=== PATIENT | female | born 1955 ===

== ENCOUNTER 2016-11-17 14:03 | Inpatient (IN) | payer MEDICARE, OTHER ==
[2016-11-17 14:42] VITALS: BMI 27.0
[2016-11-17 15:16] LABS: EOS # 0.1 K/uL (0.0-0.7); EOS % 6.2 % (0.0-4.0); HEMOGLOBIN 13.4 g/dL (11.0-16.0); LYMPH # 0.9 K/uL (1.0-4.3); MEAN CELL VOLUME 95.8 fL (81.0-99.0); MEAN CORPUSCULAR HGB CONC 33.4 g/dL (33.0-37.0); MEAN PLATELET VOLUME 8.9 fL (7.2-11.7); MONO # 0.4 K/uL (0.0-0.8); NEUT # 0.7 K/uL (1.8-7.0); NEUT % 34.8 % (50.0-75.0); NRBC % 0.4 % (0.0-2.0); RBC 4.19 Mil/uL (3.80-5.20); RED CELL DISTRIBUTION WIDTH 14.2 % (11.5-14.5); WHITE BLOOD COUNT 2.1 K/uL (4.8-10.8)
[2016-11-17 15:20] LABS: ALBUMIN 3.4 g/dL (3.5-5.0)
--- NOTE | 2016-11-17 15:22 | C.PDOC ---
History Of Present Illness 61 y/o female pmhx bipolar disorder, depression, schizoaffective disorder presents to the ED for psychiatric evaluation. Per , pt has been having visual and auditory hallucinations x5 days, he suspects due to medication change. Pt was recently put on risperidone. Denies SI, HI or any other complaints. Time Seen by Provider: 11/17/16 14:18 Chief Complaint (Nursing): Psychiatric Evaluation History Per: Patient History/Exam Limitations: no limitations Onset/Duration Of Symptoms: Days Current Symptoms Are (Timing): Still Present Suicide/Self Injury Attempted (Context): None Severity: Moderate Associated Symptoms: denies: Suicidal Thoughts Involuntary Hold By: None Recent travel outside of the [place]: No Past Medical History Reviewed: Historical Data, Nursing Documentation, Vital Signs Vital Signs: Last Vital Signs Temp 98.9 F 11/17/16 18:49 Pulse 97 H 11/17/16 18:49 Resp 15 11/17/16 18:49 BP 127/77 11/17/16 18:49 Pulse Ox 95 11/17/16 18:50 - Medical History PMH: Anxiety, Depression, Personality Disorder, Schizophrenia, Seizures Family History: States: Unknown Family Hx - Social History Hx Tobacco Use: No Hx Alcohol Use: No Hx Substance Use: No - Immunization History Hx Tetanus Toxoid Vaccination: No Hx Influenza Vaccination: No Hx Pneumococcal Vaccination: No Review Of Systems Constitutional: Negative for: Fever Cardiovascular: Negative for: Chest Pain Respiratory: Negative for: Shortness of Breath Gastrointestinal: Negative for: Abdominal Pain Psych: Positive for: Other (auditory, visual hallucinations). Negative for: Suicidal ideation Physical Exam - Physical Exam Appears: Non-toxic, Other (somnolent) Skin: Warm, Dry, No Diaphoretic, No Rash Head: Atraumatic, Normacephalic Eye(s): bilateral: Normal Inspection, PERRL (dilated), EOMI Nose: Normal Oral Mucosa: Moist Neck: Normal, Normal ROM, Supple Chest: Symmetrical Cardiovascular: Rhythm Regular, No Murmur Respiratory: Normal Breath Sounds, No Rales, No Rhonchi, No Wheezing Gastrointestinal/Abdominal: Normal Exam, Soft, No Tenderness Extremity: Normal ROM, Other (spontaneous right leg twitching) Neurological/Psych: Oriented x3, Normal Speech, Other (drowsy, somonlent) Pain Response: Withdraws With Pain ED Course And Treatment - Laboratory Results Result Diagrams: 11/17/16 15:07 11/17/16 15:07 O2 Sat by Pulse Oximetry: 95 (room air) Pulse Ox Interpretation: Normal Medical Decision Making Medical Decision Making: Plan: * UA * labs * CRISIS eval machine worker Gem evaluates patient at bedside. Labs reviewed, positive cocaine on UDS Patient is very drowsy and arousable to painful stimuli. She is unable to complete evaluation by crisis. Also notified Dr Austin Lincoln about patient in ED, and will place on observation Disposition - Disposition Disposition: HOSPITALIZED Disposition Time: 18:44 Condition: STABLE - POA Present On Arrival: None - Clinical Impression Clinical Impression: Schizoaffective disorder, Drug abuse - PA / PHOTOTYPESETTER OPERATOR / Resident Statement MD/DO has reviewed & agrees with the documentation as recorded. - Scribe Statement The provider has reviewed the documentation as recorded by the Scribe Raffy Velez All medical record entries made by the Scribe were at my direction and personally dictated by me. I have reviewed the chart and agree that the record accurately reflects my personal performance of the history, physical exam, medical decision making, and the department course for this patient. I have also personally directed, reviewed, and agree with the discharge instructions and disposition. Decision To Admit - Pt Status Changed To: Hospital Disposition Of: Observation - . Bed Request Type: Regular Admitting Physician: Surendra Lincoln Patient Diagnosis: Schizoaffective disorder, Drug abuse
[2016-11-17 15:23] LABS: AST/SGOT 60 U/L (14-36); GFR AFRICAN-AMERICAN > 60; GFR NON-AFRICAN AMERICAN > 60
[2016-11-17 15:24] LABS: ALT/SGPT 53 U/L (9-52); BLOOD UREA NITROGEN 14 mg/dL (7-17); CALCIUM 8.9 mg/dl (8.6-10.4)
[2016-11-17 16:00] LABS: URINE BILIRUBIN 1+ (NEGATIVE); URINE BLOOD NEGATIVE (NEGATIVE); URINE CLARITY Clear (Clear); URINE COLOR Amber (YELLOW); URINE GLUCOSE (UA) NORMAL (Normal); URINE LEUKOCYTE ESTERASE NEG Leu/uL (Negative); URINE NITRATE NEGATIVE (NEGATIVE); URINE PROTEIN 1+ mg/dL (NEGATIVE)
[2016-11-17 16:09] LABS: OPIATES, UR NEGATIVE (NEGATIVE); PHENCYCLIDINE, UR NEGATIVE (NEGATIVE)
[2016-11-17 16:11] LABS: BENZODIAZEPINES, UR NEGATIVE (NEGATIVE)
[2016-11-17 16:12] LABS: BARBITURATES, UR NEGATIVE (NEGATIVE)
[2016-11-18] MEDS ORDERED: Potassium Chloride 20 mEq ER Tab PO ONE (09:15)
[2016-11-18] MEDS: Enoxaparin 40 mg Syringe SC SCH (09:38)
--- NOTE | 2016-11-18 11:16 | RAD ---
PROCEDURE: Right Knee Radiographs. HISTORY: possible fracture, history of fall COMPARISON: None. FINDINGS: BONES: There is an acute displaced fracture in the medial tibial plateau with 3 mm distraction of fracture fragments and inferior displacement. Bone mineralization is normal. JOINTS: Normal. JOINT EFFUSION: There is a moderate suprapatellar joint effusion. OTHER FINDINGS: None. IMPRESSION: Acute displaced fracture in the medial tibial plateau and moderate suprapatellar joint effusion.
--- NOTE | 2016-11-18 11:29 | CP.PCM.CON ---
History of Present Illness - History of Present Illness History of Present Illness: NEURO CONSULT NOTE: 11/18/16 CHIEF COMPLAINT: CONFUSION. HPI: 61 y/o female pmhx bipolar disorder, depression, schizoaffective disorder presents to the ED for psychiatric evaluation. Per , pt has been having visual and auditory hallucinations x5 days, he suspects due to medication change. Patient was recently put on risperidone. Denies SI, HI or any other complaints. She mildly rigid from risperdone and will need congentin. She follows simple commands. Utox positive for cocaine. Discussed case with at bedside. No focal weakness in the extremities. ROS: 14 POINT REVIEW OF SYMPTOMS IS NEGATIVE PER HPI. ALLERGIES: NONE SOCIAL HISTORY: NO ILLICIT DRUG USE, SMOKING, OR ETOH USE. FAMILY: NON CONTRIBUTORY. MEDICATIONS: REVIEWED BY NURSE'S RECONCILIATION SHEET. PAST MEDICAL HISTORY: BIPOLAR DISORDER, SCHIZOAFFECTIVE, DEPRESSION. PHYSICAL EXAM: VITAL SIGNS: REVIEWED BY THE CHART GENERAL EXAM: PATIENT SEEN IN BED, IN NO ACUTE DISTRESS HEENT: PERRLA, EOMI, NECK SUPPLE, NO JVD, NO ADENOPATHY CVS: S1, S2, RRR, NO MURMURS NOTED LUNGS: CLEAR TO AUSCULTATION, NO ADVENTITIOUS SOUNDS ABDOMEN: SOFT AND NONTENDER EXTREMITIES: NO CLUBBING OR CYANOSIS. PP 2+ B/L NEURO: PT IS ALERT AND ORIENTED TO PERSON, PLACE, AND YEAR. , RECALL TO 5 MINUTES 1/3, POOR ATTENTION SPAN, SLOW THOUGHT PROCESS. FLAT AFFECT. SPEECH IS FLUENT WITHOUT ERRORS, CN II-XII INTACT, MOTOR EXAM: NORMAL TONE, NORMAL BULK OF MUSCLE, MOVES ALL EXTREMITIES EQUALLY, NO PRONATOR DRIFT SEEN. SENSORY EXAM: LIGHT TOUCH, PIN PRICK UP TO CALVES B/L, PROPRIOCEPTION , VIBRATION ARE INTACT B/L DEEP TENDON REFLEXES: 2+ THROUGHOUT. COORDINATION: FINGER TO NOSE IS INTACT. HEEL TO KAUR IS INTACT GAIT: NORMAL. LABS: REVIEWED BY THE CHART. ASSESSMENT AND PLAN: 61 y/o female pmhx bipolar disorder, depression, schizoaffective disorder presents to the ED for psychiatric evaluation. Per , pt has been having visual and auditory hallucinations x5 days, he suspects due to medication change. Patient was recently put on risperidone. Denies SI, HI or any other complaints. She mildly rigid from risperdone and will need congentin. She follows simple commands. Utox positive for cocaine. Discussed case with at bedside. No focal weakness in the extremities. IMPRESSION: CONFUSION AND RIGIDITY OF EXTREMITIES SEC TO RISPERDONE. 1. ASA 81 MG FOR STROKE PREVENTION 2.PSYCH CONSULT FOR MEDICATION ADJUSTMENT.NEEDS BETTER SLEEP HYGIENE. 3. FIORECET AT THE ACUTE ONSET OF HEADACHE. 4.CONGENTIN SHOULD BE CONSIDERED PER PSYCH. THANK YOU. Jordy BROWN MD Past Patient History - Infectious Disease Hx of Infectious Diseases: None - Past Social History Smoking Status: Never Smoked - CARDIAC Hx Hypertension: No - PULMONARY Hx Tuberculosis: No - NEUROLOGICAL Hx Seizures: Yes - HEMATOLOGICAL/ONCOLOGICAL Hx Human Immunodeficiency Virus (HIV): No - MUSCULOSKELETAL/RHEUMATOLOGICAL Hx Falls: Yes - GENITOURINARY/GYNECOLOGICAL Hx Sexually Transmitted Disorders: No - PSYCHIATRIC Hx Anxiety: Yes Hx Depression: Yes Hx Schizophrenia: Yes Hx Substance Use: No - SURGICAL HISTORY Hx Surgeries: No - ANESTHESIA Hx Anesthesia: No Meds Allergies/Adverse Reactions: Allergies Allergy/AdvReac Type Severity Reaction Status Date / Time No Known Allergies Allergy Verified 11/17/16 14:38 - Medications Medications: Current Medications Benztropine Mesylate (Cogentin) 1 mg PO BID [facility] Last Admin: 11/18/16 09:38 Dose: 1 mg Enoxaparin Sodium (Lovenox) 40 mg SC DAILY [facility] Last Admin: 11/18/16 09:38 Dose: 40 mg Home Med (Duloxetine [Cymbalta]) 60 mg PO BID [facility] Lamotrigine (Lamictal) 200 mg PO BID [facility] Last Admin: 11/18/16 09:37 Dose: 200 mg Pneumococcal Polyvalent Vaccine (Pneumovax 23 Vaccine) 0.5 ml IM .ONCE ONE Stop: 11/19/16 10:01 Results - Vital Signs Recent Vital Signs: Last Vital Signs Temp 98.5 F 11/18/16 10:28 Pulse 83 11/18/16 10:28 Resp 18 11/18/16 10:28 BP 142/84 11/18/16 10:28 Pulse Ox 97 11/17/16 23:26 - Labs Result Diagrams: 11/17/16 15:07 11/17/16 15:07
--- NOTE | 2016-11-18 20:52 | CP.PCM.HP ---
Past Patient History - Infectious Disease Hx of Infectious Diseases: None - Past Social History Smoking Status: Never Smoked - CARDIAC Hx Hypertension: No - PULMONARY Hx Tuberculosis: No - NEUROLOGICAL Hx Seizures: Yes - HEMATOLOGICAL/ONCOLOGICAL Hx Human Immunodeficiency Virus (HIV): No - MUSCULOSKELETAL/RHEUMATOLOGICAL Hx Falls: Yes - GENITOURINARY/GYNECOLOGICAL Hx Sexually Transmitted Disorders: No - PSYCHIATRIC Hx Anxiety: Yes Hx Depression: Yes Hx Schizophrenia: Yes Hx Substance Use: No - SURGICAL HISTORY Hx Surgeries: No - ANESTHESIA Hx Anesthesia: No Meds Allergies/Adverse Reactions: Allergies Allergy/AdvReac Type Severity Reaction Status Date / Time No Known Allergies Allergy Verified 11/17/16 14:38 Results - Vital Signs Recent Vital Signs: Last Vital Signs Temp 98.5 F 11/18/16 10:28 Pulse 83 11/18/16 10:28 Resp 18 11/18/16 10:28 BP 142/84 11/18/16 10:28 Pulse Ox 97 11/17/16 23:26 - Labs Result Diagrams: 11/17/16 15:07 11/17/16 15:07 Assessment & Plan - Assessment and Plan (Free Text) Plan: pt answer question but inappropriately there is a husabnd hwo cliams he is legally maried adn there is daughter so asked hosp representaive to talkto thema bout nok status cont same psyh consult neuro cnosult
--- NOTE | 2016-11-18 22:57 | CT ---
EXAM: CT Head Without Intravenous Contrast CLINICAL HISTORY: 61 years old, female; Signs and symptoms; Altered mental status/memory loss; Confusion or disorientation TECHNIQUE: Axial computed tomography images of the head/brain without intravenous contrast. This CT exam was performed using one or more of the following dose reduction techniques: automated exposure control, adjustment of the mA and/or kV according to patient size, and/or use of iterative reconstruction technique. COMPARISON: No relevant prior studies available. FINDINGS: Brain: No acute intracranial hemorrhage. Decreased attenuation is identified within the left frontoparietal lobe, high in the convexity, consistent with prior cerebral infarction. Age-appropriate periventricular white matter disease. No edema. Ventricles: Age-appropriate ventriculomegaly. Bones: No acute displaced fracture. Sinuses: Unremarkable as visualized. No acute sinusitis. Mastoid air cells: Unremarkable as visualized. No mastoid effusion. IMPRESSION: No acute intracranial hemorrhage, or suspicious mass effect.
--- NOTE | 2016-11-18 23:10 | CT ---
EXAM: CT Right Lower Extremity Without Intravenous Contrast, Knee CLINICAL HISTORY: 61 years old, female; Pain; Knee; Right; Additional info: Fracture right knee TECHNIQUE: Axial computed tomography images of the right knee without intravenous contrast. This CT exam was performed using one or more of the following dose reduction techniques: automated exposure control, adjustment of the mA and/or kV according to patient size, and/or use of iterative reconstruction technique. Coronal and sagittal reformatted images were created and reviewed. COMPARISON: No relevant prior studies available. FINDINGS: Bones/joints: A comminuted fracture is identified of the medial tibial plateau.Nondisplaced fracture of the tibial plateau is also questioned versus degenerative disease. Soft tissues: A large suprapatellar joint effusion is present, likely hemarthrosis with questionable areas of active hemorrhage (seen best on series 601, images 18 through 24; series 2, images 36 through 51). IMPRESSION: Comminuted fracture of the right knee with additional signs suggestive of active hemorrhage, as detailed above.
--- NOTE | 2016-11-19 07:01 | CP.PCM.PN ---
Subjective - Date & Time of Evaluation Date of Evaluation: 11/19/16 Time of Evaluation: 09:00 - Subjective Subjective: clinically same Objective - Vital Signs/Intake and Output Vital Signs (last 24 hours): Temp Pulse Resp BP Pulse Ox 98.5 F 67 16 127/66 98 11/18/16 23:28 11/18/16 23:28 11/18/16 23:28 11/18/16 23:28 11/18/16 23:28 - Medications Medications: Current Medications Benztropine Mesylate (Cogentin) 1 mg PO BID [facility] Last Admin: 11/18/16 09:38 Dose: 1 mg Enoxaparin Sodium (Lovenox) 40 mg SC DAILY [facility] Last Admin: 11/18/16 09:38 Dose: 40 mg Home Med (Duloxetine [Cymbalta]) 60 mg PO BID [facility] Lamotrigine (Lamictal) 200 mg PO BID [facility] Last Admin: 11/18/16 09:37 Dose: 200 mg Pneumococcal Polyvalent Vaccine (Pneumovax 23 Vaccine) 0.5 ml IM .ONCE ONE Stop: 11/19/16 10:01 - Constitutional Appears: Well - Head Exam Head Exam: ATRAUMATIC, NORMAL INSPECTION, NORMOCEPHALIC - Eye Exam Eye Exam: EOMI, Normal appearance, PERRL Pupil Exam: NORMAL ACCOMODATION, PERRL - ENT Exam ENT Exam: Mucous Membranes Moist, Normal Exam - Neck Exam Neck Exam: Full ROM, Normal Inspection. absent: Lymphadenopathy - Respiratory Exam Respiratory Exam: Decreased Breath Sounds - Cardiovascular Exam Cardiovascular Exam: REGULAR RHYTHM, +S1, +S2 - GI/Abdominal Exam GI & Abdominal Exam: Soft, Diminished Bowel Sounds - Rectal Exam Rectal Exam: Deferred
--- NOTE | 2016-11-19 09:30 | CP.PCM.CON ---
History of Present Illness - History of Present Illness History of Present Illness: ID: 61 yo combative/disoriented pt CC: Pain and restricted ROM R knee/+ R knee effusion HPI: 61 yo female presents with persistent pain and restricted ROM;hx obtained from pts daughter Pamela Jorge. Pt presents with pain and restricted ROM R knee ; Daughter indicates this situation has been in progress for at least 21/2 months. Pt toatally disoriented at time of emcounter Pt presents to [facility],and i respond to the consultation of Dr Austin Lincoln. Past Patient History - Infectious Disease Hx of Infectious Diseases: None - Past Social History Smoking Status: Never Smoked - CARDIAC Hx Hypertension: No - PULMONARY Hx Tuberculosis: No - NEUROLOGICAL Hx Seizures: Yes - HEMATOLOGICAL/ONCOLOGICAL Hx Human Immunodeficiency Virus (HIV): No - MUSCULOSKELETAL/RHEUMATOLOGICAL Hx Falls: Yes - GENITOURINARY/GYNECOLOGICAL Hx Sexually Transmitted Disorders: No - PSYCHIATRIC Hx Anxiety: Yes Hx Depression: Yes Hx Schizophrenia: Yes Hx Substance Use: No - SURGICAL HISTORY Hx Surgeries: No - ANESTHESIA Hx Anesthesia: No Meds Allergies/Adverse Reactions: Allergies Allergy/AdvReac Type Severity Reaction Status Date / Time No Known Allergies Allergy Verified 11/17/16 14:38 - Medications Medications: Current Medications Benztropine Mesylate (Cogentin) 1 mg PO BID [facility] Last Admin: 11/18/16 09:38 Dose: 1 mg Duloxetine HCl (Cymbalta) 60 mg PO BID [facility] Enoxaparin Sodium (Lovenox) 40 mg SC DAILY [facility] Last Admin: 11/18/16 09:38 Dose: 40 mg Lamotrigine (Lamictal) 200 mg PO BID [facility] Last Admin: 11/18/16 09:37 Dose: 200 mg Pneumococcal Polyvalent Vaccine (Pneumovax 23 Vaccine) 0.5 ml IM .ONCE ONE Stop: 11/19/16 10:01 Physical Exam - Skin Skin Exam: Warm Additional comments: Objecdtive exam- systemic exam- grossly wnl Pt toatlly disoriented and combative at time of evaluation Musculoskeletal- stance /gait- defrrred/ROM R knee restricted + effusion N/V grossly intact Results - Vital Signs Recent Vital Signs: Last Vital Signs Temp 98.5 F 11/18/16 23:28 Pulse 67 11/18/16 23:28 Resp 16 11/18/16 23:28 BP 127/66 11/18/16 23:28 Pulse Ox 98 11/18/16 23:28 - Labs Result Diagrams: 11/17/16 15:07 11/17/16 15:07 - Impressions Impression: Imaging planar Xrays- reveal displaced/comminuted and cronic medial tibial plateau fx with avulsion of the fragment CT scan- reveals displaced/comminuted medial tibial plateau fx with preexisting Osteoarthyitis Xray redaing unfportunately is incorrect. This is NOT an acute medial tibial plateau fx Because of the compex nature of the fracture, and the lack of reparable bone stock, the most effective solution to this problem will be Total Knee replacement Assessment & Plan - Assessment and Plan (Free Text) Assessment: A-complex/comminuted medial tibial plateau fx with preexisiting osteoarthrosis Recommend Total Knee Replacemtn arthroplasy, secondary to the loss of supportive bone at the medial tibial plateAu; evidence for medial ligament compromise and preexisting tricompart,mental osteoarthrosis of the knee P- recomment TKR when pt is cleared medically and after psych consult Situation discussed at length with pts daughter Pamela Jorge
[2016-11-19] MEDS: Enoxaparin 40 mg Syringe SC SCH (09:55)
[2016-11-19] MEDS ORDERED: Pneumococcal 23-Valent Vaccine IM ONE (10:00)
[2016-11-19] MEDS: Potassium Chloride 20 mEq ER Tab PO SCH (13:53)
--- NOTE | 2016-11-19 15:25 | PCM.PSYCH ---
Initial Psychiatric Evaluation - Initial Psychiatric Evaluation Type of Admission: Voluntary Legal Status: Capacity Chief Complaint (in patient's own words): 'I'm living with someone' History of Present Illness and Precipitating Events: Patient is 61 y/o HF, who currently lives with her , with a long history of schizoaffective disorder was admitted on the medical floor because of confusion, memory loss and inability of taking care of her ADLs. Today patient was consulted because of h/o schizoaffective disorder. Patient remained disorganized, forgetful, paranoid and delusional throughout the interview. She remained partially mute and remained disoriented to time, place and person. She doesnt know who is the president of [facility] and doesnt know who is she living with. During most of the evaluation she remained partially mute and remained confused, and paranoid. She remained demented, forgetful and delusional. When asked, 'who is she living with?' she replied, 'no one'. When asked, 'who the president of [facility]?' she replied, 'he'. However, she denies any suicidal ideation ort homicidal ideation. Current Medications: Active Medications Generic Name Dose Route Start Last Admin Trade Name Freq PRN Reason Stop Dose Admin Benztropine Mesylate 1 mg 11/18/16 10:00 11/19/16 09:54 Cogentin PO 1 mg BID JOSEFINA Administration Duloxetine HCl 60 mg 11/19/16 10:11/19/16 09:53 Cymbalta PO 60 mg BID JOSEFINA Administration Enoxaparin Sodium 40 mg 11/18/16 10:00 11/19/16 09:55 Lovenox SC 40 mg DAILY JOSEFINA Administration Lamotrigine 200 mg 11/18/16 10:11/19/16 09:54 Lamictal PO 200 mg BID JOSEFINA Administration Potassium Chloride 40 meq 11/19/16 14:00 11/19/16 13:53 K-Dur 20 Meq Er Tab PO 40 meq DAILY JOSEFINA Administration Past Psychiatric History - Past Psychiatric History Previous Treatment History: Inpatient Pertinent Medical Hx (Current Medical&Sleep Prob, Allergies): Allergies Allergy/AdvReac Type Severity Reaction Status Date / Time No Known Allergies Allergy Verified 11/17/16 14:38 Benztropine [Benztropine Mesylate] 1 mg PO BID 07/17/16 DULoxetine [Cymbalta] 60 mg PO BID 07/17/16 Lamotrigine [Lamictal] 200 mg PO BID 07/17/16 Risperidone [Risperdal] 1 mg PO BID 11/17/16 traMADol [Ultram] 50 mg PO TID 11/17/16 Review of Systems - Review of Systems All systems: reviewed and no additional remarkable complaints except - Psychiatric Psychiatric: Anxiety, Irritability, Paranoia Mental Status Examination - Personal Presentation Personal Presentation: Looks older than stated age - Affect Affect: Constricted, Depressed - Motor Activity Motor Activity: Calm - Reliability in Providing Information Reliability in Providing Information: Poor, due to alteration in thoughts, Poor , due to altered mood, Poor, due to cognitve impairment - Speech Speech: Disorganized - Mood Mood: Anxious - Formal Thought Process Formal Thought Process: Delusions, Paranoia - Hallucinations/Delusions Delusions: Persecution - Obsessions/Compulsions Obsessions: No Compulsions: No - Cognitive Functions Orientation: Place Sensorium: Drowsy Attention/Concentration: Easily distracted Estimate of Intelligence: Below average Judgement: Imparied, as evidence by: Poor judgement, Imparied, as evidence by: Lack of insight into illness - Risk Risk: Diminished functioning - Strength & Assets Inventory Strength & Assets Inventory: Family support DSM 5 DX - DSM 5 DSM 5 Diagnosis: Delirium due to general medical condition Rule out dementia with behavioral disturbance Rule out Schizoaffective disorder bipolar type - Recommended/Plan of Treatment Treatment Recommendations and Plan of Treatment: Delirium due to general medical condition Rule out dementia with behavioral disturbance Rule out Schizoaffective disorder bipolar type Lamictal 200 mg by mouth twice a day Cymbalta 60 mg by mouth twice a day Hold antipsychotic medications - Smoking Cessation Smoking Cessation Initiated: No
[2016-11-20] MEDS: Dextrose 5%/0.9% NS 1,000 ML IV SCH ×2 (08:28→17:45)
[2016-11-20 09:22] LABS: BASO % 1.1 % (0.0-2.0); EOS # 0.1 K/uL (0.0-0.7); EOS % 5.1 % (0.0-4.0); HEMOGLOBIN 14.5 g/dL (11.0-16.0); LYMPH % 35.1 % (20.0-40.0); MEAN CELL VOLUME 96.4 fL (81.0-99.0); MEAN CORPUSCULAR HEMOGLOBIN 31.9 pg (27.0-31.0); MEAN PLATELET VOLUME 8.9 fL (7.2-11.7); MONO # 0.4 K/uL (0.0-0.8); MONO % 14.3 % (0.0-10.0); NEUT # 1.2 K/uL (1.8-7.0); NEUT % 44.4 % (50.0-75.0); RBC 4.54 Mil/uL (3.80-5.20); RED CELL DISTRIBUTION WIDTH 14.1 % (11.5-14.5); WHITE BLOOD COUNT 2.8 K/uL (4.8-10.8)
--- NOTE | 2016-11-20 09:27 | CP.PCM.PN ---
Subjective - Date & Time of Evaluation Date of Evaluation: 11/20/16 Objective - Vital Signs/Intake and Output Vital Signs (last 24 hours): Temp Pulse Resp BP Pulse Ox 98.0 F 114 H 22 132/65 95 11/20/16 08:12 11/20/16 08:12 11/20/16 08:12 11/20/16 07:30 11/20/16 08:12 Intake and Output: 11/20/16 11/20/16 06:59 18:59 Intake Total 200 120 Balance 200 120 - Medications Medications: Current Medications Duloxetine HCl (Cymbalta) 60 mg PO BID [facility] Last Admin: 11/19/16 18:34 Dose: Not Given Enoxaparin Sodium (Lovenox) 40 mg SC DAILY [facility] Last Admin: 11/19/16 09:55 Dose: 40 mg Dextrose/Sodium Chloride (Dextrose 5%/0.9% Ns 1000 Ml) 1,000 mls @ 100 mls/hr IV .Q10H [facility] Last Admin: 11/20/16 08:28 Dose: 100 mls/hr Lamotrigine (Lamictal) 200 mg PO BID [facility] Last Admin: 11/19/16 18:35 Dose: 200 mg Lorazepam (Ativan) 2 mg IVP Q6H PRN PRN Reason: Anxiety Last Admin: 11/20/16 08:28 Dose: 2 mg Potassium Chloride (K-Dur 20 Meq Er Tab) 40 meq PO DAILY [facility] Last Admin: 11/19/16 13:53 Dose: 40 meq
[2016-11-20 09:31] LABS: ALBUMIN 3.7 g/dL (3.5-5.0)
--- NOTE | 2016-11-20 09:32 | CP.PCM.PN ---
Subjective - Date & Time of Evaluation Date of Evaluation: 11/20/16 Time of Evaluation: 09:29 - Subjective Subjective: Patient was agitated and just given ativan, so sedated. She doesn't answer questions. Objective - Vital Signs/Intake and Output Vital Signs (last 24 hours): Temp Pulse Resp BP Pulse Ox 98.0 F 114 H 22 132/65 95 11/20/16 08:12 11/20/16 08:12 11/20/16 08:12 11/20/16 07:30 11/20/16 08:12 Intake and Output: 11/20/16 11/20/16 06:59 18:59 Intake Total 200 120 Balance 200 120 - Medications Medications: Current Medications Duloxetine HCl (Cymbalta) 60 mg PO BID [facility] Last Admin: 11/19/16 18:34 Dose: Not Given Enoxaparin Sodium (Lovenox) 40 mg SC DAILY [facility] Last Admin: 11/19/16 09:55 Dose: 40 mg Dextrose/Sodium Chloride (Dextrose 5%/0.9% Ns 1000 Ml) 1,000 mls @ 100 mls/hr IV .Q10H [facility] Last Admin: 11/20/16 08:28 Dose: 100 mls/hr Lamotrigine (Lamictal) 200 mg PO BID [facility] Last Admin: 11/19/16 18:35 Dose: 200 mg Lorazepam (Ativan) 2 mg IVP Q6H PRN PRN Reason: Anxiety Last Admin: 11/20/16 08:28 Dose: 2 mg Potassium Chloride (K-Dur 20 Meq Er Tab) 40 meq PO DAILY [facility] Last Admin: 11/19/16 13:53 Dose: 40 meq - Extremities Exam Additional comments: RLE: no immobilizer, per nurse she removed it herself this morning and refused to have it reapplied. +DP pulse. Right knee skin intact, no erythema. Calves soft no palpable cords. Full length knee immobilizer applied with ana bandage and reinforced. Assessment and Plan (1) Right medial tibial plateau fracture Assessment & Plan: per Dr. Casarez, would plan for total knee replacement as definitive treatment would need medical clearance prior to procedure, psych f/u appreciated patient with recent cocaine use as evidenced in urine d/w Dr. Casarez, agrees with above Status: Acute
[2016-11-20 09:34] LABS: AST/SGOT 64 U/L (14-36); BLOOD UREA NITROGEN 10 mg/dL (7-17); GFR AFRICAN-AMERICAN > 60; GFR NON-AFRICAN AMERICAN > 60
[2016-11-20 09:35] LABS: ALT/SGPT 48 U/L (9-52); CALCIUM 9.4 mg/dl (8.6-10.4)
[2016-11-20] MEDS: Enoxaparin 40 mg Syringe SC SCH (10:15)
--- NOTE | 2016-11-20 13:51 | CP.PCM.PN ---
Subjective - Date & Time of Evaluation Date of Evaluation: 11/20/16 Time of Evaluation: 13:51 Objective - Vital Signs/Intake and Output Vital Signs (last 24 hours): Temp Pulse Resp BP Pulse Ox 98.1 F 93 H 20 114/73 96 11/20/16 10:00 11/20/16 10:00 11/20/16 10:00 11/20/16 10:00 11/20/16 10:00 Intake and Output: 11/20/16 11/20/16 06:59 18:59 Intake Total 200 120 Balance 200 120 - Medications Medications: Current Medications Duloxetine HCl (Cymbalta) 60 mg PO BID [facility] Last Admin: 11/19/16 18:34 Dose: Not Given Enoxaparin Sodium (Lovenox) 40 mg SC DAILY [facility] Last Admin: 11/19/16 09:55 Dose: 40 mg Dextrose/Sodium Chloride (Dextrose 5%/0.9% Ns 1000 Ml) 1,000 mls @ 100 mls/hr IV .Q10H [facility] Last Admin: 11/20/16 08:28 Dose: 100 mls/hr Lamotrigine (Lamictal) 200 mg PO BID [facility] Last Admin: 11/19/16 18:35 Dose: 200 mg Lorazepam (Ativan) 2 mg IVP Q6H PRN PRN Reason: Anxiety Last Admin: 11/20/16 08:28 Dose: 2 mg Potassium Chloride (K-Dur 20 Meq Er Tab) 40 meq PO DAILY [facility] Last Admin: 11/19/16 13:53 Dose: 40 meq - Labs Labs: 11/20/16 09:14 11/20/16 09:22
[2016-11-20] MEDS: Potassium Chloride 20 mEq ER Tab PO SCH (13:52)
--- NOTE | 2016-11-20 14:25 | RAD ---
PROCEDURE: CHEST RADIOGRAPH, 1 VIEW HISTORY: pre op COMPARISON: 10/06/2012 FINDINGS: LUNGS: The lungs are clear. PLEURA: No pneumothorax or pleural fluid seen. CARDIOVASCULAR: Normal. OSSEOUS STRUCTURES: No significant abnormalities. VISUALIZED UPPER ABDOMEN: Normal. OTHER FINDINGS: None. IMPRESSION: No active pulmonary disease.
[2016-11-21] MEDS: Dextrose 5%/0.9% NS 1,000 ML IV SCH ×2 (04:30→18:05)
[2016-11-21 08:21] LABS: HEMOGLOBIN 13.2 g/dL (11.0-16.0); MEAN CELL VOLUME 97.6 fL (81.0-99.0); MEAN CORPUSCULAR HEMOGLOBIN 32.3 pg (27.0-31.0); MEAN CORPUSCULAR HGB CONC 33.1 g/dL (33.0-37.0); MEAN PLATELET VOLUME 8.7 fL (7.2-11.7); RBC 4.08 Mil/uL (3.80-5.20); RED CELL DISTRIBUTION WIDTH 14.5 % (11.5-14.5); WHITE BLOOD COUNT 2.5 K/uL (4.8-10.8)
[2016-11-21 08:30] LABS: ALBUMIN 3.1 g/dL (3.5-5.0); INR 1.2; PROTHROMBIN TIME 13.5 SECONDS (9.7-12.2)
[2016-11-21 08:33] LABS: ALB/GLOB RATIO 0.9 (1.0-2.1); ALT/SGPT 54 U/L (9-52); AST/SGOT 58 U/L (14-36); BLOOD UREA NITROGEN 8 mg/dL (7-17); GFR AFRICAN-AMERICAN > 60; GFR NON-AFRICAN AMERICAN > 60
[2016-11-21 08:34] LABS: CALCIUM 8.1 mg/dl (8.6-10.4)
[2016-11-21] MEDS: Enoxaparin 40 mg Syringe SC SCH (10:03)
[2016-11-21] MEDS: Potassium Chloride 20 mEq ER Tab PO SCH (10:03)
--- NOTE | 2016-11-21 12:50 | PCM.PYCHPN ---
Psychiatric Progress Note - Psychiatric Progress Note Patient seen today, length of contact: 16 min Patient Chief Complaint: 'I'm living with someone' Problems Identified/Issues Discussed: Patient seen and evaluated, chart reviewed and discussed with the nurse. Patient became increasingly disorganized and internally preoccupied. She is not alert awake oriented to times place and person and appears very delirious and agitated. she is taking her IV lines off and she is trying to get out of her bed. She is put on soft restraints and 1-1 observation. Supportive therapy and psychoeducation were given. Medication Change: No Medical Record Reviewed: Yes Mental Status Examination - Cognitive Function Attention: Poor Concentration: Poor Association: Loose Fund of Knowledge: Poor - Mood Mood: Anxious - Affect Affect: Broad - Speech Speech: Slurred - Formal Thought Process Formal Thought Process: Delusions, Paranoia, Loosening of associations - Suicidal Ideation Suicidal Ideation: No - Homicidal Ideation Homicidal Ideation: No Goal/Treatment Plan - Goal/Treatment Plan Need for Continued Stay: Discharge may exacerbated symptoms, Severe functional impairment Progress Toward Problem(s) and Goals/Treatment Plan: Delirium due to general medical condition Rule out dementia with behavioral disturbance Rule out Schizoaffective disorder bipolar type Hold all psychiatric medications - Smoking Cessation Smoking Cessation Initiated: No
[2016-11-21] MEDS ORDERED: DiphenhydrAMINE 50 mg/ml Inj IM PRN (12:52)
--- NOTE | 2016-11-21 13:26 | CP.PCM.PN ---
Objective - Vital Signs/Intake and Output Vital Signs (last 24 hours): Temp Pulse Resp BP Pulse Ox 98.3 F 83 20 126/86 98 11/21/16 07:00 11/21/16 07:00 11/21/16 07:00 11/21/16 07:00 11/21/16 07:00 - Medications Medications: Current Medications Diphenhydramine HCl (Benadryl) 25 mg PO Q6 PRN PRN Reason: Agitation Diphenhydramine HCl (Benadryl) 25 mg IM Q6 PRN PRN Reason: Agitation Duloxetine HCl (Cymbalta) 60 mg PO BID [facility] Last Admin: 11/21/16 10:03 Dose: Not Given Enoxaparin Sodium (Lovenox) 40 mg SC DAILY [facility] Last Admin: 11/21/16 10:03 Dose: Not Given Haloperidol (Haldol) 5 mg PO Q6 PRN PRN Reason: Agitation Haloperidol Lactate (Haldol) 5 mg IM Q6 PRN PRN Reason: Agitation Dextrose/Sodium Chloride (Dextrose 5%/0.9% Ns 1000 Ml) 1,000 mls @ 100 mls/hr IV .Q10H [facility] Last Admin: 11/21/16 04:30 Dose: 100 mls/hr Lamotrigine (Lamictal) 200 mg PO BID [facility] Last Admin: 11/21/16 10:03 Dose: Not Given Lorazepam (Ativan) 1 mg IVP Q6H PRN PRN Reason: Anxiety Potassium Chloride (K-Dur 20 Meq Er Tab) 40 meq PO DAILY [facility] Last Admin: 11/21/16 10:03 Dose: Not Given - Labs Labs: 11/21/16 08:11 11/21/16 08:11 PT 13.5 SECONDS (9.7-12.2) H 11/21/16 08:11 INR 1.2 11/21/16 08:11 APTT 36 SECONDS (21-34) H 11/21/16 08:11
[2016-11-22] MEDS: Potassium Chloride 20 mEq ER Tab PO SCH (09:37)
[2016-11-22] MEDS: Enoxaparin 40 mg Syringe SC SCH (09:37)
--- NOTE | 2016-11-22 10:58 | CP.PCM.PN ---
Subjective - Date & Time of Evaluation Date of Evaluation: 11/22/16 Time of Evaluation: 10:51 - Subjective Subjective: Patient more alert today. She keeps eyes closed, but does follow commands and answer some questions. Daughter and sister at bedside. Questions answered regarding knee and plan. Objective - Vital Signs/Intake and Output Vital Signs (last 24 hours): Temp Pulse Resp BP Pulse Ox 98.6 F 88 20 135/81 97 11/21/16 23:05 11/21/16 23:05 11/21/16 23:05 11/21/16 23:05 11/21/16 23:05 Intake and Output: 11/22/16 11/22/16 06:59 18:59 Intake Total 800 Balance 800 - Medications Medications: Current Medications Diphenhydramine HCl (Benadryl) 25 mg PO Q6 PRN PRN Reason: Agitation Diphenhydramine HCl (Benadryl) 25 mg IM Q6 PRN PRN Reason: Agitation IF NO PO Duloxetine HCl (Cymbalta) 60 mg PO BID [facility] Last Admin: 11/22/16 09:38 Dose: 60 mg Enoxaparin Sodium (Lovenox) 40 mg SC DAILY [facility] Last Admin: 11/22/16 09:37 Dose: 40 mg Haloperidol (Haldol) 5 mg PO Q6 PRN PRN Reason: SEVERE Agitation Haloperidol Lactate (Haldol) 5 mg IM Q6 PRN PRN Reason: SEVERE Agitation IF PO REFUSED Dextrose/Sodium Chloride (Dextrose 5%/0.9% Ns 1000 Ml) 1,000 mls @ 100 mls/hr IV .Q10H [facility] Last Admin: 11/21/16 18:05 Dose: Not Given Lamotrigine (Lamictal) 200 mg PO BID [facility] Last Admin: 11/22/16 09:38 Dose: 200 mg Lorazepam (Ativan) 1 mg IVP Q6H PRN PRN Reason: Anxiety Potassium Chloride (K-Dur 20 Meq Er Tab) 40 meq PO DAILY [facility] Last Admin: 11/22/16 09:37 Dose: 40 meq - Labs Labs: 11/21/16 08:11 11/21/16 08:11 PT 13.5 SECONDS (9.7-12.2) H 11/21/16 08:11 INR 1.2 11/21/16 08:11 APTT 36 SECONDS (21-34) H 11/21/16 08:11 - Extremities Exam Additional comments: knee immobilizer adjusted. +DP pulse, +ROM ankle DF/PF, sensation intact. calves soft NT neg homans Assessment and Plan (1) Right medial tibial plateau fracture Assessment & Plan: for total knee replacement when medically stable and optimized patient lives on third floor, family is currently investigating other living arrangements NWB RLE, knee immobilizer at all times PT/OT, walker ambulation VTE proph TKR after medically optimized, either during admission or can be scheduled as outpatient if necessary depending on patient's progress d/w Dr. Casarez, agrees with above Status: Acute
--- NOTE | 2016-11-22 19:44 | CP.PCM.PN ---
Subjective - Date & Time of Evaluation Date of Evaluation: 11/22/16 Objective - Vital Signs/Intake and Output Vital Signs (last 24 hours): Temp Pulse Resp BP Pulse Ox 98.6 F 94 H 20 135/81 97 11/21/16 23:05 11/22/16 08:00 11/21/16 23:05 11/21/16 23:05 11/21/16 23:05 - Medications Medications: Current Medications Diphenhydramine HCl (Benadryl) 25 mg PO Q6 PRN PRN Reason: Agitation Diphenhydramine HCl (Benadryl) 25 mg IM Q6 PRN PRN Reason: Agitation IF NO PO Duloxetine HCl (Cymbalta) 60 mg PO BID [facility] Last Admin: 11/22/16 19:19 Dose: Not Given Enoxaparin Sodium (Lovenox) 40 mg SC DAILY [facility] Last Admin: 11/22/16 09:37 Dose: 40 mg Haloperidol (Haldol) 5 mg PO Q6 PRN PRN Reason: SEVERE Agitation Haloperidol Lactate (Haldol) 5 mg IM Q6 PRN PRN Reason: SEVERE Agitation IF PO REFUSED Dextrose/Sodium Chloride (Dextrose 5%/0.9% Ns 1000 Ml) 1,000 mls @ 100 mls/hr IV .Q10H [facility] Last Admin: 11/21/16 18:05 Dose: Not Given Lamotrigine (Lamictal) 200 mg PO BID [facility] Last Admin: 11/22/16 19:19 Dose: Not Given Lorazepam (Ativan) 1 mg IVP Q6H PRN PRN Reason: Anxiety Potassium Chloride (K-Dur 20 Meq Er Tab) 40 meq PO DAILY [facility] Last Admin: 11/22/16 09:37 Dose: 40 meq - Labs Labs: 11/21/16 08:11 11/21/16 08:11 PT 13.5 SECONDS (9.7-12.2) H 11/21/16 08:11 INR 1.2 11/21/16 08:11 APTT 36 SECONDS (21-34) H 11/21/16 08:11
[2016-11-22] MEDS: Dextrose 5%/0.9% NS 1,000 ML IV SCH (20:00)
[2016-11-23] MEDS: Dextrose 5%/0.9% NS 1,000 ML IV SCH (05:30)
--- NOTE | 2016-11-23 08:17 | CP.PCM.PN ---
Subjective - Date & Time of Evaluation Date of Evaluation: 11/23/16 Time of Evaluation: 08:14 - Subjective Subjective: Patient much more awake today. She denies pain, asks for her clothes. She knows she is in [facility]. She answers some questions appropriately, and is circumferential with others. Objective - Vital Signs/Intake and Output Vital Signs (last 24 hours): Temp Pulse Resp BP Pulse Ox 98.1 F 90 20 124/77 95 11/22/16 23:30 11/22/16 23:30 11/22/16 23:30 11/22/16 23:30 11/22/16 23:30 Intake and Output: 11/23/16 11/23/16 06:59 18:59 Intake Total 920 Balance 920 - Medications Medications: Current Medications Diphenhydramine HCl (Benadryl) 25 mg PO Q6 PRN PRN Reason: Agitation Diphenhydramine HCl (Benadryl) 25 mg IM Q6 PRN PRN Reason: Agitation IF NO PO Duloxetine HCl (Cymbalta) 60 mg PO BID [facility] Last Admin: 11/22/16 19:19 Dose: Not Given Enoxaparin Sodium (Lovenox) 40 mg SC DAILY [facility] Last Admin: 11/22/16 09:37 Dose: 40 mg Haloperidol (Haldol) 5 mg PO Q6 PRN PRN Reason: SEVERE Agitation Haloperidol Lactate (Haldol) 5 mg IM Q6 PRN PRN Reason: SEVERE Agitation IF PO REFUSED Dextrose/Sodium Chloride (Dextrose 5%/0.9% Ns 1000 Ml) 1,000 mls @ 100 mls/hr IV .Q10H [facility] Last Admin: 11/23/16 05:30 Dose: 100 mls/hr Lamotrigine (Lamictal) 200 mg PO BID [facility] Last Admin: 11/22/16 19:19 Dose: Not Given Lorazepam (Ativan) 1 mg IVP Q6H PRN PRN Reason: Anxiety Potassium Chloride (K-Dur 20 Meq Er Tab) 40 meq PO DAILY [facility] Last Admin: 11/22/16 09:37 Dose: 40 meq - Labs Labs: 11/21/16 08:11 11/21/16 08:11 PT 13.5 SECONDS (9.7-12.2) H 11/21/16 08:11 INR 1.2 11/21/16 08:11 APTT 36 SECONDS (21-34) H 11/21/16 08:11 - Extremities Exam Additional comments: RLE: +rom ankle/toes, sensation intact, +DP/PT pulses, knee immobilizer adjusted , calves soft NT neg homans Assessment and Plan (1) Right medial tibial plateau fracture Assessment & Plan: for total knee replacement pending medical clearance/optimization labs ordered d/w Dr. Casarez, agrees with above VTe proph PT/OT Status: Acute
[2016-11-23] MEDS: Potassium Chloride 20 mEq ER Tab PO SCH (09:30)
[2016-11-23] MEDS: Enoxaparin 40 mg Syringe SC SCH (09:31)
[2016-11-23 11:59] LABS: HEMOGLOBIN 12.9 g/dL (11.0-16.0); MEAN CELL VOLUME 96.9 fL (81.0-99.0); MEAN CORPUSCULAR HEMOGLOBIN 32.1 pg (27.0-31.0); MEAN CORPUSCULAR HGB CONC 33.1 g/dL (33.0-37.0); MEAN PLATELET VOLUME 9.4 fL (7.2-11.7); RED CELL DISTRIBUTION WIDTH 14.3 % (11.5-14.5); WHITE BLOOD COUNT 2.6 K/uL (4.8-10.8)
[2016-11-23 12:08] LABS: INR 1.3; PROTHROMBIN TIME 14.3 SECONDS (9.7-12.2)
[2016-11-23 12:18] LABS: GFR AFRICAN-AMERICAN > 60; GFR NON-AFRICAN AMERICAN > 60
[2016-11-23 12:19] LABS: ALT/SGPT 58 U/L (9-52); AST/SGOT 71 U/L (14-36); BLOOD UREA NITROGEN 3 mg/dL (7-17); CALCIUM 8.4 mg/dl (8.6-10.4)
[2016-11-23] MEDS ORDERED: Potassium Chloride 20 mEq ER Tab PO STA (13:03)
--- NOTE | 2016-11-23 15:38 | CP.PCM.PN ---
Subjective - Date & Time of Evaluation Date of Evaluation: 11/23/16 Time of Evaluation: 10:20 - Subjective Subjective: Clinically same Objective - Vital Signs/Intake and Output Vital Signs (last 24 hours): Temp Pulse Resp BP Pulse Ox 98.2 F 92 H 20 116/64 94 L 11/23/16 09:04 11/23/16 09:04 11/23/16 09:04 11/23/16 09:04 11/23/16 09:04 Intake and Output: 11/23/16 11/23/16 06:59 18:59 Intake Total 920 Balance 920 - Medications Medications: Current Medications Diphenhydramine HCl (Benadryl) 25 mg PO Q6 PRN PRN Reason: Agitation Diphenhydramine HCl (Benadryl) 25 mg IM Q6 PRN PRN Reason: Agitation IF NO PO Duloxetine HCl (Cymbalta) 60 mg PO BID [facility] Last Admin: 11/22/16 19:19 Dose: Not Given Enoxaparin Sodium (Lovenox) 40 mg SC DAILY [facility] Last Admin: 11/23/16 09:31 Dose: 40 mg Haloperidol (Haldol) 5 mg PO Q6 PRN PRN Reason: SEVERE Agitation Haloperidol Lactate (Haldol) 5 mg IM Q6 PRN PRN Reason: SEVERE Agitation IF PO REFUSED Lamotrigine (Lamictal) 200 mg PO BID [facility] Last Admin: 11/22/16 19:19 Dose: Not Given Lorazepam (Ativan) 1 mg IVP Q6H PRN PRN Reason: Anxiety Potassium Chloride (K-Dur 20 Meq Er Tab) 40 meq PO DAILY [facility] Last Admin: 11/23/16 09:30 Dose: 40 meq - Labs Labs: 11/23/16 11:53 11/23/16 11:53 PT 14.3 SECONDS (9.7-12.2) H 11/23/16 11:53 INR 1.3 11/23/16 11:53 APTT 47 SECONDS (21-34) H D 11/23/16 11:53 Assessment and Plan - Assessment and Plan (Free Text) Plan: Patient was seen by histopath tech. The patient after seeing the EKG is brought to the patient's cardiomegaly not appreciated Continue same Follow-up with orthopedic doctor May need a total knee replacement Patient is medically stable the same as clear by the cardiology If patient was on the replacement will hold aspirin
--- NOTE | 2016-11-23 17:04 | PCM.PYCHPN ---
Psychiatric Progress Note - Psychiatric Progress Note Patient seen today, length of contact: 16 min Patient Chief Complaint: 'I'm feeling much better' Problems Identified/Issues Discussed: Patient seen and evaluated, chart reviewed and discussed with the nurse. today patient started responding and appears more organized and more coherent. Patient reports improvement in her mood and denies any irritability and agitation. She still reports difficulty in thinking and recalling, however she denies any auditory or visual hallucinations. Reports improvement in her mood. She is taking medication and denies any side effects. Supportive therapy and psychoeducation were given. Medication Change: No Medical Record Reviewed: Yes Mental Status Examination - Cognitive Function Orientation: Person, Place, Situation, Time Memory: Intact Attention: WNL Concentration: Poor Association: WNL Fund of Knowledge: Poor - Mood Mood: Anxious - Affect Affect: Constricted, Depressed - Speech Speech: Soft - Formal Thought Process Formal Thought Process: Paranoia - Suicidal Ideation Suicidal Ideation: No - Homicidal Ideation Homicidal Ideation: No Goal/Treatment Plan - Goal/Treatment Plan Need for Continued Stay: Discharge may exacerbated symptoms, Severe functional impairment Progress Toward Problem(s) and Goals/Treatment Plan: Delirium due to general medical condition Rule out dementia with behavioral disturbance Rule out Schizoaffective disorder bipolar type Hold antipsychotic medications - Smoking Cessation Smoking Cessation Initiated: No
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
[2016-11-24 07:51] LABS: BASO % 1.4 % (0.0-2.0); EOS # 0.3 K/uL (0.0-0.7); EOS % 9.4 % (0.0-4.0); HEMOGLOBIN 14.1 g/dL (11.0-16.0); LYMPH # 1.1 K/uL (1.0-4.3); LYMPH % 39.2 % (20.0-40.0); MEAN CELL VOLUME 95.9 fL (81.0-99.0); MEAN CORPUSCULAR HEMOGLOBIN 32.5 pg (27.0-31.0); MEAN CORPUSCULAR HGB CONC 33.8 g/dL (33.0-37.0); MEAN PLATELET VOLUME 9.2 fL (7.2-11.7); MONO # 0.4 K/uL (0.0-0.8); NEUT # 0.9 K/uL (1.8-7.0); NRBC % 0.3 % (0.0-2.0); RBC 4.34 Mil/uL (3.80-5.20); RED CELL DISTRIBUTION WIDTH 14.3 % (11.5-14.5); WHITE BLOOD COUNT 2.7 K/uL (4.8-10.8)
[2016-11-24 07:59] LABS: ALBUMIN 3.1 g/dL (3.5-5.0)
[2016-11-24 08:01] LABS: GFR AFRICAN-AMERICAN > 60; GFR NON-AFRICAN AMERICAN > 60
[2016-11-24 08:02] LABS: ALB/GLOB RATIO 0.9 (1.0-2.1); ALT/SGPT 63 U/L (9-52); AST/SGOT 74 U/L (14-36); CALCIUM 8.5 mg/dl (8.6-10.4)
[2016-11-24 08:16] LABS: BLOOD UREA NITROGEN 2 mg/dL (7-17)
[2016-11-24] MEDS: Potassium Chloride 20 mEq ER Tab PO SCH (10:25)
[2016-11-24] MEDS: Enoxaparin 40 mg Syringe SC SCH (10:25)
--- NOTE | 2016-11-24 10:46 | CP.PCM.PN ---
Subjective - Date & Time of Evaluation Date of Evaluation: 11/24/16 Time of Evaluation: 10:36 - Subjective Subjective: Patient denies any pain at this time. She is more awake and alert than prior exams. She asks if surgery is today. Objective - Vital Signs/Intake and Output Vital Signs (last 24 hours): Temp Pulse Resp BP Pulse Ox 98 F 90 18 151/90 H 95 11/24/16 07:25 11/24/16 07:25 11/24/16 07:25 11/24/16 07:25 11/24/16 07:25 Intake and Output: 11/24/16 11/24/16 06:59 18:59 Intake Total 2320 Balance 2320 - Medications Medications: Current Medications Diphenhydramine HCl (Benadryl) 25 mg PO Q6 PRN PRN Reason: Agitation Diphenhydramine HCl (Benadryl) 25 mg IM Q6 PRN PRN Reason: Agitation IF NO PO Duloxetine HCl (Cymbalta) 60 mg PO BID [facility] Last Admin: 11/22/16 19:19 Dose: Not Given Enoxaparin Sodium (Lovenox) 40 mg SC DAILY [facility] Last Admin: 11/24/16 10:25 Dose: 40 mg Haloperidol (Haldol) 5 mg PO Q6 PRN PRN Reason: SEVERE Agitation Haloperidol Lactate (Haldol) 5 mg IM Q6 PRN PRN Reason: SEVERE Agitation IF PO REFUSED Lamotrigine (Lamictal) 200 mg PO BID [facility] Last Admin: 11/22/16 19:19 Dose: Not Given Lorazepam (Ativan) 1 mg IVP Q6H PRN PRN Reason: Anxiety Potassium Chloride (K-Dur 20 Meq Er Tab) 40 meq PO DAILY [facility] Last Admin: 11/24/16 10:25 Dose: 40 meq - Labs Labs: 11/24/16 07:40 11/24/16 07:40 PT 14.3 SECONDS (9.7-12.2) H 11/23/16 11:53 INR 1.3 11/23/16 11:53 APTT 47 SECONDS (21-34) H D 11/23/16 11:53 - Extremities Exam Additional comments: RLE: knee immobilizer adjusted. +ROM ankle/toes, sensation intact, calves soft NT neg homans Assessment and Plan (1) Right medial tibial plateau fracture Assessment & Plan: Definitive treatment with total knee replacement planned Cardio and medical risk stratification noted, pt for echo today patient with chronic leukopenia and TCP, ? due to medication, also with elevated coags and elevated LFTs increased risk of bleeding intraop and post operatively hematology consult prior to OR labs in am repeat urinalysis and utox defer mgmt of potassium to Dr. Salazar rodriguez d/w Dr. Casarez, agrees with above Status: Acute
--- NOTE | 2016-11-24 16:36 | CARD ---
APPROVED REPORT EXAM: Two-dimensional and M-mode echocardiogram with Doppler and color Doppler. Other Information Quality : GoodRhythm : NSR INDICATION Pre-Op Syncope possible overdose M-Mode DIMENSIONS RVDd0.79 (2.1-3.2cm)Left Atrium (MM)3.77 (2.5-4.0cm) IVSd0.88 (0.7-1.1cm)Aortic Root2.93 (2.2-3.7cm) LVDd4.68 (4.0-5.6cm)Aortic Cusp Exc.1.46 (1.5-2.0cm) PWd0.88 (0.7-1.1cm)FS (%) 38 % LVDs2.89 (2.0-3.8cm)LVEF (%)69 (>50%) Mitral Valve MV E Atcwxyij48.7cm/sMV A Nozqzmlq39.6cm/sE/A ratio0.9 TDI E/Lateral E'0.0E/Medial E'0.0 Tricuspid Valve TR Peak Tctmquyy897ms/sTR Peak Gr.[id number] LEFT VENTRICLE The left ventricle is normal size. There is normal left ventricular wall thickness. The left ventricular function is normal. The left ventricular ejection fraction is within the normal range. There is normal LV segmental wall motion. Transmitral Doppler flow pattern is Grade I-abnormal relaxation pattern. RIGHT VENTRICLE The right ventricle is normal size. There is normal right ventricular wall thickness. The right ventricular systolic function is normal. ATRIA The left atrium size is normal. The right atrium size is normal. AORTIC VALVE The aortic valve is normal in structure. MITRAL VALVE Mitral regurgitation is trace. TRICUSPID VALVE There is trace tricuspid regurgitation. GREAT VESSELS The aortic root is normal in size. The IVC is normal in size and collapses >50% with inspiration. <Conclusion> The left ventricle is normal size. There is normal left ventricular wall thickness. The left ventricular function is normal. The left ventricular ejection fraction is within the normal range. There is normal LV segmental wall motion. Transmitral Doppler flow pattern is Grade I-abnormal relaxation pattern.
[2016-11-24] MEDS ORDERED: Potassium Chloride 20 mEq ER Tab PO STA (16:41)
--- NOTE | 2016-11-24 18:11 | CP.PCM.PN ---
Subjective - Date & Time of Evaluation Date of Evaluation: 11/24/16 Time of Evaluation: 10:20 - Subjective Subjective: clinically same Objective - Vital Signs/Intake and Output Vital Signs (last 24 hours): Temp Pulse Resp BP Pulse Ox 98.2 F 85 20 120/78 94 L 11/24/16 17:46 11/24/16 17:46 11/24/16 17:46 11/24/16 17:46 11/24/16 17:46 Intake and Output: 11/24/16 11/24/16 06:59 18:59 Intake Total 2320 Balance 2320 - Medications Medications: Current Medications Diphenhydramine HCl (Benadryl) 25 mg PO Q6 PRN PRN Reason: Agitation Diphenhydramine HCl (Benadryl) 25 mg IM Q6 PRN PRN Reason: Agitation IF NO PO Duloxetine HCl (Cymbalta) 60 mg PO BID [facility] Last Admin: 11/22/16 19:19 Dose: Not Given Enoxaparin Sodium (Lovenox) 40 mg SC DAILY [facility] Last Admin: 11/24/16 10:25 Dose: 40 mg Haloperidol (Haldol) 5 mg PO Q6 PRN PRN Reason: SEVERE Agitation Haloperidol Lactate (Haldol) 5 mg IM Q6 PRN PRN Reason: SEVERE Agitation IF PO REFUSED Lamotrigine (Lamictal) 200 mg PO BID [facility] Last Admin: 11/22/16 19:19 Dose: Not Given Lorazepam (Ativan) 1 mg IVP Q6H PRN PRN Reason: Anxiety Potassium Chloride (K-Dur 20 Meq Er Tab) 40 meq PO DAILY [facility] Last Admin: 11/24/16 10:25 Dose: 40 meq - Labs Labs: 11/24/16 07:40 11/24/16 07:40 PT 14.3 SECONDS (9.7-12.2) H 11/23/16 11:53 INR 1.3 11/23/16 11:53 APTT 47 SECONDS (21-34) H D 11/23/16 11:53 - Constitutional Appears: Well - Head Exam Head Exam: ATRAUMATIC, NORMAL INSPECTION, NORMOCEPHALIC - Eye Exam Eye Exam: EOMI, Normal appearance, PERRL Pupil Exam: NORMAL ACCOMODATION, PERRL - ENT Exam ENT Exam: Mucous Membranes Moist, Normal Exam - Neck Exam Neck Exam: Full ROM, Normal Inspection. absent: Lymphadenopathy - Respiratory Exam Respiratory Exam: Decreased Breath Sounds - Cardiovascular Exam Cardiovascular Exam: REGULAR RHYTHM, +S1, +S2 - GI/Abdominal Exam GI & Abdominal Exam: Soft, Diminished Bowel Sounds - Rectal Exam Rectal Exam: Deferred
[2016-11-24] MEDS ORDERED: Phytonadione 10 mg/ml Inj (Adult) IV STA ×2 (19:47→22:52)
--- NOTE | 2016-11-24 20:39 | CP.PCM.PN ---
Subjective - Date & Time of Evaluation Date of Evaluation: 11/24/16 Time of Evaluation: 05:30 - Subjective Subjective: Patient today is more awake responsive and alert. Denies any chest pain shortness of breath mild right knee discomfort. Objective - Vital Signs/Intake and Output Vital Signs (last 24 hours): Temp Pulse Resp BP Pulse Ox 98.2 F 85 20 120/78 94 L 11/24/16 17:46 11/24/16 17:46 11/24/16 17:46 11/24/16 17:46 11/24/16 17:46 - Medications Medications: Current Medications Diphenhydramine HCl (Benadryl) 25 mg PO Q6 PRN PRN Reason: Agitation Diphenhydramine HCl (Benadryl) 25 mg IM Q6 PRN PRN Reason: Agitation IF NO PO Duloxetine HCl (Cymbalta) 60 mg PO BID [facility] Last Admin: 11/22/16 19:19 Dose: Not Given Enoxaparin Sodium (Lovenox) 40 mg SC DAILY [facility] Last Admin: 11/24/16 10:25 Dose: 40 mg Haloperidol (Haldol) 5 mg PO Q6 PRN PRN Reason: SEVERE Agitation Haloperidol Lactate (Haldol) 5 mg IM Q6 PRN PRN Reason: SEVERE Agitation IF PO REFUSED Lamotrigine (Lamictal) 200 mg PO BID [facility] Last Admin: 11/22/16 19:19 Dose: Not Given Lorazepam (Ativan) 1 mg IVP Q6H PRN PRN Reason: Anxiety Potassium Chloride (K-Dur 20 Meq Er Tab) 40 meq PO DAILY [facility] Last Admin: 11/24/16 10:25 Dose: 40 meq - Labs Labs: 11/24/16 07:40 11/24/16 07:40 PT 14.3 SECONDS (9.7-12.2) H 11/23/16 11:53 INR 1.3 11/23/16 11:53 APTT 47 SECONDS (21-34) H D 11/23/16 11:53 - Constitutional Appears: Well, No Acute Distress - Head Exam Head Exam: ATRAUMATIC, NORMAL INSPECTION, NORMOCEPHALIC - Eye Exam Eye Exam: EOMI, PERRL Pupil Exam: NORMAL ACCOMODATION - Neck Exam Neck Exam: Full ROM, Normal Inspection - Respiratory Exam Respiratory Exam: Clear to Ausculation Bilateral, NORMAL BREATHING PATTERN - Cardiovascular Exam Cardiovascular Exam: RRR, +S1, +S2, Murmur - GI/Abdominal Exam GI & Abdominal Exam: Soft, Normal Bowel Sounds - Extremities Exam Extremities Exam: Normal Capillary Refill, Normal Inspection - Back Exam Back Exam: NORMAL INSPECTION - Psychiatric Exam Psychiatric exam: Normal Mood Assessment and Plan (1) Preop cardiovascular exam Assessment & Plan: Echocardiogram reviewed shows normal left ventricular ejection fraction with no wall motion abnormality normal valves. As per ACC/AHA guidelines she can proceed with plan total knee replacement with low risk for perioperative cardiac event. Status: Acute (2) Syncope and collapse Assessment & Plan: Etiology most likely secondary to combination of drug overdose with psychotropics, cannot rule out arrhythmia secondary to borderline prolonged QT. Continue to monitor on telemetry perioperatively. Status: Resolved (3) Prolonged Q-T interval on ECG Assessment & Plan: Continue to monitor QT intervals. Avoid using psychotropics that would prolong her QT interval. Status: Acute
[2016-11-24] MEDS ORDERED: Phytonadione 10 MG in Sodium Chloride 0.9% 50 ML IV ONE (23:00)
[2016-11-24] MEDS ORDERED: DiphenhydrAMINE 12.5 mg/5 ml LIQ UD (5 ml) PO STA (23:20)
[2016-11-25 08:06] LABS: BASO % 1.2 % (0.0-2.0); EOS # 0.3 K/uL (0.0-0.7); EOS % 8.7 % (0.0-4.0); LYMPH # 1.2 K/uL (1.0-4.3); LYMPH % 40.2 % (20.0-40.0); MEAN CELL VOLUME 96.4 fL (81.0-99.0); MEAN CORPUSCULAR HEMOGLOBIN 32.2 pg (27.0-31.0); MEAN CORPUSCULAR HGB CONC 33.4 g/dL (33.0-37.0); MEAN PLATELET VOLUME 9.6 fL (7.2-11.7); MONO # 0.5 K/uL (0.0-0.8); MONO % 17.2 % (0.0-10.0); NEUT % 32.7 % (50.0-75.0); NRBC % 0.2 % (0.0-2.0); RBC 4.67 Mil/uL (3.80-5.20); RED CELL DISTRIBUTION WIDTH 14.4 % (11.5-14.5); WHITE BLOOD COUNT 3.1 K/uL (4.8-10.8)
[2016-11-25 08:26] LABS: ALBUMIN 3.3 g/dL (3.5-5.0)
[2016-11-25 08:29] LABS: ALB/GLOB RATIO 0.9 (1.0-2.1); AST/SGOT 80 U/L (14-36); GFR AFRICAN-AMERICAN > 60; GFR NON-AFRICAN AMERICAN > 60
[2016-11-25 08:30] LABS: ALT/SGPT 68 U/L (9-52); BLOOD UREA NITROGEN 3 mg/dL (7-17)
[2016-11-25] MEDS: Potassium Chloride 20 mEq ER Tab PO SCH (09:16)
[2016-11-25] MEDS: Enoxaparin 40 mg Syringe SC SCH (09:16)
--- NOTE | 2016-11-25 14:11 | CP.PCM.CON ---
History of Present Illness - History of Present Illness History of Present Illness: 61 year old female with a history of bipolar depression, schizoaffective disorder, admitted with visual/auditory hallucinations, for orthopedic knee surgery, found to be leukopenic, anemic, and coagulopathic. The patient denies abnormal bleeding and bruising. She has had surgery in the past without wound or bleeding complications. She recently was switched to risperdal. Past medical history: Bipolar depression, schizoaffective disorder Past surgical history; Family history: Denies hematologic and oncologic problems Social history: +cocaine Allergies: NKA Review of systems: All remaining review of systems including HEENT, cardiovascular, respiratory, gastrointestinal, genitourinary, musculoskeletal, dermatologic, neurologic, and psychiatric are negative unless mentioned in the HPI. Past Patient History - Infectious Disease Hx of Infectious Diseases: None - Past Medical History & Family History Past Medical History?: Yes - Past Social History Smoking Status: Never Smoked Drugs: Cocaine, Opiates Home Situation {Lives}: Other - CARDIAC Hx Cardiac Disorders: No Hx Angina: No Hx Atrial Fibrillation: No Hx Cardia Arrhythmia: No Hx Circulatory Problems: No Hx Congestive Heart Failure: No Hx Heart Attack: No Hx Heart Murmur: No Hx Heart Transplant: No Hx Hypercholesterolemia: No Hx Hypertension: No - PULMONARY Hx Respiratory Disorders: No Hx Asthma: No Hx Bronchitis: No Hx Chronic Obstructive Pulmonary Disease (COPD): No Hx Emphysema: No Hx Lung Cancer: No Hx Tuberculosis: No - NEUROLOGICAL HX Cerebrovascular Accident: Yes - HEENT Hx HEENT Problems: No Hx Blind: No Hx Cataracts: No Hx Difficulty Chewing: No - RENAL Hx Chronic Kidney Disease: No - ENDOCRINE/METABOLIC Hx Endocrine Disorders: No Hx Diabetes Mellitus Type 2: No - HEMATOLOGICAL/ONCOLOGICAL Hx Human Immunodeficiency Virus (HIV): No - MUSCULOSKELETAL/RHEUMATOLOGICAL Hx Falls: Yes - GENITOURINARY/GYNECOLOGICAL Hx Sexually Transmitted Disorders: No - PSYCHIATRIC Hx Anxiety: Yes Hx Depression: Yes Hx Schizophrenia: Yes Hx Substance Use: No - SURGICAL HISTORY Hx Surgeries: No - ANESTHESIA Hx Anesthesia: No Meds Allergies/Adverse Reactions: Allergies Allergy/AdvReac Type Severity Reaction Status Date / Time No Known Allergies Allergy Verified 11/17/16 14:38 - Medications Medications: Current Medications Diphenhydramine HCl (Benadryl) 25 mg PO Q6 PRN PRN Reason: Agitation Diphenhydramine HCl (Benadryl) 25 mg IM Q6 PRN PRN Reason: Agitation IF NO PO Duloxetine HCl (Cymbalta) 60 mg PO BID [facility] Last Admin: 11/22/16 19:19 Dose: Not Given Famotidine (Pepcid) 20 mg PO BID [facility] Last Admin: 11/25/16 09:16 Dose: 20 mg Haloperidol (Haldol) 5 mg PO Q6 PRN PRN Reason: SEVERE Agitation Haloperidol Lactate (Haldol) 5 mg IM Q6 PRN PRN Reason: SEVERE Agitation IF PO REFUSED Lamotrigine (Lamictal) 200 mg PO BID [facility] Last Admin: 11/22/16 19:19 Dose: Not Given Lorazepam (Ativan) 1 mg IVP Q6H PRN PRN Reason: Anxiety Potassium Chloride (K-Dur 20 Meq Er Tab) 40 meq PO DAILY [facility] Last Admin: 11/25/16 09:16 Dose: 40 meq Physical Exam - Head Exam Head Exam: ATRAUMATIC - Eye Exam Eye Exam: Normal appearance - ENT Exam ENT Exam: Mucous Membranes Dry - Respiratory Exam Respiratory Exam: NORMAL BREATHING PATTERN - Cardiovascular Exam Cardiovascular Exam: +S1, +S2 - GI/Abdominal Exam GI & Abdominal Exam: Normal Bowel Sounds - Extremities Exam Extremities exam: Positive for: normal inspection - Neurological Exam Neurological exam: Oriented x3 - Psychiatric Exam Psychiatric exam: Normal Affect, Normal Mood - Skin Skin Exam: Warm Results - Vital Signs Recent Vital Signs: Last Vital Signs Temp 97.6 F 11/25/16 07:00 Pulse 76 11/25/16 07:00 Resp 20 11/25/16 07:00 BP 126/83 11/25/16 07:00 Pulse Ox 100 11/25/16 07:00 - Labs Result Diagrams: 11/25/16 07:53 11/25/16 07:53 Labs: Laboratory Results - last 24 hr 11/25/16 11/25/16 07:53 07:53 WBC 3.1 L RBC 4.67 Hgb 15.0 Hct 45.0 MCV 96.4 MCH 32.2 H MCHC 33.4 RDW 14.4 Plt Count 93 L MPV 9.6 Neut % (Auto) 32.7 L Lymph % (Auto) 40.2 H [place] % (Auto) 17.2 H Eos % (Auto) 8.7 H Baso % (Auto) 1.2 Neut # 1.0 L Lymph # 1.2 [place] # 0.5 Eos # 0.3 Baso # 0.0 Sodium 140 Potassium 3.6 Chloride 106 Carbon Dioxide 27 Anion Gap 12 BUN 3 L Creatinine 0.5 L Est GFR ( Amer) > 60 Est GFR (Non-Af Amer) > 60 Random Glucose 102 Calcium 9.0 Total Bilirubin 1.3 AST 80 H ALT 68 H Alkaline Phosphatase 158 H Total Protein 6.9 Albumin 3.3 L Globulin 3.5 Albumin/Globulin Ratio 0.9 L Assessment & Plan (1) Thrombocytopenia Assessment and Plan: mild ?related to psychiatric meds; currently on hold will check manual plt count. cleared from hematology standpoint for orthopedic surgery if plt >75,000 Status: Acute (2) Coagulopathy Assessment and Plan: likely nutritional component as pt not eating well will give vitamin K IV cleared from hematology standpoint for surgery if INR < 1.5 Status: Acute (3) Leukopenia Assessment and Plan: with mild neutropenia likely related to psychiatric meds; currently on hold Thank you for this interesting consult. Status: Acute
--- NOTE | 2016-11-25 14:27 | CP.PCM.PN ---
Subjective - Date & Time of Evaluation Date of Evaluation: 11/25/16 Time of Evaluation: 10:40 - Subjective Subjective: clinically same Objective - Vital Signs/Intake and Output Vital Signs (last 24 hours): Temp Pulse Resp BP Pulse Ox 97.6 F 76 20 126/83 100 11/25/16 07:00 11/25/16 07:00 11/25/16 07:00 11/25/16 07:00 11/25/16 07:00 Intake and Output: 11/25/16 11/25/16 06:59 18:59 Intake Total 480 480 Output Total 600 Balance -120 480 - Medications Medications: Current Medications Diphenhydramine HCl (Benadryl) 25 mg PO Q6 PRN PRN Reason: Agitation Diphenhydramine HCl (Benadryl) 25 mg IM Q6 PRN PRN Reason: Agitation IF NO PO Duloxetine HCl (Cymbalta) 60 mg PO BID [facility] Last Admin: 11/22/16 19:19 Dose: Not Given Famotidine (Pepcid) 20 mg PO BID [facility] Last Admin: 11/25/16 09:16 Dose: 20 mg Haloperidol (Haldol) 5 mg PO Q6 PRN PRN Reason: SEVERE Agitation Haloperidol Lactate (Haldol) 5 mg IM Q6 PRN PRN Reason: SEVERE Agitation IF PO REFUSED Lamotrigine (Lamictal) 200 mg PO BID [facility] Last Admin: 11/22/16 19:19 Dose: Not Given Lorazepam (Ativan) 1 mg IVP Q6H PRN PRN Reason: Anxiety Potassium Chloride (K-Dur 20 Meq Er Tab) 40 meq PO DAILY [facility] Last Admin: 11/25/16 09:16 Dose: 40 meq - Labs Labs: 11/25/16 07:53 11/25/16 07:53 PT 14.3 SECONDS (9.7-12.2) H 11/23/16 11:53 INR 1.3 11/23/16 11:53 APTT 47 SECONDS (21-34) H D 11/23/16 11:53 - Constitutional Appears: Well - Head Exam Head Exam: ATRAUMATIC, NORMAL INSPECTION, NORMOCEPHALIC - Eye Exam Eye Exam: EOMI, Normal appearance, PERRL Pupil Exam: NORMAL ACCOMODATION, PERRL - ENT Exam ENT Exam: Mucous Membranes Moist, Normal Exam - Neck Exam Neck Exam: Full ROM, Normal Inspection. absent: Lymphadenopathy - Respiratory Exam Respiratory Exam: Decreased Breath Sounds - Cardiovascular Exam Cardiovascular Exam: REGULAR RHYTHM, +S1, +S2 - GI/Abdominal Exam GI & Abdominal Exam: Soft, Diminished Bowel Sounds - Rectal Exam Rectal Exam: Deferred
[2016-11-26 08:36] LABS: HEMOGLOBIN 16.7 g/dL (11.0-16.0); LYMPH # 1.5 K/uL (1.0-4.3); MEAN PLATELET VOLUME 9.5 fL (7.2-11.7); MONO # 0.7 K/uL (0.0-0.8); NEUT # 1.5 K/uL (1.8-7.0); WHITE BLOOD COUNT 4.1 K/uL (4.8-10.8)
[2016-11-26 08:42] LABS: ALBUMIN 3.6 g/dL (3.5-5.0)
[2016-11-26 08:44] LABS: BASO % 0.8 % (0.0-2.0); EOS # 0.4 K/uL (0.0-0.7); EOS % 8.9 % (0.0-4.0); LYMPH % 36.8 % (20.0-40.0); MEAN CELL VOLUME 96.3 fL (81.0-99.0); MEAN CORPUSCULAR HEMOGLOBIN 32.4 pg (27.0-31.0); MEAN CORPUSCULAR HGB CONC 33.6 g/dL (33.0-37.0); MONO % 17.6 % (0.0-10.0); NEUT % 35.9 % (50.0-75.0); NRBC % 0.2 % (0.0-2.0); RBC 5.17 Mil/uL (3.80-5.20); RED CELL DISTRIBUTION WIDTH 14.4 % (11.5-14.5)
[2016-11-26 08:45] LABS: ALB/GLOB RATIO 0.9 (1.0-2.1); AST/SGOT 88 U/L (14-36); GFR AFRICAN-AMERICAN > 60; GFR NON-AFRICAN AMERICAN > 60
[2016-11-26 08:46] LABS: ALT/SGPT 67 U/L (9-52); BLOOD UREA NITROGEN 7 mg/dL (7-17); CALCIUM 9.3 mg/dl (8.6-10.4)
[2016-11-26] MEDS: Potassium Chloride 20 mEq ER Tab PO SCH (09:25)
--- NOTE | 2016-11-26 20:56 | CP.PCM.PN ---
Subjective - Date & Time of Evaluation Date of Evaluation: 11/26/16 Time of Evaluation: 09:40 - Subjective Subjective: clinically same Objective - Vital Signs/Intake and Output Vital Signs (last 24 hours): Temp Pulse Resp BP Pulse Ox 98.1 F 103 H 20 118/78 98 11/26/16 15:00 11/26/16 16:00 11/26/16 15:00 11/26/16 15:00 11/26/16 15:00 Intake and Output: 11/26/16 11/27/16 18:59 06:59 Intake Total 400 Balance 400 - Medications Medications: Current Medications Diphenhydramine HCl (Benadryl) 25 mg PO Q6 PRN PRN Reason: Agitation Diphenhydramine HCl (Benadryl) 25 mg IM Q6 PRN PRN Reason: Agitation IF NO PO Duloxetine HCl (Cymbalta) 60 mg PO BID [facility] Last Admin: 11/22/16 19:19 Dose: Not Given Famotidine (Pepcid) 20 mg PO BID [facility] Last Admin: 11/26/16 18:04 Dose: 20 mg Haloperidol (Haldol) 5 mg PO Q6 PRN PRN Reason: SEVERE Agitation Haloperidol Lactate (Haldol) 5 mg IM Q6 PRN PRN Reason: SEVERE Agitation IF PO REFUSED Lamotrigine (Lamictal) 200 mg PO BID [facility] Last Admin: 11/22/16 19:19 Dose: Not Given Lorazepam (Ativan) 1 mg IVP Q6H PRN PRN Reason: Anxiety Potassium Chloride (K-Dur 20 Meq Er Tab) 40 meq PO DAILY [facility] Last Admin: 11/26/16 09:25 Dose: 40 meq Temazepam (Restoril) 15 mg PO HS PRN PRN Reason: Insomnia Last Admin: 11/25/16 23:07 Dose: 15 mg - Labs Labs: 11/26/16 08:05 11/26/16 08:05 PT 14.3 SECONDS (9.7-12.2) H 11/23/16 11:53 INR 1.3 11/23/16 11:53 APTT 47 SECONDS (21-34) H D 11/23/16 11:53 - Constitutional Appears: Well - Head Exam Head Exam: ATRAUMATIC, NORMAL INSPECTION, NORMOCEPHALIC - Eye Exam Eye Exam: EOMI, Normal appearance, PERRL Pupil Exam: NORMAL ACCOMODATION, PERRL - ENT Exam ENT Exam: Mucous Membranes Moist, Normal Exam - Neck Exam Neck Exam: Full ROM, Normal Inspection. absent: Lymphadenopathy - Respiratory Exam Respiratory Exam: Decreased Breath Sounds - Cardiovascular Exam Cardiovascular Exam: REGULAR RHYTHM, +S1, +S2 - GI/Abdominal Exam GI & Abdominal Exam: Soft, Diminished Bowel Sounds - Rectal Exam Rectal Exam: Deferred
--- NOTE | 2016-11-26 21:22 | CP.PCM.PN ---
Subjective - Date & Time of Evaluation Date of Evaluation: 11/26/16 Time of Evaluation: 21:15 - Subjective Subjective: feeling fine, denies any complaints , tachycardia noted on telemetry Objective - Vital Signs/Intake and Output Vital Signs (last 24 hours): Temp Pulse Resp BP Pulse Ox 98.1 F 103 H 20 118/78 98 11/26/16 15:00 11/26/16 16:00 11/26/16 15:00 11/26/16 15:00 11/26/16 15:00 Intake and Output: 11/26/16 11/27/16 18:59 06:59 Intake Total 400 Balance 400 - Medications Medications: Current Medications Diphenhydramine HCl (Benadryl) 25 mg PO Q6 PRN PRN Reason: Agitation Diphenhydramine HCl (Benadryl) 25 mg IM Q6 PRN PRN Reason: Agitation IF NO PO Duloxetine HCl (Cymbalta) 60 mg PO BID [facility] Last Admin: 11/22/16 19:19 Dose: Not Given Famotidine (Pepcid) 20 mg PO BID [facility] Last Admin: 11/26/16 18:04 Dose: 20 mg Haloperidol (Haldol) 5 mg PO Q6 PRN PRN Reason: SEVERE Agitation Haloperidol Lactate (Haldol) 5 mg IM Q6 PRN PRN Reason: SEVERE Agitation IF PO REFUSED Lamotrigine (Lamictal) 200 mg PO BID [facility] Last Admin: 11/22/16 19:19 Dose: Not Given Lorazepam (Ativan) 1 mg IVP Q6H PRN PRN Reason: Anxiety Potassium Chloride (K-Dur 20 Meq Er Tab) 40 meq PO DAILY [facility] Last Admin: 11/26/16 09:25 Dose: 40 meq Temazepam (Restoril) 15 mg PO HS PRN PRN Reason: Insomnia Last Admin: 11/25/16 23:07 Dose: 15 mg - Labs Labs: 11/26/16 08:05 11/26/16 08:05 PT 14.3 SECONDS (9.7-12.2) H 11/23/16 11:53 INR 1.3 11/23/16 11:53 APTT 47 SECONDS (21-34) H D 11/23/16 11:53 - Constitutional Appears: Well, No Acute Distress - Head Exam Head Exam: ATRAUMATIC, NORMAL INSPECTION, NORMOCEPHALIC - Eye Exam Eye Exam: EOMI, Normal appearance, PERRL Pupil Exam: NORMAL ACCOMODATION, PERRL - ENT Exam ENT Exam: Mucous Membranes Moist, Normal Exam - Neck Exam Neck Exam: Full ROM, Normal Inspection - Respiratory Exam Respiratory Exam: Clear to Ausculation Bilateral, NORMAL BREATHING PATTERN - Cardiovascular Exam Cardiovascular Exam: Tachycardia, REGULAR RHYTHM, +S1, +S2, Murmur - GI/Abdominal Exam GI & Abdominal Exam: Normal Bowel Sounds - Rectal Exam Rectal Exam: NORMAL INSPECTION - Extremities Exam Extremities Exam: Full ROM, Normal Capillary Refill, Normal Inspection - Back Exam Back Exam: NORMAL INSPECTION - Neurological Exam Neurological Exam: Alert, Awake, CN II-XII Intact, Oriented x3 - Psychiatric Exam Psychiatric exam: Normal Affect, Normal Mood - Skin Skin Exam: Intact, Normal Color Assessment and Plan (1) Preop cardiovascular exam Assessment & Plan: cleared by hematology As per ACC/AHA guidelines can proceed with surgery with low risk for perioperative cardiac event Status: Acute (2) Syncope and collapse Assessment & Plan: 2' to drug overdose + comibination of drug abuse and psychotropics Status: Resolved (3) Prolonged Q-T interval on ECG Assessment & Plan: repeat EKG in am Status: Acute (4) Tachycardia with heart rate 100-120 beats per minute Assessment & Plan: 2' to possibly underlying anxiety/psych hx may consider adding low dose BB if persists Status: Acute
--- NOTE | 2016-11-27 00:54 | CP.PCM.PN ---
Subjective - Date & Time of Evaluation Date of Evaluation: 11/25/16 Time of Evaluation: 17:00 - Subjective Subjective: No complaints. Objective - Vital Signs/Intake and Output Vital Signs (last 24 hours): Temp Pulse Resp BP Pulse Ox 98.1 F 80 20 106/67 96 11/26/16 23:15 11/26/16 23:15 11/26/16 23:15 11/26/16 23:15 11/26/16 23:15 Intake and Output: 11/26/16 11/27/16 18:59 06:59 Intake Total 400 420 Output Total 500 Balance 400 -80 - Medications Medications: Current Medications Diphenhydramine HCl (Benadryl) 25 mg PO Q6 PRN PRN Reason: Agitation Diphenhydramine HCl (Benadryl) 25 mg IM Q6 PRN PRN Reason: Agitation IF NO PO Duloxetine HCl (Cymbalta) 60 mg PO BID [facility] Last Admin: 11/22/16 19:19 Dose: Not Given Famotidine (Pepcid) 20 mg PO BID [facility] Last Admin: 11/26/16 18:04 Dose: 20 mg Haloperidol (Haldol) 5 mg PO Q6 PRN PRN Reason: SEVERE Agitation Haloperidol Lactate (Haldol) 5 mg IM Q6 PRN PRN Reason: SEVERE Agitation IF PO REFUSED Lamotrigine (Lamictal) 200 mg PO BID [facility] Last Admin: 11/22/16 19:19 Dose: Not Given Lorazepam (Ativan) 1 mg IVP Q6H PRN PRN Reason: Anxiety Potassium Chloride (K-Dur 20 Meq Er Tab) 40 meq PO DAILY [facility] Last Admin: 11/26/16 09:25 Dose: 40 meq Temazepam (Restoril) 15 mg PO HS PRN PRN Reason: Insomnia Last Admin: 11/26/16 22:04 Dose: 15 mg - Labs Labs: 11/26/16 08:05 11/26/16 08:05 PT 14.3 SECONDS (9.7-12.2) H 11/23/16 11:53 INR 1.3 11/23/16 11:53 APTT 47 SECONDS (21-34) H D 11/23/16 11:53 - Head Exam Head Exam: ATRAUMATIC - Eye Exam Eye Exam: Normal appearance - ENT Exam ENT Exam: Mucous Membranes Dry - Respiratory Exam Respiratory Exam: NORMAL BREATHING PATTERN - Cardiovascular Exam Cardiovascular Exam: +S1, +S2 - GI/Abdominal Exam GI & Abdominal Exam: Normal Bowel Sounds - Extremities Exam Extremities Exam: Normal Inspection Assessment and Plan (1) Thrombocytopenia Assessment & Plan: improving likely related to psych meds; on hold Status: Acute (2) Coagulopathy Assessment & Plan: nutritional s/p vit k Status: Acute (3) Leukopenia Assessment & Plan: improved likely secondary to psych meds; on hold Status: Acute
--- NOTE | 2016-11-27 00:56 | CP.PCM.PN ---
Subjective - Date & Time of Evaluation Date of Evaluation: 11/26/16 Time of Evaluation: 14:05 - Subjective Subjective: No complaints. Objective - Vital Signs/Intake and Output Vital Signs (last 24 hours): Temp Pulse Resp BP Pulse Ox 98.1 F 80 20 106/67 96 11/26/16 23:15 11/26/16 23:15 11/26/16 23:15 11/26/16 23:15 11/26/16 23:15 Intake and Output: 11/26/16 11/27/16 18:59 06:59 Intake Total 400 420 Output Total 500 Balance 400 -80 - Medications Medications: Current Medications Diphenhydramine HCl (Benadryl) 25 mg PO Q6 PRN PRN Reason: Agitation Diphenhydramine HCl (Benadryl) 25 mg IM Q6 PRN PRN Reason: Agitation IF NO PO Duloxetine HCl (Cymbalta) 60 mg PO BID [facility] Last Admin: 11/22/16 19:19 Dose: Not Given Famotidine (Pepcid) 20 mg PO BID [facility] Last Admin: 11/26/16 18:04 Dose: 20 mg Haloperidol (Haldol) 5 mg PO Q6 PRN PRN Reason: SEVERE Agitation Haloperidol Lactate (Haldol) 5 mg IM Q6 PRN PRN Reason: SEVERE Agitation IF PO REFUSED Lamotrigine (Lamictal) 200 mg PO BID [facility] Last Admin: 11/22/16 19:19 Dose: Not Given Lorazepam (Ativan) 1 mg IVP Q6H PRN PRN Reason: Anxiety Potassium Chloride (K-Dur 20 Meq Er Tab) 40 meq PO DAILY [facility] Last Admin: 11/26/16 09:25 Dose: 40 meq Temazepam (Restoril) 15 mg PO HS PRN PRN Reason: Insomnia Last Admin: 11/26/16 22:04 Dose: 15 mg - Labs Labs: 11/26/16 08:05 11/26/16 08:05 PT 14.3 SECONDS (9.7-12.2) H 11/23/16 11:53 INR 1.3 11/23/16 11:53 APTT 47 SECONDS (21-34) H D 11/23/16 11:53 - Head Exam Head Exam: ATRAUMATIC - Eye Exam Eye Exam: Normal appearance - ENT Exam ENT Exam: Mucous Membranes Dry - Respiratory Exam Respiratory Exam: NORMAL BREATHING PATTERN - Cardiovascular Exam Cardiovascular Exam: +S1, +S2 - GI/Abdominal Exam GI & Abdominal Exam: Normal Bowel Sounds - Extremities Exam Extremities Exam: Normal Inspection Assessment and Plan (1) Thrombocytopenia Assessment & Plan: improving likely secondary to psych meds; on hold Status: Acute (2) Coagulopathy Assessment & Plan: nutritional, s/p vit k repeat coags in AM Status: Acute (3) Leukopenia Assessment & Plan: improving likely secondary to psych meds; on hold Status: Acute
[2016-11-27 06:55] LABS: INR 1.2; PROTHROMBIN TIME 13.2 SECONDS (9.7-12.2)
[2016-11-27 07:20] LABS: ALBUMIN 3.5 g/dL (3.5-5.0)
[2016-11-27 07:22] LABS: GFR AFRICAN-AMERICAN > 60; GFR NON-AFRICAN AMERICAN > 60
[2016-11-27 07:23] LABS: ALB/GLOB RATIO 0.9 (1.0-2.1); ALT/SGPT 63 U/L (9-52); AST/SGOT 83 U/L (14-36); BLOOD UREA NITROGEN 8 mg/dL (7-17)
[2016-11-27 07:24] LABS: CALCIUM 8.9 mg/dl (8.6-10.4)
[2016-11-27 07:46] LABS: HEMOGLOBIN 16.3 g/dL (11.0-16.0); MEAN CORPUSCULAR HEMOGLOBIN 32.3 pg (27.0-31.0); MEAN CORPUSCULAR HGB CONC 33.3 g/dL (33.0-37.0); MEAN PLATELET VOLUME 9.5 fL (7.2-11.7); RBC 5.05 Mil/uL (3.80-5.20); RED CELL DISTRIBUTION WIDTH 14.3 % (11.5-14.5); WHITE BLOOD COUNT 4.3 K/uL (4.8-10.8)
--- NOTE | 2016-11-27 09:22 | CP.PCM.PN ---
Subjective - Date & Time of Evaluation Date of Evaluation: 11/27/16 Time of Evaluation: 09:30 - Subjective Subjective: clinically stable, status quo no complaints overnight awaiting TKR Objective - Vital Signs/Intake and Output Vital Signs (last 24 hours): Temp Pulse Resp BP Pulse Ox 98.2 F 95 H 20 116/82 94 L 11/27/16 08:29 11/27/16 08:29 11/27/16 08:29 11/27/16 08:29 11/27/16 08:29 Intake and Output: 11/27/16 11/27/16 06:59 18:59 Intake Total 420 Output Total 850 Balance -430 - Medications Medications: Current Medications Diphenhydramine HCl (Benadryl) 25 mg PO Q6 PRN PRN Reason: Agitation Diphenhydramine HCl (Benadryl) 25 mg IM Q6 PRN PRN Reason: Agitation IF NO PO Duloxetine HCl (Cymbalta) 60 mg PO BID [facility] Last Admin: 11/22/16 19:19 Dose: Not Given Famotidine (Pepcid) 20 mg PO BID [facility] Last Admin: 11/26/16 18:04 Dose: 20 mg Haloperidol (Haldol) 5 mg PO Q6 PRN PRN Reason: SEVERE Agitation Haloperidol Lactate (Haldol) 5 mg IM Q6 PRN PRN Reason: SEVERE Agitation IF PO REFUSED Lamotrigine (Lamictal) 200 mg PO BID [facility] Last Admin: 11/22/16 19:19 Dose: Not Given Lorazepam (Ativan) 1 mg IVP Q6H PRN PRN Reason: Anxiety Potassium Chloride (K-Dur 20 Meq Er Tab) 40 meq PO DAILY [facility] Last Admin: 11/26/16 09:25 Dose: 40 meq Temazepam (Restoril) 15 mg PO HS PRN PRN Reason: Insomnia Last Admin: 11/26/16 22:04 Dose: 15 mg - Labs Labs: 11/27/16 06:28 11/27/16 06:28 PT 13.2 SECONDS (9.7-12.2) H 11/27/16 06:28 INR 1.2 11/27/16 06:28 APTT 38 SECONDS (21-34) H 11/27/16 06:28 - Constitutional Appears: Well, No Acute Distress - Head Exam Head Exam: ATRAUMATIC, NORMAL INSPECTION, NORMOCEPHALIC - Eye Exam Eye Exam: EOMI, Normal appearance, PERRL Pupil Exam: NORMAL ACCOMODATION, PERRL - ENT Exam ENT Exam: Mucous Membranes Moist, Normal Exam - Neck Exam Neck Exam: Full ROM, Normal Inspection - Respiratory Exam Respiratory Exam: Clear to Ausculation Bilateral, NORMAL BREATHING PATTERN - Cardiovascular Exam Cardiovascular Exam: REGULAR RHYTHM, RRR, +S1, +S2, Murmur - GI/Abdominal Exam GI & Abdominal Exam: Soft, Normal Bowel Sounds - Rectal Exam Rectal Exam: Deferred - Extremities Exam Extremities Exam: Full ROM, Normal Capillary Refill, Normal Inspection - Back Exam Back Exam: NORMAL INSPECTION - Neurological Exam Neurological Exam: Alert, Awake, CN II-XII Intact, Oriented x3 - Psychiatric Exam Psychiatric exam: Normal Affect, Normal Mood - Skin Skin Exam: Intact, Normal Color, Warm Assessment and Plan (1) Preop cardiovascular exam Assessment & Plan: low risk for perioperative cardiac event Status: Acute (2) Syncope and collapse Assessment & Plan: 2' to drug overdose resolved stable Status: Resolved (3) Prolonged Q-T interval on ECG Assessment & Plan: stable repeat ekg in am Status: Acute (4) Tachycardia with heart rate 100-120 beats per minute Status: Acute
[2016-11-27] MEDS: Potassium Chloride 20 mEq ER Tab PO SCH (09:28)
[2016-11-27 10:24] LABS: SQUAMOUS EPITHIAL 1 /hpf (0-5); URINE BILIRUBIN NEGATIVE (NEGATIVE); URINE BLOOD 1+ (NEGATIVE); URINE CLARITY Hazy (Clear); URINE COLOR Yellow (YELLOW); URINE GLUCOSE (UA) NORMAL (Normal); URINE LEUKOCYTE ESTERASE 3+ Leu/uL (Negative); URINE NITRATE NEGATIVE (NEGATIVE); URINE PROTEIN NEGATIVE (NEGATIVE)
[2016-11-27 10:25] LABS: BENZODIAZEPINES, UR NEGATIVE (NEGATIVE)
[2016-11-27 10:26] LABS: BARBITURATES, UR NEGATIVE (NEGATIVE)
[2016-11-27 10:29] LABS: OPIATES, UR NEGATIVE (NEGATIVE); PHENCYCLIDINE, UR NEGATIVE (NEGATIVE)
--- NOTE | 2016-11-27 10:47 | CP.PCM.PN ---
Subjective - Date & Time of Evaluation Date of Evaluation: 11/27/16 Time of Evaluation: 10:44 - Subjective Subjective: Patient without complaints. Objective - Vital Signs/Intake and Output Vital Signs (last 24 hours): Temp Pulse Resp BP Pulse Ox 98.2 F 95 H 20 116/82 94 L 11/27/16 08:29 11/27/16 08:29 11/27/16 08:29 11/27/16 08:29 11/27/16 08:29 Intake and Output: 11/27/16 11/27/16 06:59 18:59 Intake Total 420 Output Total 850 Balance -430 - Medications Medications: Current Medications Diphenhydramine HCl (Benadryl) 25 mg PO Q6 PRN PRN Reason: Agitation Diphenhydramine HCl (Benadryl) 25 mg IM Q6 PRN PRN Reason: Agitation IF NO PO Duloxetine HCl (Cymbalta) 60 mg PO BID [facility] Last Admin: 11/22/16 19:19 Dose: Not Given Famotidine (Pepcid) 20 mg PO BID [facility] Last Admin: 11/27/16 09:28 Dose: 20 mg Haloperidol (Haldol) 5 mg PO Q6 PRN PRN Reason: SEVERE Agitation Last Admin: 11/27/16 09:28 Dose: 5 mg Haloperidol Lactate (Haldol) 5 mg IM Q6 PRN PRN Reason: SEVERE Agitation IF PO REFUSED Lamotrigine (Lamictal) 200 mg PO BID [facility] Last Admin: 11/22/16 19:19 Dose: Not Given Lorazepam (Ativan) 1 mg IVP Q6H PRN PRN Reason: Anxiety Potassium Chloride (K-Dur 20 Meq Er Tab) 40 meq PO DAILY [facility] Last Admin: 11/27/16 09:28 Dose: 40 meq Temazepam (Restoril) 15 mg PO HS PRN PRN Reason: Insomnia Last Admin: 11/26/16 22:04 Dose: 15 mg - Labs Labs: 11/27/16 06:28 11/27/16 06:28 PT 13.2 SECONDS (9.7-12.2) H 11/27/16 06:28 INR 1.2 11/27/16 06:28 APTT 38 SECONDS (21-34) H 11/27/16 06:28 - Extremities Exam Additional comments: RLE: knee immobilizer intact, +ROM ankle/toes sensation intact calves soft NT neg homans Assessment and Plan (1) Right medial tibial plateau fracture Assessment & Plan: To be treated with TKR per Dr. Casarez PT notes appreciated hematology consultation appreciated, cleared as platelets >75, INR <1.5 coags somewhat improved after Vit K utox repeated, negative for cocaine u/a repeated, 3+ leuk est, urine culture ordered d/w Dr. Casarez Status: Acute
[2016-11-27 14:05] LABS: SQUAMOUS EPITHIAL 2 /hpf (0-5); URINE BILIRUBIN NEGATIVE (NEGATIVE); URINE BLOOD 1+ (NEGATIVE); URINE CLARITY Hazy (Clear); URINE COLOR Amber (YELLOW); URINE GLUCOSE (UA) NORMAL (Normal); URINE LEUKOCYTE ESTERASE 3+ Leu/uL (Negative); URINE NITRATE POSITIVE (NEGATIVE); URINE PROTEIN NEGATIVE (NEGATIVE); WBC CLUMPS FEW /hpf
--- NOTE | 2016-11-27 14:37 | CP.PCM.PN ---
Subjective - Date & Time of Evaluation Date of Evaluation: 11/27/16 Time of Evaluation: 11:00 - Subjective Subjective: clinically same Objective - Vital Signs/Intake and Output Vital Signs (last 24 hours): Temp Pulse Resp BP Pulse Ox 98.2 F 95 H 20 116/82 94 L 11/27/16 08:29 11/27/16 08:29 11/27/16 08:29 11/27/16 08:29 11/27/16 08:29 Intake and Output: 11/27/16 11/27/16 06:59 18:59 Intake Total 420 Output Total 850 Balance -430 - Medications Medications: Current Medications Diphenhydramine HCl (Benadryl) 25 mg PO Q6 PRN PRN Reason: Agitation Diphenhydramine HCl (Benadryl) 25 mg IM Q6 PRN PRN Reason: Agitation IF NO PO Duloxetine HCl (Cymbalta) 60 mg PO BID [facility] Last Admin: 11/22/16 19:19 Dose: Not Given Famotidine (Pepcid) 20 mg PO BID [facility] Last Admin: 11/27/16 09:28 Dose: 20 mg Haloperidol (Haldol) 5 mg PO Q6 PRN PRN Reason: SEVERE Agitation Last Admin: 11/27/16 09:28 Dose: 5 mg Haloperidol Lactate (Haldol) 5 mg IM Q6 PRN PRN Reason: SEVERE Agitation IF PO REFUSED Lamotrigine (Lamictal) 200 mg PO BID [facility] Last Admin: 11/22/16 19:19 Dose: Not Given Lorazepam (Ativan) 1 mg IVP Q6H PRN PRN Reason: Anxiety Potassium Chloride (K-Dur 20 Meq Er Tab) 40 meq PO DAILY [facility] Last Admin: 11/27/16 09:28 Dose: 40 meq Temazepam (Restoril) 15 mg PO HS PRN PRN Reason: Insomnia Last Admin: 11/26/16 22:04 Dose: 15 mg - Labs Labs: 11/27/16 06:28 11/27/16 06:28 PT 13.2 SECONDS (9.7-12.2) H 11/27/16 06:28 INR 1.2 11/27/16 06:28 APTT 38 SECONDS (21-34) H 11/27/16 06:28 - Constitutional Appears: Well - Head Exam Head Exam: ATRAUMATIC, NORMAL INSPECTION, NORMOCEPHALIC - Eye Exam Eye Exam: EOMI, Normal appearance, PERRL Pupil Exam: NORMAL ACCOMODATION, PERRL - ENT Exam ENT Exam: Mucous Membranes Moist, Normal Exam - Neck Exam Neck Exam: Full ROM, Normal Inspection. absent: Lymphadenopathy - Respiratory Exam Respiratory Exam: Decreased Breath Sounds - Cardiovascular Exam Cardiovascular Exam: REGULAR RHYTHM, +S1, +S2 - GI/Abdominal Exam GI & Abdominal Exam: Soft, Diminished Bowel Sounds - Rectal Exam Rectal Exam: Deferred
[2016-11-28] MEDS: Potassium Chloride 20 mEq ER Tab PO SCH (09:01)
--- NOTE | 2016-11-28 09:16 | CP.PCM.PN ---
Subjective - Date & Time of Evaluation Date of Evaluation: 11/28/16 Time of Evaluation: 10:33 - Subjective Subjective: PGY 2 Medicine Note- Dr. Armando Lincoln's service. Patient seen and examined. Patient eagerly awaiting surgical procedure for knee replacement however in light of current UTI, surgery will have to be rescheduled to prevent increased risk of infection. Patient does not have any complaints at this time. Objective - Vital Signs/Intake and Output Vital Signs (last 24 hours): Temp Pulse Resp BP Pulse Ox 98.2 F 85 18 112/76 98 11/28/16 07:20 11/28/16 07:35 11/28/16 07:20 11/28/16 07:20 11/28/16 07:20 - Medications Medications: Current Medications Diphenhydramine HCl (Benadryl) 25 mg PO Q6 PRN PRN Reason: Agitation Last Admin: 11/28/16 08:56 Dose: 25 mg Diphenhydramine HCl (Benadryl) 25 mg IM Q6 PRN PRN Reason: Agitation IF NO PO Duloxetine HCl (Cymbalta) 60 mg PO BID [facility] Last Admin: 11/22/16 19:19 Dose: Not Given Famotidine (Pepcid) 20 mg PO BID [facility] Last Admin: 11/28/16 09:01 Dose: 20 mg Haloperidol (Haldol) 5 mg PO Q6 PRN PRN Reason: SEVERE Agitation Last Admin: 11/28/16 08:57 Dose: 5 mg Haloperidol Lactate (Haldol) 5 mg IM Q6 PRN PRN Reason: SEVERE Agitation IF PO REFUSED Lamotrigine (Lamictal) 200 mg PO BID [facility] Last Admin: 11/22/16 19:19 Dose: Not Given Lorazepam (Ativan) 1 mg IVP Q6H PRN PRN Reason: Anxiety Potassium Chloride (K-Dur 20 Meq Er Tab) 40 meq PO DAILY [facility] Last Admin: 11/28/16 09:01 Dose: 40 meq Temazepam (Restoril) 15 mg PO HS PRN PRN Reason: Insomnia Last Admin: 11/26/16 22:04 Dose: 15 mg - Labs Labs: 11/27/16 06:28 11/27/16 06:28 PT 13.2 SECONDS (9.7-12.2) H 11/27/16 06:28 INR 1.2 07/10/17 06:28 APTT 38 SECONDS (21-34) H 11/27/16 06:28 - Constitutional Appears: Non-toxic, No Acute Distress - Head Exam Head Exam: ATRAUMATIC, NORMAL INSPECTION, NORMOCEPHALIC - Eye Exam Eye Exam: EOMI, Normal appearance, PERRL Pupil Exam: NORMAL ACCOMODATION, PERRL - ENT Exam ENT Exam: Mucous Membranes Moist - Neck Exam Neck Exam: Full ROM - Respiratory Exam Respiratory Exam: NORMAL BREATHING PATTERN. absent: Wheezes - Cardiovascular Exam Cardiovascular Exam: +S1, +S2 - GI/Abdominal Exam GI & Abdominal Exam: Soft, Normal Bowel Sounds - Extremities Exam Extremities Exam: Normal Capillary Refill. absent: Full ROM Additional comments: knee immobilizer noted - Back Exam Back Exam: Full ROM, NORMAL INSPECTION - Neurological Exam Neurological Exam: Alert, Awake, CN II-XII Intact, Oriented x3 - Psychiatric Exam Psychiatric exam: Normal Affect, Normal Mood - Skin Skin Exam: Normal Color, Warm Assessment and Plan (1) Right medial tibial plateau fracture Assessment & Plan: Patient for Right total knee replacement Although patient has been cleared from a cardiology and Hematology standpoint; patient found to have UTI and will thus need to be treated first. F/U with Ortho recommendations Status: Acute (2) UTI (urinary tract infection) Assessment & Plan: UC positive. Cultures grew out gram positive cocci. On Cefotaxime 1 mg Q8H . Started 11/28. Florastor BID Will await sensitivities F/U sensitivities Status: Acute (3) Prolonged Q-T interval on ECG Assessment & Plan: Patient's most recent EKGs are stable. Continue to hold psych meds. In particular, those that may prolong QT interval. F/U with Dr. Ruiz, (Cardiology) recommendations Status: Acute (4) Thrombocytopenia Assessment & Plan: Stable at this time-continue to monitor. Per Dr. Owusu ([facility])- Patient cleared for surgery as long as platelets remain above 75,000. Continue to monitor Status: Acute (5) Transient alteration of awareness Assessment & Plan: On admission- now resolved. Likely secondarily due to new medication ( Risperidone) administration. Hold psych meds. F/U with Dr. Weir, (Psychiatry) recommendations Status: Acute (6) Prophylactic measure Assessment & Plan: SCDs Pepcid 20 mg PO BID Status: Acute - Assessment and Plan (Free Text) Assessment: Management and planning per Dr. Armando Lincoln.
--- NOTE | 2016-11-28 09:37 | CP.PCM.PN ---
Subjective - Date & Time of Evaluation Date of Evaluation: 11/28/16 Time of Evaluation: 09:35 - Subjective Subjective: Patient without complaints. Objective - Vital Signs/Intake and Output Vital Signs (last 24 hours): Temp Pulse Resp BP Pulse Ox 98.2 F 85 18 112/76 98 11/28/16 07:20 11/28/16 07:35 11/28/16 07:20 11/28/16 07:20 11/28/16 07:20 - Medications Medications: Current Medications Diphenhydramine HCl (Benadryl) 25 mg PO Q6 PRN PRN Reason: Agitation Last Admin: 11/28/16 08:56 Dose: 25 mg Diphenhydramine HCl (Benadryl) 25 mg IM Q6 PRN PRN Reason: Agitation IF NO PO Duloxetine HCl (Cymbalta) 60 mg PO BID [facility] Last Admin: 11/22/16 19:19 Dose: Not Given Famotidine (Pepcid) 20 mg PO BID [facility] Last Admin: 11/28/16 09:01 Dose: 20 mg Haloperidol (Haldol) 5 mg PO Q6 PRN PRN Reason: SEVERE Agitation Last Admin: 11/28/16 08:57 Dose: 5 mg Haloperidol Lactate (Haldol) 5 mg IM Q6 PRN PRN Reason: SEVERE Agitation IF PO REFUSED Lamotrigine (Lamictal) 200 mg PO BID [facility] Last Admin: 11/22/16 19:19 Dose: Not Given Lorazepam (Ativan) 1 mg IVP Q6H PRN PRN Reason: Anxiety Potassium Chloride (K-Dur 20 Meq Er Tab) 40 meq PO DAILY [facility] Last Admin: 11/28/16 09:01 Dose: 40 meq Temazepam (Restoril) 15 mg PO HS PRN PRN Reason: Insomnia Last Admin: 11/26/16 22:04 Dose: 15 mg - Labs Labs: 11/27/16 06:28 11/27/16 06:28 PT 13.2 SECONDS (9.7-12.2) H 11/27/16 06:28 INR 1.2 11/27/16 06:28 APTT 38 SECONDS (21-34) H 11/27/16 06:28 - Extremities Exam Additional comments: RLE: +ROM ankle/toes, sensation intact, calves soft NT neg homans +knee immob Assessment and Plan (1) Right medial tibial plateau fracture Assessment & Plan: for TKR +UTI on u/a, ucx pending, defer to medical team d/w Dr. Casarez regarding scheduling of TKR, says the knee replacement can be done at a later time when the UTI is resolved due to increased risk of infection. Patient can follow up in office within 1 week of discharge [phone] continue knee immobilizer at all times strict NWB RLE, PT notes appreciated VTE proph Status: Acute
--- NOTE | 2016-11-28 11:40 | CP.PCM.PN ---
Subjective - Date & Time of Evaluation Date of Evaluation: 11/28/16 Time of Evaluation: 11:40 - Subjective Subjective: clinically same Objective - Vital Signs/Intake and Output Vital Signs (last 24 hours): Temp Pulse Resp BP Pulse Ox 98.2 F 85 18 112/76 98 11/28/16 07:20 11/28/16 07:35 11/28/16 07:20 11/28/16 07:20 11/28/16 07:20 - Medications Medications: Current Medications Diphenhydramine HCl (Benadryl) 25 mg PO Q6 PRN PRN Reason: Agitation Last Admin: 11/28/16 08:56 Dose: 25 mg Diphenhydramine HCl (Benadryl) 25 mg IM Q6 PRN PRN Reason: Agitation IF NO PO Duloxetine HCl (Cymbalta) 60 mg PO BID [facility] Last Admin: 11/22/16 19:19 Dose: Not Given Famotidine (Pepcid) 20 mg PO BID [facility] Last Admin: 11/28/16 09:01 Dose: 20 mg Haloperidol (Haldol) 5 mg PO Q6 PRN PRN Reason: SEVERE Agitation Last Admin: 11/28/16 08:57 Dose: 5 mg Haloperidol Lactate (Haldol) 5 mg IM Q6 PRN PRN Reason: SEVERE Agitation IF PO REFUSED Lamotrigine (Lamictal) 200 mg PO BID [facility] Last Admin: 11/22/16 19:19 Dose: Not Given Lorazepam (Ativan) 1 mg IVP Q6H PRN PRN Reason: Anxiety Potassium Chloride (K-Dur 20 Meq Er Tab) 40 meq PO DAILY [facility] Last Admin: 11/28/16 09:01 Dose: 40 meq Temazepam (Restoril) 15 mg PO HS PRN PRN Reason: Insomnia Last Admin: 11/26/16 22:04 Dose: 15 mg - Labs Labs: 11/27/16 06:28 11/27/16 06:28 PT 13.2 SECONDS (9.7-12.2) H 11/27/16 06:28 INR 1.2 11/27/16 06:28 APTT 38 SECONDS (21-34) H 11/27/16 06:28 - Constitutional Appears: Well - Head Exam Head Exam: ATRAUMATIC, NORMAL INSPECTION, NORMOCEPHALIC - Eye Exam Eye Exam: EOMI, Normal appearance, PERRL Pupil Exam: NORMAL ACCOMODATION, PERRL - ENT Exam ENT Exam: Mucous Membranes Moist, Normal Exam - Neck Exam Neck Exam: Full ROM, Normal Inspection. absent: Lymphadenopathy - Respiratory Exam Respiratory Exam: Decreased Breath Sounds - Cardiovascular Exam Cardiovascular Exam: REGULAR RHYTHM, +S1, +S2 - GI/Abdominal Exam GI & Abdominal Exam: Soft, Diminished Bowel Sounds - Rectal Exam Rectal Exam: Deferred
[2016-11-28 11:52] LABS: BASO % 1.3 % (0.0-2.0); EOS # 0.4 K/uL (0.0-0.7); EOS % 9.4 % (0.0-4.0); HEMOGLOBIN 15.5 g/dL (11.0-16.0); LYMPH # 1.6 K/uL (1.0-4.3); LYMPH % 40.6 % (20.0-40.0); MEAN CELL VOLUME 96.9 fL (81.0-99.0); MEAN CORPUSCULAR HEMOGLOBIN 32.5 pg (27.0-31.0); MEAN CORPUSCULAR HGB CONC 33.5 g/dL (33.0-37.0); MEAN PLATELET VOLUME 9.4 fL (7.2-11.7); MONO # 0.7 K/uL (0.0-0.8); MONO % 18.6 % (0.0-10.0); NEUT # 1.2 K/uL (1.8-7.0); NEUT % 30.1 % (50.0-75.0); NRBC % 0.2 % (0.0-2.0); RBC 4.77 Mil/uL (3.80-5.20); RED CELL DISTRIBUTION WIDTH 14.6 % (11.5-14.5); WHITE BLOOD COUNT 3.9 K/uL (4.8-10.8)
[2016-11-28 12:01] LABS: ALBUMIN 3.4 g/dL (3.5-5.0)
[2016-11-28 12:04] LABS: ALT/SGPT 77 U/L (9-52); AST/SGOT 75 U/L (14-36); BLOOD UREA NITROGEN 8 mg/dL (7-17); GFR AFRICAN-AMERICAN > 60; GFR NON-AFRICAN AMERICAN > 60
[2016-11-28 12:05] LABS: MAGNESIUM 1.8 mg/dL (1.6-2.3)
[2016-11-28 16:03] VITALS: BP 154/72; PULSE 70; RESP 20; TEMP 97.4; O2SAT 97
[2016-11-28] MEDS ORDERED: Amoxicillin-Clav 875-125 mg Tab PO STA (16:25)
--- NOTE | 2016-11-28 16:29 | CP.PCM.PN ---
Subjective - Date & Time of Evaluation Date of Evaluation: 11/28/16 Time of Evaluation: 16:29 - Subjective Subjective: PT SEEN BY DR SORIANO AND CLEARED FOR D/C TO [facility] PENDING DISPO BY ORTHO. [employer] DISCUSSED WITH MELITON PIERCE AND DR. DIEHL WILL NOT BE DOING SURGERY ON THE PT THIS WEEK AND UNTIL HER UTI CLEARS. SHE CAN BE D/C TO [facility] AND F/U WITH HIM IN THE OFFICE NEXT WEEK, AND THEN OUTPATIENT KNEE SURGERY CAN BE SCHEDULED. DISCUSSED THIS AT LENGTH WITH PT AND DAUGHTER, HERMANN, AND THEY ARE IN AGREEMENT WITH PLAN. TRANSPORTATION TO BE ARRANGED BY . ALSO, ABX ORDERS CARRIED OUT PER DR. SORIANO; FIRST DOSE OF AUGMENTIN TO BE GIVEN HERE PRIOR TO D/ C. NO FURTHER ORDERS. Objective - Vital Signs/Intake and Output Vital Signs (last 24 hours): Temp Pulse Resp BP Pulse Ox 97.4 F L 70 20 154/72 H 97 11/28/16 15:00 11/28/16 15:00 11/28/16 15:00 11/28/16 15:00 11/28/16 15:00 - Medications Medications: Current Medications Diphenhydramine HCl (Benadryl) 25 mg PO Q6 PRN PRN Reason: Agitation Last Admin: 11/28/16 14:45 Dose: 25 mg Diphenhydramine HCl (Benadryl) 25 mg IM Q6 PRN PRN Reason: Agitation IF NO PO Duloxetine HCl (Cymbalta) 60 mg PO BID [facility] Last Admin: 11/22/16 19:19 Dose: Not Given Famotidine (Pepcid) 20 mg PO BID [facility] Last Admin: 11/28/16 09:01 Dose: 20 mg Haloperidol (Haldol) 5 mg PO Q6 PRN PRN Reason: SEVERE Agitation Last Admin: 11/28/16 14:28 Dose: 5 mg Haloperidol Lactate (Haldol) 5 mg IM Q6 PRN PRN Reason: SEVERE Agitation IF PO REFUSED Cefotaxime Sodium 1 gm/ Sodium (Chloride) 100 mls @ 100 mls/hr IV Q8H [facility] Lamotrigine (Lamictal) 200 mg PO BID [facility] Last Admin: 11/22/16 19:19 Dose: Not Given Potassium Chloride (K-Dur 20 Meq Er Tab) 40 meq PO DAILY [facility] Last Admin: 11/28/16 09:01 Dose: 40 meq Saccharomyces Boulardii (Florastor) 250 mg PO BID [facility] Temazepam (Restoril) 15 mg PO HS PRN PRN Reason: Insomnia Last Admin: 11/26/16 22:04 Dose: 15 mg - Labs Labs: 11/28/16 11:43 11/28/16 11:43 PT 13.2 SECONDS (9.7-12.2) H 11/27/16 06:28 INR 1.2 11/27/16 06:28 APTT 38 SECONDS (21-34) H 11/27/16 06:28
[2016-11-28] MEDS ORDERED: Cefotaxime 1 GM in Sodium Chloride 0.9% 100 ML IV SCH ×2 (17:00→18:00)
[2016-11-28] MEDS ORDERED: Saccharomyces Boulardi 250 mg Cap PO SCH (18:00)
--- NOTE | 2016-12-01 00:28 | CARD ---
APPROVED REPORT EKG Measurement Heart [id number] <Conclusion> Normal sinus rhythm Minimal voltage criteria for LVH, may be normal variant Borderline ECG
== END 2016-11-28 18:33 | DRG 948 ==
LOC: C.ER 14:03 → C.9E 18:41 → C.3T 19:47 → OBSVTOIN 11-18 10:43 → EEVIPCON 11-18 10:43 → C.6T 11-20 09:36
PROVIDERS: ADMIT Internal Medicine Nephrology; ATTEND Internal Medicine Nephrology
DX: R41.82 Altered mental status, unspecified (principal); F05 Delirium due to known physiological condition; D69.6 Thrombocytopenia, unspecified; D70.9 Neutropenia, unspecified; F03.91 Unspecified dementia, unspecified severity, with behavioral disturbance; M84.461A Pathological fracture, right tibia, initial encounter for fracture; N39.0 Urinary tract infection, site not specified; F25.0 Schizoaffective disorder, bipolar type; F60.9 Personality disorder, unspecified; F41.9 Anxiety disorder, unspecified; R51 Headache; M17.11 Unilateral primary osteoarthritis, right knee; Z86.73 Personal history of transient ischemic attack (TIA), and cerebral infarction without residual deficits; R55 Syncope and collapse; D64.9 Anemia, unspecified; R45.1 Restlessness and agitation; R79.89 Other specified abnormal findings of blood chemistry; I45.81 Long QT syndrome; F14.188 Cocaine abuse with other cocaine-induced disorder; T43.95XA Adverse effect of unspecified psychotropic drug, initial encounter

== ENCOUNTER 2017-11-05 17:07 | Inpatient (IN) | payer MEDICARE, OTHER ==
[2017-11-05 17:07] VITALS: BMI 27.2
[2017-11-05 18:08] LABS: EOS # 0.1 K/uL (0.0-0.7); EOS % 4.3 % (0.0-4.0); LYMPH % 40.5 % (20.0-40.0); MEAN CORPUSCULAR HEMOGLOBIN 27.6 pg (27.0-31.0); MEAN CORPUSCULAR HGB CONC 32.6 g/dL (33.0-37.0); MEAN PLATELET VOLUME 8.2 fL (7.2-11.7); MONO # 0.5 K/uL (0.0-0.8); NEUT # 0.9 K/uL (1.8-7.0); NEUT % 36.2 % (50.0-75.0); NRBC % 0.2 % (0.0-2.0); RBC 4.06 Mil/uL (3.80-5.20); RED CELL DISTRIBUTION WIDTH 18.5 % (11.5-14.5); WHITE BLOOD COUNT 2.5 K/uL (4.8-10.8)
[2017-11-05 18:09] LABS: HEMOGLOBIN 11.2 g/dL (11.0-16.0); INR 1.1; MEAN CELL VOLUME 84.7 fL (81.0-99.0); PROTHROMBIN TIME 12.2 SECONDS (9.7-12.2)
[2017-11-05 18:14] LABS: ALB/GLOB RATIO 1.1 (1.0-2.1); ALT/SGPT 72 U/L (9-52); AST/SGOT 101 U/L (14-36); BLOOD UREA NITROGEN 6 mg/dL (7-17); GFR AFRICAN-AMERICAN > 60; GFR NON-AFRICAN AMERICAN > 60
[2017-11-05] MEDS ORDERED: Piperacillin/Tazobact 3.375 GM in Sodium Chloride 100 ML IVPB STA (18:35)
[2017-11-05] MEDS ORDERED: Vancomycin 1 gm/NS 200 ml 1 GM/200 ML BAG IVPB STA (18:41)
[2017-11-05] MEDS ORDERED: Piperacill/Tazo 3.375gm in Dex 3.375 GM/50 ML BAG IVPB ONE (18:45)
--- NOTE | 2017-11-05 20:22 | C.PDOC ---
History Of Present Illness Patient is a 62 y/o female, with a Hx of multiple right knee surgeries, who presents to the ED with a complaint of right knee pain. Patient notes area is warm to the touch. Patient reports right knee is artificial knee. Admits to being able to ambulate but does experience some pain; denies any fever. No other physical complaints. Time Seen by Provider: 11/05/17 17:43 Chief Complaint (Nursing): Lower Extremity Problem/Injury History Per: Patient History/Exam Limitations: no limitations Current Symptoms Are (Timing): Still Present Recent travel outside of the [place]: No Past Medical History Reviewed: Historical Data, Nursing Documentation, Vital Signs Vital Signs: Last Vital Signs Temp 98.6 F 11/05/17 23:14 Pulse 79 11/05/17 23:14 Resp 18 11/05/17 23:14 BP 114/71 11/05/17 23:14 Pulse Ox 96 11/05/17 23:14 - Medical History PMH: Anxiety, Bipolar Disorder, Depression, Gastritis, Gall Bladder Disease ( farzana), Personality Disorder, Schizophrenia, Seizures, TIA Denies: Alzheimer's Disease, Asthma, Atrial Fibrillation, Bronchitis, Cardia Arrhythmia, CHF, COPD, Dementia, Emphysema, HIV, HTN, Hypercholesterolemia, Chronic Kidney Disease, Sexually Transmitted Disease Surgical History: Cholecystectomy, (x2) Other Surgeries: right knee replacement surgery - [facility] Procedures COMPUTER ASSISTED PROCEDURE OF LOWER EXTREMITY (12/14/16) DRAINAGE OF RIGHT KNEE JOINT, PERC ENDO APPROACH, DIAGN (05/28/17) EXCISION OF RIGHT KNEE JOINT, OPEN APPROACH (08/06/17) EXCISION OF RIGHT LOWER LEG MUSCLE, OPEN APPROACH (05/28/17) EXTIRPATION OF MATTER FROM RIGHT KNEE JOINT, OPEN APPROACH (01/07/17) FLUOROSCOPY OF SUPERIOR VENA CAVA, GUIDANCE (04/22/17) INSERTION OF INFUSION DEV INTO SUP VENA CAVA, PERC APPROACH (04/22/17) INSERTION OF SPACER INTO RIGHT KNEE JOINT, OPEN APPROACH (05/28/17) INTRODUCE ANTI-INFLAM IN PERIPH NRV, PLEXI, PERC (08/06/17) INTRODUCE LOCAL ANESTH IN PERIPH NRV, PLEXI, PERC (08/06/17) INTRODUCE OTH ANTI-INFECT IN CENTRAL VEIN, PERC (04/22/17) INTRODUCTION OF OTH ANTI-INFECT INTO JOINT, OPEN APPROACH (04/22/17) PLAIN RADIOGRAPHY OF RIGHT KNEE USING OTHER CONTRAST (05/28/17) RELEASE RIGHT KNEE JOINT, OPEN APPROACH (12/14/16) REMOVAL OF SPACER FROM RIGHT KNEE JOINT, OPEN APPROACH (08/06/17) REMOVAL OF SYNTH SUB FROM R KNEE JT, FEMORAL, OPEN APPROACH (08/06/17) REMOVAL OF SYNTH SUB FROM R KNEE JT, OPEN APPROACH (05/28/17) REMOVAL OF SYNTH SUB FROM R KNEE JT, TIBIAL, OPEN APPROACH (08/06/17) REPAIR RIGHT UPPER LEG TENDON, OPEN APPROACH (01/07/17) REPLACE OF R KNEE JT WITH SYNTH SUB, CEMENT, OPEN APPROACH (12/14/16) REPLACE OF R KNEE JT, FEMORAL WITH SYNTH SUB, OPEN APPROACH (08/06/17) REPLACE OF R KNEE JT, TIBIAL WITH SYNTH SUB, OPEN APPROACH (08/06/17) REPOSITION RIGHT TIBIA, OPEN APPROACH (12/14/16) REVISION OF SYNTH SUB IN R KNEE JT, TIBIAL, OPEN APPROACH (04/22/17) TRANSFUSE NONAUT RED BLOOD CELLS IN PERIPH VEIN, PERC (08/06/17) ULTRASONOGRAPHY OF SUPERIOR VENA CAVA, GUIDANCE (04/22/17) Family History: States: No Known Family Hx - Social History Hx Tobacco Use: No Hx Alcohol Use: No Hx Substance Use: No - Immunization History Hx Tetanus Toxoid Vaccination: No Hx Influenza Vaccination: No Hx Pneumococcal Vaccination: No Review Of Systems Constitutional: Negative for: Fever Musculoskeletal: Positive for: Leg Pain (right knee pain) Skin: Positive for: Other (right knee area warm to touch) Physical Exam - Physical Exam Appears: Well, Non-toxic, No Acute Distress Skin: Normal Color, Warm, Dry, Ecchymosis (mild ecchymosis to posterior right knee), Other (well healed surgical scar to anterior aspect of right knee) Head: Atraumatic, Normacephalic Oral Mucosa: Moist Cardiovascular: Rhythm Regular, No Murmur Respiratory: Normal Breath Sounds, No Rales, No Rhonchi, No Wheezing Gastrointestinal/Abdominal: Soft, No Tenderness Extremity: No Calf Tenderness, Other (good lower extremity pulses bilaterally ) Neurological/Psych: Oriented x3, Normal Speech, Normal Cognition ED Course And Treatment - Laboratory Results Result Diagrams: 11/05/17 17:52 11/05/17 17:52 O2 Sat by Pulse Oximetry: 98 Progress Note: Right knee XR, blood culture, venous duplex ordered. Toradol, zosyn, and vancomycin administered. Patient is to be admitted under Dr. Austin Lincoln who agrees to continue with plan and antibiotics. Disposition - Disposition Disposition: HOSPITALIZED Disposition Time: 18:30 Condition: STABLE - Clinical Impression Clinical Impression: Cellulitis, Swelling of right knee joint - Scribe Statement The provider has reviewed the documentation as recorded by the Scribe Tonia Kong All medical record entries made by the Sofíaibrom were at my direction and personally dictated by me. I have reviewed the chart and agree that the record accurately reflects my personal performance of the history, physical exam, medical decision making, and the department course for this patient. I have also personally directed, reviewed, and agree with the discharge instructions and disposition.
[2017-11-05] MEDS: Morphine 4 MG/ML VIAL IV PRN (22:08)
--- NOTE | 2017-11-05 23:39 | CP.PCM.HP ---
Present on Admission - Present on Admission Any Indicators Present on Admission: No Past Patient History - Infectious Disease Hx of Infectious Diseases: None - Tetanus Immunizations Tetanus Immunization: Unknown - Past Medical History & Family History Past Medical History?: Yes - Past Social History Smoking Status: Never Smoked - CARDIAC Hx Atrial Fibrillation: No Hx Cardia Arrhythmia: No Hx Congestive Heart Failure: No Hx Hypercholesterolemia: No Hx Hypertension: No - PULMONARY Hx Asthma: No Hx Bronchitis: No Hx Chronic Obstructive Pulmonary Disease (COPD): No Hx Emphysema: No - NEUROLOGICAL Hx Alzheimer's Disease: No Hx Dementia: No Hx Seizures: Yes Hx Transient Ischemic Attacks (TIA): Yes - HEENT Hx HEENT Problems: No - RENAL Hx Chronic Kidney Disease: No - ENDOCRINE/METABOLIC Hx Endocrine Disorders: No - HEMATOLOGICAL/ONCOLOGICAL Hx Human Immunodeficiency Virus (HIV): No - INTEGUMENTARY Hx Dermatological Problems: No - MUSCULOSKELETAL/RHEUMATOLOGICAL Hx Musculoskeletal Disorders: Yes Hx Falls: Yes - GASTROINTESTINAL Hx Gall Bladder Disease: Yes (farzana) Hx Gastritis: Yes - GENITOURINARY/GYNECOLOGICAL Hx Sexually Transmitted Disorders: No - PSYCHIATRIC Hx Anxiety: Yes Hx Bipolar Disorder: Yes Hx Depression: Yes Hx Schizophrenia: Yes Hx Substance Use: No - SURGICAL HISTORY Hx Cholecystectomy: Yes - ANESTHESIA Hx Anesthesia: Yes Hx Anesthesia Reactions: No Meds Allergies/Adverse Reactions: Allergies Allergy/AdvReac Type Severity Reaction Status Date / Time No Known Allergies Allergy Verified 08/06/17 06:43 Results - Vital Signs Recent Vital Signs: Last Vital Signs Temp 98.6 F 11/05/17 23:14 Pulse 79 11/05/17 23:14 Resp 18 11/05/17 23:14 BP 114/71 11/05/17 23:14 Pulse Ox 96 11/05/17 23:14 - Labs Result Diagrams: 11/05/17 17:52 11/05/17 17:52 Labs: Laboratory Results - last 24 hr 11/05/17 11/05/17 11/05/17 17:52 17:52 17:52 WBC 2.5 L RBC 4.06 Hgb 11.2 D Hct 34.4 MCV 84.7 D MCH 27.6 MCHC 32.6 L RDW 18.5 H Plt Count 119 L MPV 8.2 Neut % (Auto) 36.2 L Lymph % (Auto) 40.5 H [place] % (Auto) 18.0 H Eos % (Auto) 4.3 H Baso % (Auto) 1.0 Neut # (Auto) 0.9 L Lymph # (Auto) 1.0 [place] # (Auto) 0.5 Eos # (Auto) 0.1 Baso # (Auto) 0.0 PT 12.2 INR 1.1 APTT 38 H Sodium 143 Potassium 3.7 Chloride 105 Carbon Dioxide 27 Anion Gap 14 BUN 6 L Creatinine 0.6 L Est GFR ( Amer) > 60 Est GFR (Non-Af Amer) > 60 Random Glucose 106 H Uric Acid Calcium 9.0 Total Bilirubin 1.0 AST 101 H ALT 72 H Alkaline Phosphatase 183 H Total Protein 7.6 Albumin 4.0 Globulin 3.6 Albumin/Globulin Ratio 1.1 11/05/17 22:40 WBC RBC Hgb Hct MCV MCH MCHC RDW Plt Count MPV Neut % (Auto) Lymph % (Auto) [place] % (Auto) Eos % (Auto) Baso % (Auto) Neut # (Auto) Lymph # (Auto) [place] # (Auto) Eos # (Auto) Baso # (Auto) PT INR APTT Sodium Potassium Chloride Carbon Dioxide Anion Gap BUN Creatinine Est GFR ( Amer) Est GFR (Non-Af Amer) Random Glucose Uric Acid 4.6 Calcium Total Bilirubin AST ALT Alkaline Phosphatase Total Protein Albumin Globulin Albumin/Globulin Ratio
--- NOTE | 2017-11-06 09:27 | RAD ---
PROCEDURE: Right Knee Radiographs. HISTORY: right knee pain COMPARISON: None. FINDINGS: BONES: Re- demonstrated is right total knee arthroplasty. Hardware intact without evidence of loosening or infection. . The patella is located along the anterior inferior surface of the femoral component which may be secondary to slight flexed position. Clinical correlation recommended. JOINTS: Normal. No osteoarthritis. JOINT EFFUSION: . Small suprapatellar joint effusion OTHER FINDINGS: None. IMPRESSION: Re- demonstrated is right total knee arthroplasty. Hardware intact without evidence of loosening or infection. . The patella is located along the anterior inferior surface of the femoral component which may be secondary to slight flexed position. Clinical correlation recommended. .
[2017-11-06] MEDS ORDERED: PALIPERIDONE 3 MG PO SCH (10:00)
--- NOTE | 2017-11-06 10:19 | VASCLAB ---
PROCEDURE: Right Lower Extremity Venous Duplex Exam. HISTORY: Pain in limb, r/o DVT PRIORS: 07/17/2016, normal. TECHNIQUE: Right common femoral, femoral, popliteal and posterior tibial, peroneal and great saphenous veins were evaluated. Flow was assessed with color Doppler, compressibility, assessment of phasic flow and augmentation response. Report prepared by BIENVENIDO Dejesus FINDINGS: RIGHT: 1. Common Femoral Vein: 1.1. Compressibility - Fully compressible: Thrombus - None: Flow - Phasic: Augmentation -Normal: Reflux - None. 2. Femoral Vein: 2.1. Compressibility - Fully compressible: Thrombus - None: Flow - Phasic: Augmentation -Normal: Reflux - None. 3. Popliteal Vein: 3.1. Compressibility - Fully compressible: Thrombus - None: Flow - Phasic: Augmentation -Normal: Reflux - None. 4. Posterior Tibial Vein: 4.1. Compressibility - Fully compressible: Thrombus - None: Flow - Phasic: Augmentation -Normal: Reflux - None. 5. Peroneal Vein: 5.1. Compressibility - Fully compressible: Thrombus - None: Flow - Phasic: Augmentation -Normal: Reflux - None. 6. Great Saphenous Vein: 6.1. Compressibility - Fully compressible: Thrombus -None: Flow - Phasic: Augmentation - Normal: Reflux - Mild 1.72s OTHER FINDINGS: IMPRESSION: No evidence of deep or superficial vein thrombosis of the right lower extremity with excellent venous flow. Valvular incompetence noted fo the right great saphenous vein. Normal venous flow noted in the left common femoral vein.
[2017-11-06] MEDS: Enoxaparin 40 mg Syringe SC SCH (10:21)
[2017-11-06] MEDS: Morphine 4 MG/ML VIAL IV PRN ×2 (11:13→21:31)
--- NOTE | 2017-11-06 12:30 | CP.PCM.CON ---
History of Present Illness - History of Present Illness History of Present Illness: Patient is a 62 y/o female, with a Hx of multiple right knee surgeries, who presents to the ED with a complaint of right knee pain. Patient notes area is warm to the touch. Patient reports right knee is artificial knee. Admits to being able to ambulate but does experience some pain; denies any fever. No other physical complaints. right knee swollen warm tender but less since admission await ortho eval - Medical History PMH: Anxiety, Bipolar Disorder, Depression, Gastritis, Gall Bladder Disease ( farzana), Personality Disorder, Schizophrenia, Seizures, TIA Denies: Alzheimer's Disease, Asthma, Atrial Fibrillation, Bronchitis, Cardia Arrhythmia, CHF, COPD, Dementia, Emphysema, HIV, HTN, Hypercholesterolemia, Chronic Kidney Disease, Sexually Transmitted Disease Surgical History: Cholecystectomy, (x2) Other Surgeries: right knee replacement surgery Review of Systems - Constitutional Constitutional: As Per HPI - EENT Eyes: absent: As Per HPI, Blind Spots, Blurred Vision, Change in Vision, Decreased Night Vision, Diplopia, Discharge, Dry Eye, Exophthalmos, Floaters, Irritation, Itchy Eyes, Loss of Peripheral Vision, Pain, Photophobia, Requires Corrective Lenses, Sees Flashes, Spots in Vision, Tunnel Vision, Other Visual Disturbances, Loss of Vision, Other Ears: absent: As Per HPI, Decreased Hearing, Ear Discharge, Ear Pain, Tinnitus, Abnormal Hearing, Disequilibrium, Dizziness, Other Nose/Mouth/Throat: absent: As Per HPI, Epistaxis, Nasal Congestion, Nasal Discharge, Nasal Obstruction, Nasal Trauma, Nose Pain, Post Nasal Drip, Sinus Pain, Sinus Pressure, Bleeding Gums, Change in Voice, Dental Pain, Dry Mouth, Dysphagia, Halitosis, Hoarsness, Lip Swelling, Mouth Lesions, Mouth Pain, Odynophagia, Sore Throat, Throat Swelling, Tongue Swelling, Facial Pain, Neck Pain, Neck Mass, Other - Breasts Breasts: absent: As Per HPI, Change in Shape, Mass, Pain, Nipple Discharge, Nipple Inversion, Skin Changes, Swelling, Other - Cardiovascular Cardiovascular: absent: As Per HPI, Acrocyanosis, Chest Pain, Chest Pain at Rest , Chest Pain with Activity, Claudication, Diaphoresis, Dyspnea, Dyspnea on Exertion, Edema, Irregular Heart Rhythm, Pain Radiating to Arm/Neck/Jaw, Leg Edema, Leg Ulcers, Lightheadedness, Orthopnea, Palpitations, Paroxysmal Nocturnal Dyspnea, Pedal Edema, Radiating Pain, Rapid Heart Rate, Slow Heart Rate, Syncope, Other - Respiratory Respiratory: absent: As Per HPI, Cough, Dyspnea, Hemoptysis, Dyspnea on Exertion , Wheezing, Snoring, Stridor, Pain on Inspiration, Chest Congestion, Excessive Mucous Production, Change in Mucous Color, Pain with Coughing, Other - Gastrointestinal Gastrointestinal: absent: As Per HPI, Abdominal Pain, Belching, Bloating, Change in Bowel Habits, Change in Stool Character, Coffee Ground Emesis, Constipation, Cramping, Diarrhea, Dyspepsia, Dysphagia, Early Satiety, Excessive Flatus, Fecal Incontinence, Heartburn, Hematemesis, Hematochezia, Loose Stools, Melena, Nausea, Odynophagia, Temesmus, Vomiting, Other - Genitourinary Genitourinary: absent: As Per HPI, Change in Urinary Stream, Difficulty Urinating, Dysuria, Flank Pain, Hematuria, Pyuria, Nocturia, Urinary Incontinence, Urinary Frequency, Urinary Hesitance, Urinary Urgency, Voiding Freq/Small Amts, Freq UTI, Hx Renal/Bladder Calculi, Hx /Renal Surgery, Bladder Distension, Other - Reproductive: Female Reproductive:Female: absent: As Per HPI, Amenorrhea, Amenorrhea/ Control, Currently Menstual, Cycle <21 Days, Cycle >35 Days, Cycle Variable, Menses 1-7 Days, Menses >/= 8 Days, Menses Variable, Cycle > 4 Weeks Between, No Menses for 6 Months, Heavy Menses, Light Menses, Normal Menses, Spotting Between Cycles , S/P Hysterectomy, Menopausal, Post Menopausal, Premenarche, Abnormal Vaginal Bleeding, Dysmenorrhea, Dyspareunia, Genital Lesions, Genital Pruritis, Pelvic Pain, Prolapse Symptoms, Sexual Dysfunction, Vaginal Discharge, Vaginal Dryness , Vaginal Odor, Vaginal Pruritis, Other - Menstruation Menstruation: absent: As Per HPI, Amenorrhea, Amenorrhea/ Control, Currently Menstual, Cycle <21 Days, Cycle >35 Days, Cycle Variable, Menses 1-7 Days, Menses >/= 8 Days, Menses Variable, Cycle > 4 Weeks Between, No Menses for 6 Months, Heavy Menses, Light Menses, Normal Menses, Spotting Between Cycles , S/P Hysterectomy, Menopausal, Post Menopausal, Premenarche, Abnormal Vaginal Bleeding, Dysmenorrhea, Other - Musculoskeletal Musculoskeletal: As Per HPI - Integumentary Integumentary: As Per HPI - Neurological Neurological: absent: As Per HPI, Abnormal Gait, Abnormal Hearing, Abnormal Movements, Abnormal Speech, Behavioral Changes, Burning Sensations, Confusion, Convulsions, Disequilibrium, Dizziness, Numbness, Focal Weakness, Frequent Falls , Headaches, Lack of Coordination, Loss of Vision, Memory Loss, Paresthesias, Radicular Pain, Restless Legs, Sensory Deficit, Syncope, Tingling, Tremor, Vertigo, Weakness, Other Visual Disturbances, Other - Psychiatric Psychiatric: absent: As Per HPI, Abnormal Sleep Pattern, Anhedonia, Anxiety, Auditory Hallucinations, Behavioral Changes, Change in Appetite, Change in Libido, Confusion, Depression, Difficulty Concentrating, Hallucinations, Homicidal Ideation, Hopelessness, Irritability, Memory Loss, Mood Swings, Panic Attacks, Paranoia, Suicidal Ideation, Visual Hallucinations, Tactile Hallucinations, Other Past Patient History - Infectious Disease Hx of Infectious Diseases: None - Tetanus Immunizations Tetanus Immunization: Unknown - Past Medical History & Family History Past Medical History?: Yes - Past Social History Smoking Status: Never Smoked - CARDIAC Hx Atrial Fibrillation: No Hx Cardia Arrhythmia: No Hx Congestive Heart Failure: No Hx Hypercholesterolemia: No Hx Hypertension: No - PULMONARY Hx Asthma: No Hx Bronchitis: No Hx Chronic Obstructive Pulmonary Disease (COPD): No Hx Emphysema: No - NEUROLOGICAL Hx Alzheimer's Disease: No Hx Dementia: No Hx Seizures: Yes Hx Transient Ischemic Attacks (TIA): Yes - HEENT Hx HEENT Problems: No - RENAL Hx Chronic Kidney Disease: No - ENDOCRINE/METABOLIC Hx Endocrine Disorders: No - HEMATOLOGICAL/ONCOLOGICAL Hx Human Immunodeficiency Virus (HIV): No - INTEGUMENTARY Hx Dermatological Problems: No - MUSCULOSKELETAL/RHEUMATOLOGICAL Hx Musculoskeletal Disorders: Yes Hx Falls: Yes - GASTROINTESTINAL Hx Gall Bladder Disease: Yes (farzana) Hx Gastritis: Yes - GENITOURINARY/GYNECOLOGICAL Hx Sexually Transmitted Disorders: No - PSYCHIATRIC Hx Anxiety: Yes Hx Bipolar Disorder: Yes Hx Depression: Yes Hx Schizophrenia: Yes Hx Substance Use: No - SURGICAL HISTORY Hx Cholecystectomy: Yes - ANESTHESIA Hx Anesthesia: Yes Hx Anesthesia Reactions: No Meds Allergies/Adverse Reactions: Allergies Allergy/AdvReac Type Severity Reaction Status Date / Time No Known Allergies Allergy Verified 08/06/17 06:43 - Medications Medications: Current Medications Enoxaparin Sodium (Lovenox) 40 mg SC DAILY [facility] Last Admin: 11/06/17 10:21 Dose: 40 mg Famotidine (Pepcid) 20 mg PO [facility] Last Admin: 11/05/17 22:08 Dose: 20 mg Home Med (Paliperidone [Invega]) 3 mg PO BID [facility] Ceftriaxone Sodium 1 gm/ (Sodium Chloride) 100 mls @ 100 mls/hr IVPB DAILY [facility] PRN Reason: Protocol Last Admin: 11/06/17 10:21 Dose: 100 mls/hr Vancomycin/Sodium Chloride (Vancomycin 1 Gm/Ns 200 Ml) 1 gm in 200 mls @ 133 mls/hr IVPB Q24H [facility] PRN Reason: Protocol Stop: 11/11/17 20:01 Lamotrigine (Lamictal) 25 mg PO DAILY [facility] Last Admin: 11/06/17 10:21 Dose: 25 mg Morphine Sulfate (Morphine) 4 mg IV Q6 PRN PRN Reason: Pain, Mild (1-3) Last Admin: 11/06/17 11:13 Dose: 4 mg Trazodone HCl (Desyrel) 50 mg PO [facility] Last Admin: 11/05/17 22:08 Dose: 50 mg Physical Exam - Constitutional Appears: Non-toxic, Chronically Ill - Head Exam Head Exam: NORMOCEPHALIC - Eye Exam Eye Exam: PERRL. absent: Scleral icterus - ENT Exam ENT Exam: Mucous Membranes Dry, Normal External Ear Exam - Neck Exam Neck exam: Negative for: Lymphadenopathy - Respiratory Exam Respiratory Exam: Decreased Breath Sounds - Cardiovascular Exam Cardiovascular Exam: REGULAR RHYTHM - GI/Abdominal Exam GI & Abdominal Exam: Diminished Bowel Sounds, Soft. absent: Tenderness - Rectal Exam Rectal Exam: Deferred - Exam Exam: NORMAL INSPECTION - Extremities Exam Extremities exam: Positive for: calf tenderness, joint swelling, tenderness, pedal pulses present. Negative for: pedal edema - Back Exam Back exam: absent: CVA tenderness (L), CVA tenderness (R), paraspinal tenderness - Neurological Exam Neurological exam: Alert, CN II-XII Intact, Oriented x3, Reflexes Normal - Psychiatric Exam Psychiatric exam: Normal Mood - Skin Skin Exam: Dry Results - Vital Signs Recent Vital Signs: Last Vital Signs Temp 98.1 F 11/06/17 08:00 Pulse 69 11/06/17 08:00 Resp 20 11/06/17 08:00 BP 114/72 11/06/17 08:00 Pulse Ox 95 11/06/17 08:00 - Labs Result Diagrams: 11/05/17 17:52 11/05/17 17:52 Labs: Laboratory Results - last 24 hr 11/05/17 11/05/17 11/05/17 17:52 17:52 17:52 WBC 2.5 L RBC 4.06 Hgb 11.2 D Hct 34.4 MCV 84.7 D MCH 27.6 MCHC 32.6 L RDW 18.5 H Plt Count 119 L MPV 8.2 Neut % (Auto) 36.2 L Lymph % (Auto) 40.5 H [place] % (Auto) 18.0 H Eos % (Auto) 4.3 H Baso % (Auto) 1.0 Neut # (Auto) 0.9 L Lymph # (Auto) 1.0 [place] # (Auto) 0.5 Eos # (Auto) 0.1 Baso # (Auto) 0.0 PT 12.2 INR 1.1 APTT 38 H Sodium 143 Potassium 3.7 Chloride 105 Carbon Dioxide 27 Anion Gap 14 BUN 6 L Creatinine 0.6 L Est GFR ( Amer) > 60 Est GFR (Non-Af Amer) > 60 Random Glucose 106 H Lactic Acid Uric Acid Calcium 9.0 Total Bilirubin 1.0 AST 101 H ALT 72 H Alkaline Phosphatase 183 H Total Protein 7.6 Albumin 4.0 Globulin 3.6 Albumin/Globulin Ratio 1.1 11/05/17 11/06/17 22:40 08:22 WBC RBC Hgb Hct MCV MCH MCHC RDW Plt Count MPV Neut % (Auto) Lymph % (Auto) [place] % (Auto) Eos % (Auto) Baso % (Auto) Neut # (Auto) Lymph # (Auto) [place] # (Auto) Eos # (Auto) Baso # (Auto) PT INR APTT Sodium Potassium Chloride Carbon Dioxide Anion Gap BUN Creatinine Est GFR ( Amer) Est GFR (Non-Af Amer) Random Glucose Lactic Acid 1.1 Uric Acid 4.6 Calcium Total Bilirubin AST ALT Alkaline Phosphatase Total Protein Albumin Globulin Albumin/Globulin Ratio Assessment & Plan (1) Cellulitis Status: Acute (2) Swelling of right knee joint Status: Acute - Assessment and Plan (Free Text) Assessment: cont rx ortho eval
--- NOTE | 2017-11-06 17:14 | CP.PCM.PN ---
Subjective - Date & Time of Evaluation Date of Evaluation: 11/06/17 Time of Evaluation: 09:40 - Subjective Subjective: clinically same Objective - Vital Signs/Intake and Output Vital Signs (last 24 hours): Temp Pulse Resp BP Pulse Ox 98.1 F 86 20 162/83 H 99 11/06/17 16:00 11/06/17 16:00 11/06/17 16:00 11/06/17 16:00 11/06/17 16:00 Intake and Output: 11/06/17 11/06/17 06:59 18:59 Intake Total 50 750 Balance 50 750 - Medications Medications: Current Medications Enoxaparin Sodium (Lovenox) 40 mg SC DAILY [facility] Last Admin: 11/06/17 10:21 Dose: 40 mg Famotidine (Pepcid) 20 mg PO [facility] Last Admin: 11/05/17 22:08 Dose: 20 mg Home Med (Paliperidone [Invega]) 3 mg PO BID [facility] Ceftriaxone Sodium 1 gm/ (Sodium Chloride) 100 mls @ 100 mls/hr IVPB DAILY [facility] PRN Reason: Protocol Last Admin: 11/06/17 10:21 Dose: 100 mls/hr Vancomycin/Sodium Chloride (Vancomycin 1 Gm/Ns 200 Ml) 1 gm in 200 mls @ 133 mls/hr IVPB Q24H [facility] PRN Reason: Protocol Stop: 11/11/17 20:01 Lamotrigine (Lamictal) 25 mg PO DAILY [facility] Last Admin: 11/06/17 10:21 Dose: 25 mg Morphine Sulfate (Morphine) 4 mg IV Q6 PRN PRN Reason: Pain, Mild (1-3) Last Admin: 11/06/17 11:13 Dose: 4 mg Trazodone HCl (Desyrel) 50 mg PO [facility] Last Admin: 11/05/17 22:08 Dose: 50 mg - Labs Labs: 11/05/17 17:52 11/05/17 17:52 PT 12.2 SECONDS (9.7-12.2) 11/05/17 17:52 INR 1.1 11/05/17 17:52 APTT 38 SECONDS (21-34) H 11/05/17 17:52 - Constitutional Appears: Well - Head Exam Head Exam: ATRAUMATIC, NORMAL INSPECTION, NORMOCEPHALIC - Eye Exam Eye Exam: EOMI, Normal appearance, PERRL Pupil Exam: NORMAL ACCOMODATION, PERRL - ENT Exam ENT Exam: Mucous Membranes Moist, Normal Exam - Neck Exam Neck Exam: Full ROM, Normal Inspection. absent: Lymphadenopathy - Respiratory Exam Respiratory Exam: Decreased Breath Sounds - Cardiovascular Exam Cardiovascular Exam: REGULAR RHYTHM, +S1, +S2 - GI/Abdominal Exam GI & Abdominal Exam: Soft, Diminished Bowel Sounds - Rectal Exam Rectal Exam: Deferred
[2017-11-06] MEDS: Vancomycin 1 gm/NS 200 ml 1 GM/200 ML BAG IVPB SCH (19:53)
[2017-11-07] MEDS: Morphine 4 MG/ML VIAL IV PRN ×3 (06:28→22:40)
[2017-11-07 07:56] VITALS: RESP 20
--- NOTE | 2017-11-07 08:00 | CP.PCM.PN ---
Subjective - Date & Time of Evaluation Date of Evaluation: 11/07/17 Time of Evaluation: 07:20 - Subjective Subjective: PGY3 Resident - Medicine Progress Note This 62 y/o female with PMHx of R total knee replacement (Jul 2017), Schizofrenia, Bipolar Disorder, and hx of seizures - presents c/o right knee pain for several days. Patient notes area is warm to the touch. She states her R total knee replacement went well in July 2017 and she has been recovering well. She does ambulate, but experience mild pain. She was seen and examined at bedside this AM, reporting that since starting IV abx, the R calf/knee pain and swelling have mildly improved. She is currently in no acute distress. No overnight events. She denies fevers, chills, chest pain , SOB, abdominal pain, n/v, d/c, or any additional acute complaints. Objective - Vital Signs/Intake and Output Vital Signs (last 24 hours): Temp Pulse Resp BP Pulse Ox 98.5 F 68 20 122/73 97 11/07/17 07:55 11/07/17 07:55 11/07/17 07:55 11/07/17 07:55 11/07/17 07:55 - Medications Medications: Current Medications Enoxaparin Sodium (Lovenox) 40 mg SC DAILY [facility] Last Admin: 11/06/17 10:21 Dose: 40 mg Famotidine (Pepcid) 20 mg PO HS [facility] Last Admin: 11/06/17 21:30 Dose: 20 mg Home Med (Paliperidone [Invega]) 3 mg PO BID [facility] Ceftriaxone Sodium 1 gm/ (Sodium Chloride) 100 mls @ 100 mls/hr IVPB DAILY [facility] PRN Reason: Protocol Last Admin: 11/06/17 10:21 Dose: 100 mls/hr Vancomycin/Sodium Chloride (Vancomycin 1 Gm/Ns 200 Ml) 1 gm in 200 mls @ 133 mls/hr IVPB Q24H [facility] PRN Reason: Protocol Stop: 11/11/17 20:01 Last Admin: 11/06/17 19:53 Dose: 133 mls/hr Lamotrigine (Lamictal) 25 mg PO DAILY [facility] Last Admin: 11/06/17 10:21 Dose: 25 mg Morphine Sulfate (Morphine) 4 mg IV Q6 PRN PRN Reason: Pain, Mild (1-3) Last Admin: 11/07/17 06:28 Dose: 4 mg Trazodone HCl (Desyrel) 50 mg PO HS [facility] Last Admin: 11/06/17 21:31 Dose: 50 mg - Labs Labs: 11/05/17 17:52 11/05/17 17:52 PT 12.2 SECONDS (9.7-12.2) 11/05/17 17:52 INR 1.1 11/05/17 17:52 APTT 38 SECONDS (21-34) H 11/05/17 17:52 - Additional Findings Additional findings: - Constitutional Appears: Non-toxic, Chronically Ill - Head Exam Head Exam: NORMOCEPHALIC - Eye Exam Eye Exam: PERRL. absent: Scleral icterus - Respiratory Exam Respiratory Exam: NORMAL BREATHING PATTERN. absent: Rales, Wheezes - Cardiovascular Exam Cardiovascular Exam: REGULAR RHYTHM, S1, S2 - GI/Abdominal Exam GI & Abdominal Exam: Diminished Bowel Sounds, Soft. absent: Tenderness - Extremities Exam Extremities exam: Positive for: calf tenderness, joint swelling (R knee, mild), tenderness (R posterior calf), pedal pulses present. Negative for: pedal edema - Back Exam Back exam: absent: CVA tenderness (L), CVA tenderness (R), paraspinal tenderness - Neurological Exam Neurological exam: Alert, CN II-XII Intact, Oriented x3, Reflexes Normal - Psychiatric Exam Psychiatric exam: Normal Mood - Skin Skin Exam: Dry Assessment and Plan - Assessment and Plan (Free Text) Assessment: Cellulitis Status: Acute ID consult, Dr. Mcintyre, f/u recs Vancomycin 1 Gm IVPB Q24H [facility] Ceftriaxone Sodium 1 gm IVPB DAILY [facility]) 4 mg IV Q6 PRN R LE doppler negative. see full report Swelling of right knee joint Status: Acute patient is s/p R total knee replacement Jul 2017 (with Dr. Casarez) Consult placed to Dr. Casarez, f/u recs -orthopedically stable, patient instructed to f/u in 7-[address] Casarez office. -she states she has no transportation until insurance in November so that is why she has not recently followed up with him. knee xray negative. see full report. Schizofrenia / Bipolar Disorder Home med not on formulary: Paliperidone [Invega]) 3 mg PO BID [facility] Sustit[facility] with equivalent dosing: Risperdidone 2mg Q12H (Lamictal) 25 mg PO DAILY [facility] Hepatitis ID consult, Dr. Mcintyre, f/u recs -Serology reactive for hepatitis A IgM and hepatitis C Ab -Negative for Hep A Ab total, Hep BsAg, HepB Core IgM Ab HIV negative AST 196 / ALT 68 / AlkP 139 (downtrending) -pt states chronic hx of Hep C. Was evaluated by GI several years ago and was told she does not have to continue treatment. -Dr. Lincoln will refer patient to GI as outpatient regarding Hepatitis C Prophylaxis Lovenox) 40 mg SC DAILY [facility] Pepcid) 20 mg PO HS [facility] Sodium Chloride) 100 mls @ 100 mls/hr IVPB DAILY [facility] Desyrel) 50 mg PO HS [facility] Case discussed with attending. All medical management as per Dr. Austin Lincoln.
[2017-11-07 08:49] LABS: VANCOMYCIN TROUGH 9.7 ug/mL (5.0-10.0)
[2017-11-07 09:16] LABS: HIV 1&2 ANTIBODY NEGATIVE (NEGATIVE)
[2017-11-07 09:30] LABS: HEPATITIS B SURFACE AG Negative (NEGATIVE)
[2017-11-07] MEDS: Enoxaparin 40 mg Syringe SC SCH (09:33)
[2017-11-07 09:35] LABS: HEPATITIS B CORE AB NEGATIVE (NEGATIVE)
[2017-11-07 11:19] LABS: EOS # 0.2 K/uL (0.0-0.7); EOS % 7.2 % (0.0-4.0); HEMOGLOBIN 10.4 g/dL (11.0-16.0); LYMPH % 43.1 % (20.0-40.0); MEAN CELL VOLUME 84.8 fL (81.0-99.0); MEAN CORPUSCULAR HEMOGLOBIN 28.5 pg (27.0-31.0); MEAN CORPUSCULAR HGB CONC 33.6 g/dL (33.0-37.0); MEAN PLATELET VOLUME 8.1 fL (7.2-11.7); MONO # 0.5 K/uL (0.0-0.8); MONO % 20.9 % (0.0-10.0); NEUT # 0.6 K/uL (1.8-7.0); NEUT % 27.8 % (50.0-75.0); NRBC % 0.1 % (0.0-2.0); PLATELET COUNT 110 K/uL (130-400); RBC 3.67 Mil/uL (3.80-5.20); RED CELL DISTRIBUTION WIDTH 18.7 % (11.5-14.5); WHITE BLOOD COUNT 2.3 K/uL (4.8-10.8)
[2017-11-07 12:01] LABS: BANDS 1 % (0-2); NEUTROPHIL 29 % (50-75); REACTIVE LYMPHOCYTES 1 % (0-0); TOTAL CELLS COUNTED 100
[2017-11-07 12:02] LABS: ANISOCYTOSIS MODERATE; EOSINOPHIL 7 % (0-4); LYMPHOCYTE 45 % (20-40); MONOCYTE 17 % (0-10); PLATELET ESTIMATE SLIGHTLY DECREASED (NORMAL)
[2017-11-07 12:06] LABS: HYPOCHROMIC SLIGHT; OVALOCYTES SLIGHT
[2017-11-07 12:31] LABS: HEPATITIS A IGM REACTIVE (NEGATIVE)
[2017-11-07 12:32] LABS: ALBUMIN 3.3 g/dL (3.5-5.0); ALT/SGPT 68 U/L (9-52); AST/SGOT 96 U/L (14-36); BLOOD UREA NITROGEN 6 mg/dL (7-17); CALCIUM 8.3 mg/dl (8.6-10.4); GFR AFRICAN-AMERICAN > 60; GFR NON-AFRICAN AMERICAN > 60
[2017-11-07 12:34] LABS: HEPATITIS C ANTIBODY REACTIVE (NEGATIVE)
--- NOTE | 2017-11-07 14:28 | CP.PCM.CON ---
History of Present Illness - History of Present Illness History of Present Illness: Ortho consult Dr. Casarez 62F s/p revision right knee replacement (hinge) 08/09/2017. Patient had been progressing well until 4 days ago when she noticed increasing pain in her right knee, black and blue behind knee, and some redness in the front, so she came to ER> She denies any trauma or falls. She says her bed is high and sometimes she hits calf on side of bed. She says after the antibiotics were started it looks better. She has been walking more lately. She says she had PT today and tolerated well, no increased pain. Denies CP/SOB/dizziness/n/v/fevers/numbness/ tingling. Explant 06/07/2017 aspiration arthrogram 05/21/2017 I&D poly exchange 04/25/2017 wound dehiscence/closure, I&D, poly exchange 01/10/2017 TKR, open tx tib plat fx 12/18/2016 Review of Systems - Review of Systems All systems: reviewed and no additional remarkable complaints except - Musculoskeletal Musculoskeletal: As Per HPI - Integumentary Integumentary: As Per HPI, Unusual Bruising Past Patient History - Infectious Disease Hx of Infectious Diseases: None - Tetanus Immunizations Tetanus Immunization: Unknown - Past Medical History & Family History Past Medical History?: Yes Past Family History: Reviewed and not pertinent - Past Social History Smoking Status: Never Smoked - CARDIAC Hx Atrial Fibrillation: No Hx Cardia Arrhythmia: No Hx Congestive Heart Failure: No Hx Hypercholesterolemia: No Hx Hypertension: No - PULMONARY Hx Asthma: No Hx Bronchitis: No Hx Chronic Obstructive Pulmonary Disease (COPD): No Hx Emphysema: No - NEUROLOGICAL Hx Alzheimer's Disease: No Hx Dementia: No Hx Seizures: Yes Hx Transient Ischemic Attacks (TIA): Yes - HEENT Hx HEENT Problems: No - RENAL Hx Chronic Kidney Disease: No - ENDOCRINE/METABOLIC Hx Endocrine Disorders: No - HEMATOLOGICAL/ONCOLOGICAL Hx Human Immunodeficiency Virus (HIV): No - INTEGUMENTARY Hx Dermatological Problems: No - MUSCULOSKELETAL/RHEUMATOLOGICAL Hx Musculoskeletal Disorders: Yes Hx Falls: Yes - GASTROINTESTINAL Hx Gall Bladder Disease: Yes (farzana) Hx Gastritis: Yes - GENITOURINARY/GYNECOLOGICAL Hx Sexually Transmitted Disorders: No - PSYCHIATRIC Hx Anxiety: Yes Hx Bipolar Disorder: Yes Hx Depression: Yes Hx Schizophrenia: Yes Hx Substance Use: No - SURGICAL HISTORY Hx Cholecystectomy: Yes - ANESTHESIA Hx Anesthesia: Yes Hx Anesthesia Reactions: No Meds Allergies/Adverse Reactions: Allergies Allergy/AdvReac Type Severity Reaction Status Date / Time No Known Allergies Allergy Verified 08/06/17 06:43 - Medications Medications: Current Medications Enoxaparin Sodium (Lovenox) 40 mg SC DAILY [facility] Last Admin: 11/07/17 09:33 Dose: 40 mg Famotidine (Pepcid) 20 mg PO [facility] Last Admin: 11/06/17 21:30 Dose: 20 mg Ceftriaxone Sodium 1 gm/ (Sodium Chloride) 100 mls @ 100 mls/hr IVPB DAILY [facility] PRN Reason: Protocol Last Admin: 11/07/17 09:32 Dose: 100 mls/hr Vancomycin/Sodium Chloride (Vancomycin 1 Gm/Ns 200 Ml) 1 gm in 200 mls @ 133 mls/hr IVPB Q24H [facility] PRN Reason: Protocol Stop: 11/11/17 20:01 Last Admin: 11/06/17 19:53 Dose: 133 mls/hr Lamotrigine (Lamictal) 25 mg PO DAILY [facility] Last Admin: 11/07/17 09:33 Dose: 25 mg Morphine Sulfate (Morphine) 4 mg IV Q6 PRN PRN Reason: Pain, Mild (1-3) Last Admin: 11/07/17 06:28 Dose: 4 mg Risperidone (Risperdal Tab) 2 mg PO Q12H [facility] Last Admin: 11/07/17 12:43 Dose: 2 mg Trazodone HCl (Desyrel) 50 mg PO [facility] Last Admin: 11/06/17 21:31 Dose: 50 mg Physical Exam - Constitutional Appears: Well, No Acute Distress - Head Exam Head Exam: ATRAUMATIC - Respiratory Exam Respiratory Exam: NORMAL BREATHING PATTERN - Cardiovascular Exam Additional comments: +DP/PT pulses - Expanded Lower Extremities Exam Right Knee exam: full knee extension (0-100 degrees, without pain, incision intact, no erythema, not warm, no obvious effusion, no palpable popliteal cyst, calf minimally tender, soft, neg homans) Neuro vacular tendon exam: no vascular compromise (sensation intact) - Skin Skin Exam: Dry, Intact, Warm Additional comments: ecchymosis from right pop fossa down 1/2 lower leg, skin intact incision well healed, intact, no erythema, dry Results - Vital Signs Recent Vital Signs: Last Vital Signs Temp 98.5 F 11/07/17 07:55 Pulse 68 11/07/17 10:36 Resp 20 11/07/17 07:55 BP 122/73 11/07/17 07:55 Pulse Ox 97 11/07/17 10:36 - Labs Result Diagrams: 11/07/17 11:09 11/07/17 11:09 Labs: Laboratory Results - last 24 hr 11/07/17 11/07/17 11/07/17 08:01 08:01 08:01 WBC RBC Hgb Hct MCV MCH MCHC RDW Plt Count MPV Neut % (Auto) Lymph % (Auto) [place] % (Auto) Eos % (Auto) Baso % (Auto) Neut # (Auto) Lymph # (Auto) [place] # (Auto) Eos # (Auto) Baso # (Auto) Neutrophils % (Manual) Band Neutrophils % Lymphocytes % (Manual) Reactive Lymphs % Monocytes % (Manual) Eosinophils % (Manual) Platelet Estimate Hypochromasia (manual) Anisocytosis (manual) Ovalocytes Sodium Potassium Chloride Carbon Dioxide Anion Gap BUN Creatinine Est GFR ( Amer) Est GFR (Non-Af Amer) Random Glucose Calcium Phosphorus Magnesium Total Bilirubin AST ALT Alkaline Phosphatase Total Protein Albumin Globulin Albumin/Globulin Ratio Vancomycin Trough 9.7 Hepatitis A IgM Ab Reactive Hepatitis A Ab Total Antibody negative Hep Bs Antigen Negative Hep B Core IgM Ab Negative Hepatitis C Antibody Reactive HIV 1&2 Antibody Screen Negative 11/07/17 11/07/17 11:09 11:09 WBC 2.3 L RBC 3.67 L Hgb 10.4 L Hct 31.1 L MCV 84.8 MCH 28.5 MCHC 33.6 RDW 18.7 H Plt Count 110 L MPV 8.1 Neut % (Auto) 27.8 L Lymph % (Auto) 43.1 H [place] % (Auto) 20.9 H Eos % (Auto) 7.2 H Baso % (Auto) 1.0 Neut # (Auto) 0.6 L Lymph # (Auto) 1.0 [place] # (Auto) 0.5 Eos # (Auto) 0.2 Baso # (Auto) 0.0 Neutrophils % (Manual) 29 L Band Neutrophils % 1 Lymphocytes % (Manual) 45 H Reactive Lymphs % 1 H Monocytes % (Manual) 17 H Eosinophils % (Manual) 7 H Platelet Estimate Slightly decreased L Hypochromasia (manual) Slight Anisocytosis (manual) Moderate Ovalocytes Slight Sodium 140 Potassium 3.7 Chloride 105 Carbon Dioxide 28 Anion Gap 12 BUN 6 L Creatinine 0.5 L Est GFR ( Amer) > 60 Est GFR (Non-Af Amer) > 60 Random Glucose 117 H Calcium 8.3 L Phosphorus 3.7 Magnesium 1.8 Total Bilirubin 0.7 AST 96 H ALT 68 H Alkaline Phosphatase 139 H D Total Protein 6.5 Albumin 3.3 L Globulin 3.2 Albumin/Globulin Ratio 1.0 Vancomycin Trough Hepatitis A IgM Ab Hepatitis A Ab Total Hep Bs Antigen Hep B Core IgM Ab Hepatitis C Antibody HIV 1&2 Antibody Screen - Impressions Impression: dopplers negative for DVT RLE no noted bursa/collection xrays equivocal to post operative imaging, acceptable, no change Patient Name / ID : CASI GEORGE E / [id number] Exam Date : 11/05/2017 17:48:04 ( Approved ) Study Comment : Sex / Age : F / 62Y Creator : Anish Gan MD Dictator : Anish Gan MD Toll Service Observer : Land Title Examiner : Anish Gan MD Approver2 : Report Date : 11/06/2017 09:25:41 My Comment : PROCEDURE: Right Knee Radiographs. HISTORY: right knee pain COMPARISON: None. FINDINGS: BONES: Re- demonstrated is right total knee arthroplasty. Hardware intact without evidence of loosening or infection. . The patella is located along the anterior inferior surface of the femoral component which may be secondary to slight flexed position. Clinical correlation recommended. JOINTS: Normal. No osteoarthritis. JOINT EFFUSION: . Small suprapatellar joint effusion OTHER FINDINGS: None. IMPRESSION: Re- demonstrated is right total knee arthroplasty. Hardware intact without evidence of loosening or infection. . The patella is located along the anterior inferior surface of the femoral component which may be secondary to slight flexed position. Clinical correlation recommended. . Assessment & Plan (1) Status post revision of total replacement of right knee Assessment and Plan: no clinical suspicion of infection knee appearance benign ecchymosis ? ruptured popliteal cyst? dopplers neg PT VTE proph orthopedically stable, patient instructed to f/u in 7-[address] Casarez office , she says she has no transportation until insurance in November so that is why she has not recently followed up with him. Stressed importance of f/u with Dr. garsia regularly d/w Dr. Casarez, agrees with above Status: Acute (2) Vitamin D deficiency Assessment and Plan: 25.3 in july, not on supp will recheck Status: Acute
--- NOTE | 2017-11-07 18:04 | CP.PCM.PN ---
Subjective - Date & Time of Evaluation Date of Evaluation: 11/07/17 Time of Evaluation: 09:00 - Subjective Subjective: hep A IG M + Hep C also + Objective - Vital Signs/Intake and Output Vital Signs (last 24 hours): Temp Pulse Resp BP Pulse Ox 98.2 F 70 20 117/76 98 11/07/17 16:00 11/07/17 16:00 11/07/17 16:00 11/07/17 16:00 11/07/17 16:00 Intake and Output: 11/07/17 11/07/17 06:59 18:59 Intake Total 900 Balance 900 - Medications Medications: Current Medications Enoxaparin Sodium (Lovenox) 40 mg SC DAILY [facility] Last Admin: 11/07/17 09:33 Dose: 40 mg Famotidine (Pepcid) 20 mg PO HS [facility] Last Admin: 11/06/17 21:30 Dose: 20 mg Ceftriaxone Sodium 1 gm/ (Sodium Chloride) 100 mls @ 100 mls/hr IVPB DAILY [facility] PRN Reason: Protocol Last Admin: 11/07/17 09:32 Dose: 100 mls/hr Vancomycin/Sodium Chloride (Vancomycin 1 Gm/Ns 200 Ml) 1 gm in 200 mls @ 133 mls/hr IVPB Q24H [facility] PRN Reason: Protocol Stop: 11/11/17 20:01 Last Admin: 11/06/17 19:53 Dose: 133 mls/hr Lamotrigine (Lamictal) 25 mg PO DAILY [facility] Last Admin: 11/07/17 09:33 Dose: 25 mg Morphine Sulfate (Morphine) 4 mg IV Q6 PRN PRN Reason: Pain, Mild (1-3) Last Admin: 11/07/17 16:08 Dose: 4 mg Risperidone (Risperdal Tab) 2 mg PO Q12H [facility] Last Admin: 11/07/17 12:43 Dose: 2 mg Trazodone HCl (Desyrel) 50 mg PO HS [facility] Last Admin: 11/06/17 21:31 Dose: 50 mg - Labs Labs: 11/07/17 11:09 11/07/17 11:09 PT 12.2 SECONDS (9.7-12.2) 11/05/17 17:52 INR 1.1 11/05/17 17:52 APTT 38 SECONDS (21-34) H 11/05/17 17:52 - Constitutional Appears: Non-toxic, Chronically Ill - Head Exam Head Exam: NORMOCEPHALIC - Eye Exam Eye Exam: absent: Scleral icterus Pupil Exam: NORMAL ACCOMODATION - ENT Exam ENT Exam: Mucous Membranes Dry - Neck Exam Neck Exam: absent: Lymphadenopathy - Respiratory Exam Respiratory Exam: Decreased Breath Sounds - Cardiovascular Exam Cardiovascular Exam: REGULAR RHYTHM - GI/Abdominal Exam GI & Abdominal Exam: Distended, Soft - Rectal Exam Rectal Exam: Deferred - Exam Exam: NORMAL INSPECTION - Extremities Exam Extremities Exam: absent: Pedal Edema - Back Exam Back Exam: absent: CVA tenderness (L), CVA tenderness (R) Assessment and Plan (1) Cellulitis Status: Acute (2) Swelling of right knee joint Status: Acute - Assessment and Plan (Free Text) Assessment: cont iv rx await ortho eval awit cultures contact tracing if possible unoiversqal precautions follow up Hep C testing for genotype and PCR
[2017-11-07] MEDS: Vancomycin 1 gm/NS 200 ml 1 GM/200 ML BAG IVPB SCH (19:48)
--- NOTE | 2017-11-08 07:16 | CP.PCM.PN ---
Subjective - Date & Time of Evaluation Date of Evaluation: 11/08/17 Time of Evaluation: 08:00 - Subjective Subjective: PGY3 Resident - Medicine Progress Note for Dr. Austin Lincoln: Patient was seen and examined at bedside this morning. She is reporting that the R calf/knee pain and swelling have mildly improved. She is currently in no acute distress. No overnight events. She denies fevers, chills, chest pain, SOB , abdominal pain, n/v, d/c, or any additional acute complaints. Objective - Vital Signs/Intake and Output Vital Signs (last 24 hours): Temp Pulse Resp BP Pulse Ox 98.5 F 80 20 114/70 96 11/07/17 23:17 11/07/17 23:17 11/07/17 23:17 11/07/17 23:17 11/07/17 23:17 Intake and Output: 11/08/17 11/08/17 06:59 18:59 Intake Total 150 Balance 150 - Medications Medications: Current Medications Enoxaparin Sodium (Lovenox) 40 mg SC DAILY [facility] Last Admin: 11/07/17 09:33 Dose: 40 mg Famotidine (Pepcid) 20 mg PO HS [facility] Last Admin: 11/07/17 21:47 Dose: 20 mg Ceftriaxone Sodium 1 gm/ (Sodium Chloride) 100 mls @ 100 mls/hr IVPB DAILY [facility] PRN Reason: Protocol Last Admin: 11/07/17 09:32 Dose: 100 mls/hr Vancomycin/Sodium Chloride (Vancomycin 1 Gm/Ns 200 Ml) 1 gm in 200 mls @ 133 mls/hr IVPB Q24H [facility] PRN Reason: Protocol Stop: 11/11/17 20:01 Last Admin: 11/07/17 19:48 Dose: 133 mls/hr Lamotrigine (Lamictal) 25 mg PO DAILY [facility] Last Admin: 11/07/17 09:33 Dose: 25 mg Morphine Sulfate (Morphine) 4 mg IV Q6 PRN PRN Reason: Pain, Mild (1-3) Last Admin: 11/07/17 22:40 Dose: 4 mg Risperidone (Risperdal Tab) 2 mg PO Q12 [facility] Last Admin: 11/07/17 21:48 Dose: 2 mg Trazodone HCl (Desyrel) 50 mg PO HS [facility] Last Admin: 11/07/17 21:48 Dose: 50 mg - Labs Labs: 11/07/17 11:09 11/07/17 11:09 PT 12.2 SECONDS (9.7-12.2) 11/05/17 17:52 INR 1.1 11/05/17 17:52 APTT 38 SECONDS (21-34) H 11/05/17 17:52 - Constitutional Appears: Non-toxic, No Acute Distress - Head Exam Head Exam: NORMAL INSPECTION - Eye Exam Eye Exam: EOMI - ENT Exam ENT Exam: Mucous Membranes Moist - Respiratory Exam Respiratory Exam: Clear to Ausculation Bilateral, NORMAL BREATHING PATTERN. absent: Wheezes, Respiratory Distress - Cardiovascular Exam Cardiovascular Exam: REGULAR RHYTHM, +S1, +S2 - GI/Abdominal Exam GI & Abdominal Exam: Soft, Normal Bowel Sounds. absent: Distended, Firm, Guarding, Tenderness - Extremities Exam Extremities Exam: Normal Inspection - Back Exam Back Exam: NORMAL INSPECTION - Neurological Exam Neurological Exam: Alert, Awake, Oriented x3 - Psychiatric Exam Psychiatric exam: Normal Affect, Normal Mood Assessment and Plan - Assessment and Plan (Free Text) Assessment: Cellulitis Status: Acute ID consult, Dr. Mcintyre, f/u recs Vancomycin 1 Gm IVPB Q24H [facility] Ceftriaxone Sodium 1 gm IVPB DAILY Morphine) 4 mg IV Q6 PRN R LE doppler negative. see full report Blood culture 11/05 gram + kimberlyn in one bottle repeat blood cultures today 11/08 - Dr. Austin Lincoln will follow up outpatient Neutropenia WBC 1.9 hx. neutropenia likely secondary to Hepatitis on abx Nuetropenic precautions Swelling of right knee joint Status: Acute patient is s/p R total knee replacement Jul 2017 (with Dr. Casarez) Consult placed to Dr. Casarez, f/u recs -orthopedically stable, patient instructed to f/u in 7-[address] Casarez office. -she states she has no transportation until insurance in November so that is why she has not recently followed up with him. knee xray negative. see full report. Schizofrenia / Bipolar Disorder Home med not on formulary: Paliperidone [Invega]) 3 mg PO BID [facility] Sustitute with equivalent dosing: Risperdidone 2mg Q12H (Lamictal) 25 mg PO DAILY [facility] Hepatitis ID consult, Dr. Mcintyre, f/u recs -Serology reactive for hepatitis A IgM and hepatitis C Ab -Negative for Hep A Ab total, Hep BsAg, HepB Core IgM Ab HIV negative w/transaminitis -pt states chronic hx of Hep C. Was evaluated by GI several years ago and was told she does not have to continue treatment. -Dr. Lincoln will refer patient to GI as outpatient regarding Hepatitis C Prophylaxis Lovenox) 40 mg SC DAILY [facility] Pepcid) 20 mg PO HS [facility] Sodium Chloride) 100 mls @ 100 mls/hr IVPB DAILY [facility] Desyrel) 50 mg PO HS [facility] Dispo -> Likely DC tomorrow after receiving abx. Case discussed with attending. All medical management as per Dr. Austin Lincoln.
[2017-11-08 08:07] LABS: EOS # 0.1 K/uL (0.0-0.7); EOS % 7.6 % (0.0-4.0); HEMOGLOBIN 11.1 g/dL (11.0-16.0); LYMPH # 0.9 K/uL (1.0-4.3); LYMPH % 45.1 % (20.0-40.0); MEAN CELL VOLUME 85.4 fL (81.0-99.0); MEAN CORPUSCULAR HEMOGLOBIN 28.5 pg (27.0-31.0); MEAN CORPUSCULAR HGB CONC 33.3 g/dL (33.0-37.0); MEAN PLATELET VOLUME 8.2 fL (7.2-11.7); MONO # 0.4 K/uL (0.0-0.8); NEUT # 0.5 K/uL (1.8-7.0); NEUT % 25.3 % (50.0-75.0); NRBC % 0.2 % (0.0-2.0); PLATELET COUNT 115 K/uL (130-400); RBC 3.88 Mil/uL (3.80-5.20); RED CELL DISTRIBUTION WIDTH 18.3 % (11.5-14.5)
[2017-11-08 08:19] LABS: WHITE BLOOD COUNT 1.9 K/uL (4.8-10.8)
[2017-11-08 09:05] LABS: ALBUMIN 3.5 g/dL (3.5-5.0); BLOOD UREA NITROGEN 8 mg/dL (7-17); CALCIUM 8.7 mg/dl (8.6-10.4); GFR AFRICAN-AMERICAN > 60; GFR NON-AFRICAN AMERICAN > 60
[2017-11-08 09:06] LABS: ALT/SGPT 77 U/L (9-52); AST/SGOT 114 U/L (14-36)
[2017-11-08 10:30] LABS: ANISOCYTOSIS SLIGHT; EOSINOPHIL 5 % (0-4); HYPOCHROMIC SLIGHT; LYMPHOCYTE 47 % (20-40); MONOCYTE 16 % (0-10); NEUTROPHIL 32 % (50-75); PLATELET ESTIMATE SLIGHTLY DECREASED (NORMAL); POLYCHROMIC SLIGHT; TOTAL CELLS COUNTED 100
[2017-11-08] MEDS: Enoxaparin 40 mg Syringe SC SCH (11:04)
[2017-11-08] MEDS: Morphine 4 MG/ML VIAL IV PRN ×2 (11:06→21:24)
--- NOTE | 2017-11-08 18:39 | CP.PCM.PN ---
Subjective - Date & Time of Evaluation Date of Evaluation: 11/08/17 Time of Evaluation: 07:40 - Subjective Subjective: clinically same Objective - Vital Signs/Intake and Output Vital Signs (last 24 hours): Temp Pulse Resp BP Pulse Ox 98.2 F 60 20 147/74 100 11/08/17 16:00 11/08/17 16:00 11/08/17 16:00 11/08/17 16:00 11/08/17 16:00 Intake and Output: 11/08/17 11/08/17 06:59 18:59 Intake Total 150 550 Balance 150 550 - Medications Medications: Current Medications Enoxaparin Sodium (Lovenox) 40 mg SC DAILY [facility] Last Admin: 11/08/17 11:04 Dose: 40 mg Famotidine (Pepcid) 20 mg PO HS [facility] Last Admin: 11/07/17 21:47 Dose: 20 mg Ceftriaxone Sodium 1 gm/ (Sodium Chloride) 100 mls @ 100 mls/hr IVPB DAILY [facility] PRN Reason: Protocol Last Admin: 11/08/17 11:05 Dose: 100 mls/hr Vancomycin/Sodium Chloride (Vancomycin 1 Gm/Ns 200 Ml) 1 gm in 200 mls @ 133 mls/hr IVPB Q24H [facility] PRN Reason: Protocol Stop: 11/11/17 20:01 Last Admin: 11/07/17 19:48 Dose: 133 mls/hr Lamotrigine (Lamictal) 25 mg PO DAILY [facility] Last Admin: 11/08/17 11:04 Dose: 25 mg Morphine Sulfate (Morphine) 4 mg IV Q6 PRN PRN Reason: Pain, Mild (1-3) Last Admin: 11/08/17 11:06 Dose: 4 mg Risperidone (Risperdal Tab) 2 mg PO Q12 [facility] Last Admin: 11/08/17 11:04 Dose: 2 mg Trazodone HCl (Desyrel) 50 mg PO HS [facility] Last Admin: 11/07/17 21:48 Dose: 50 mg - Labs Labs: 11/08/17 07:41 11/08/17 07:41 PT 12.2 SECONDS (9.7-12.2) 11/05/17 17:52 INR 1.1 11/05/17 17:52 APTT 38 SECONDS (21-34) H 11/05/17 17:52 - Constitutional Appears: Well - Head Exam Head Exam: ATRAUMATIC, NORMAL INSPECTION, NORMOCEPHALIC - Eye Exam Eye Exam: EOMI, Normal appearance, PERRL Pupil Exam: NORMAL ACCOMODATION, PERRL - ENT Exam ENT Exam: Mucous Membranes Moist, Normal Exam - Neck Exam Neck Exam: Full ROM, Normal Inspection. absent: Lymphadenopathy - Respiratory Exam Respiratory Exam: Decreased Breath Sounds - Cardiovascular Exam Cardiovascular Exam: REGULAR RHYTHM, +S1, +S2 - GI/Abdominal Exam GI & Abdominal Exam: Soft, Diminished Bowel Sounds - Rectal Exam Rectal Exam: Deferred
--- NOTE | 2017-11-08 19:09 | CP.PCM.PN ---
Subjective - Date & Time of Evaluation Date of Evaluation: 11/08/17 Time of Evaluation: 08:00 - Subjective Subjective: blood shows gram + rods await ID and sensi Objective - Vital Signs/Intake and Output Vital Signs (last 24 hours): Temp Pulse Resp BP Pulse Ox 98.2 F 60 20 147/74 100 11/08/17 16:00 11/08/17 16:00 11/08/17 16:00 11/08/17 16:00 11/08/17 16:00 Intake and Output: 11/08/17 11/09/17 18:59 06:59 Intake Total 550 Balance 550 - Medications Medications: Current Medications Enoxaparin Sodium (Lovenox) 40 mg SC DAILY [facility] Last Admin: 11/08/17 11:04 Dose: 40 mg Famotidine (Pepcid) 20 mg PO HS [facility] Last Admin: 11/07/17 21:47 Dose: 20 mg Ceftriaxone Sodium 1 gm/ (Sodium Chloride) 100 mls @ 100 mls/hr IVPB DAILY [facility] PRN Reason: Protocol Last Admin: 11/08/17 11:05 Dose: 100 mls/hr Vancomycin/Sodium Chloride (Vancomycin 1 Gm/Ns 200 Ml) 1 gm in 200 mls @ 133 mls/hr IVPB Q24H [facility] PRN Reason: Protocol Stop: 11/11/17 20:01 Last Admin: 11/07/17 19:48 Dose: 133 mls/hr Lamotrigine (Lamictal) 25 mg PO DAILY [facility] Last Admin: 11/08/17 11:04 Dose: 25 mg Morphine Sulfate (Morphine) 4 mg IV Q6 PRN PRN Reason: Pain, Mild (1-3) Last Admin: 11/08/17 11:06 Dose: 4 mg Risperidone (Risperdal Tab) 2 mg PO Q12 [facility] Last Admin: 11/08/17 11:04 Dose: 2 mg Trazodone HCl (Desyrel) 50 mg PO HS [facility] Last Admin: 11/07/17 21:48 Dose: 50 mg - Labs Labs: 11/08/17 07:41 11/08/17 07:41 PT 12.2 SECONDS (9.7-12.2) 11/05/17 17:52 INR 1.1 11/05/17 17:52 APTT 38 SECONDS (21-34) H 11/05/17 17:52 - Constitutional Appears: Non-toxic, Chronically Ill - Head Exam Head Exam: NORMOCEPHALIC - Eye Exam Eye Exam: absent: Scleral icterus - ENT Exam ENT Exam: Mucous Membranes Dry - Neck Exam Neck Exam: absent: Lymphadenopathy - Respiratory Exam Respiratory Exam: Decreased Breath Sounds - Cardiovascular Exam Cardiovascular Exam: REGULAR RHYTHM - GI/Abdominal Exam GI & Abdominal Exam: Soft. absent: Tenderness - Rectal Exam Rectal Exam: Deferred Assessment and Plan (1) Cellulitis Status: Acute (2) Swelling of right knee joint Status: Acute - Assessment and Plan (Free Text) Assessment: consider Ortho eval right knee await culture report
[2017-11-08] MEDS: Vancomycin 1 gm/NS 200 ml 1 GM/200 ML BAG IVPB SCH (20:33)
[2017-11-09 07:31] LABS: EOS # 0.1 K/uL (0.0-0.7); EOS % 8.3 % (0.0-4.0); HEMOGLOBIN 10.6 g/dL (11.0-16.0); LYMPH # 0.8 K/uL (1.0-4.3); LYMPH % 43.4 % (20.0-40.0); MEAN CORPUSCULAR HEMOGLOBIN 28.6 pg (27.0-31.0); MEAN CORPUSCULAR HGB CONC 33.7 g/dL (33.0-37.0); MEAN PLATELET VOLUME 8.5 fL (7.2-11.7); MONO # 0.4 K/uL (0.0-0.8); MONO % 20.3 % (0.0-10.0); NEUT # 0.5 K/uL (1.8-7.0); NRBC % 0.1 % (0.0-2.0); PLATELET COUNT 105 K/uL (130-400); RBC 3.68 Mil/uL (3.80-5.20); RED CELL DISTRIBUTION WIDTH 18.6 % (11.5-14.5)
[2017-11-09 07:35] LABS: ALBUMIN 3.2 g/dL (3.5-5.0); ALT/SGPT 77 U/L (9-52); AST/SGOT 106 U/L (14-36); BLOOD UREA NITROGEN 6 mg/dL (7-17); CALCIUM 8.4 mg/dl (8.6-10.4); GFR AFRICAN-AMERICAN > 60; GFR NON-AFRICAN AMERICAN > 60
[2017-11-09 07:36] LABS: WHITE BLOOD COUNT 1.8 K/uL (4.8-10.8)
[2017-11-09 08:40] LABS: BASOPHIL 4 % (0-2); EOSINOPHIL 2 % (0-4); LYMPHOCYTE 42 % (20-40); TOTAL CELLS COUNTED 50
[2017-11-09 08:42] LABS: MONOCYTE 18 % (0-10); NEUTROPHIL 34 % (50-75)
[2017-11-09 08:43] LABS: HYPOCHROMIC SLIGHT; OVALOCYTES SLIGHT; PLATELET ESTIMATE SLIGHTLY DECREASED (NORMAL)
--- NOTE | 2017-11-09 10:01 | CP.PCM.PN ---
Subjective - Date & Time of Evaluation Date of Evaluation: 11/09/17 Time of Evaluation: 10:01 - Subjective Subjective: Medicine progress note for Dr. Lincoln's service Patient seen and examined. Patient reports decreased pain in right knee. She states knee is much improved as compared to prior to admission. Patient states she will follow up with Dr. Casarez in office once she has her transportation services set up through insurance. Objective - Vital Signs/Intake and Output Vital Signs (last 24 hours): Temp Pulse Resp BP Pulse Ox 98.1 F 82 20 108/67 97 11/09/17 08:00 11/09/17 08:00 11/09/17 08:00 11/09/17 08:00 11/09/17 08:00 Intake and Output: 11/09/17 11/09/17 06:59 18:59 Intake Total 1100 Balance 1100 - Medications Medications: Current Medications Enoxaparin Sodium (Lovenox) 40 mg SC DAILY [facility] Last Admin: 11/08/17 11:04 Dose: 40 mg Famotidine (Pepcid) 20 mg PO HS [facility] Last Admin: 11/08/17 21:23 Dose: 20 mg Ceftriaxone Sodium 1 gm/ (Sodium Chloride) 100 mls @ 100 mls/hr IVPB DAILY [facility] PRN Reason: Protocol Last Admin: 11/08/17 11:05 Dose: 100 mls/hr Vancomycin/Sodium Chloride (Vancomycin 1 Gm/Ns 200 Ml) 1 gm in 200 mls @ 133 mls/hr IVPB Q24H [facility] PRN Reason: Protocol Stop: 11/11/17 20:01 Last Admin: 11/08/17 20:33 Dose: 133 mls/hr Lamotrigine (Lamictal) 25 mg PO DAILY [facility] Last Admin: 11/08/17 11:04 Dose: 25 mg Morphine Sulfate (Morphine) 4 mg IV Q6 PRN PRN Reason: Pain, Mild (1-3) Last Admin: 11/08/17 21:24 Dose: 4 mg Risperidone (Risperdal Tab) 2 mg PO Q12 [facility] Last Admin: 11/08/17 21:23 Dose: 2 mg Trazodone HCl (Desyrel) 50 mg PO HS [facility] Last Admin: 11/08/17 21:23 Dose: 50 mg - Labs Labs: 11/09/17 07:09 11/09/17 07:09 PT 12.2 SECONDS (9.7-12.2) 11/05/17 17:52 INR 1.1 11/05/17 17:52 APTT 38 SECONDS (21-34) H 11/05/17 17:52 - Constitutional Appears: No Acute Distress - Head Exam Head Exam: ATRAUMATIC, NORMOCEPHALIC - Eye Exam Eye Exam: EOMI - ENT Exam ENT Exam: Mucous Membranes Moist - Respiratory Exam Respiratory Exam: Clear to Ausculation Bilateral - Cardiovascular Exam Cardiovascular Exam: +S1, +S2 - GI/Abdominal Exam GI & Abdominal Exam: Soft, Normal Bowel Sounds. absent: Tenderness - Extremities Exam Additional comments: right knee with well-healed incision overlaying patella, no effusion, no erythema, mild warmth to touch - Neurological Exam Neurological Exam: Alert, Awake - Skin Skin Exam: Warm Assessment and Plan - Assessment and Plan (Free Text) Assessment: Cellulitis Status: Acute ID consult, Dr. Mcintyre, pt will need one week IV antibiotics Vancomycin 1 Gm IVPB Q24H [facility] Ceftriaxone Sodium 1 gm IVPB DAILY Morphine) 4 mg IV Q6 PRN R LE doppler negative. see full report Blood culture 11/05 + for corynebacterium repeat blood cultures 11/08 - Dr. Austin Lincoln will follow up outpatient Neutropenia WBC 1.8 hx. neutropenia likely secondary to Hepatitis on abx Nuetropenic precautions Swelling of right knee joint Status: Acute patient is s/p R total knee replacement Jul 2017 (with Dr. Casarez) Consult placed to Dr. Casarez, f/u recs -pending repeat blood culture, consider joint aspiration/ arthrogram in OR -orthopedically stable, patient instructed to f/u in 7-[address] Casarez office. -she states she has no transportation until insurance in November so that is why she has not recently followed up with him. knee xray negative. see full report. Schizofrenia / Bipolar Disorder Home med not on formulary: Paliperidone [Invega]) 3 mg PO BID [facility] Sustitute with equivalent dosing: Risperdidone 2mg Q12H (Lamictal) 25 mg PO DAILY [facility] Hepatitis ID consult, Dr. Mcintyre, f/u recs -Serology reactive for hepatitis A IgM and hepatitis C Ab -Negative for Hep A Ab total, Hep BsAg, HepB Core IgM Ab HIV negative w/transaminitis -pt states chronic hx of Hep C. Was evaluated by GI several years ago and was told she does not have to continue treatment. -Dr. Lincoln will refer patient to GI as outpatient regarding Hepatitis C Prophylaxis Lovenox) 40 mg SC DAILY [facility] Pepcid) 20 mg PO HS [facility] Sodium Chloride) 100 mls @ 100 mls/hr IVPB DAILY [facility] Desyrel) 50 mg PO HS [facility] Possible DC home with services/ transportation to infusion center for daily dose of vancomycin/ ceftriaxone PICC request placed. Patient to have 5 more days of vancomycin 1g IV daily and ceftriaxone 1g IV daily. Case discussed with attending. All medical management as per Dr. Austin Lincoln.
[2017-11-09] MEDS: Enoxaparin 40 mg Syringe SC SCH (10:25)
--- NOTE | 2017-11-09 11:33 | CP.PCM.PN ---
Subjective - Date & Time of Evaluation Date of Evaluation: 11/09/17 Time of Evaluation: 11:33 - Subjective Subjective: Patient offers no new complaints. She says her knee is improved. No knee pain. No abdominal pain, n/v Objective - Vital Signs/Intake and Output Vital Signs (last 24 hours): Temp Pulse Resp BP Pulse Ox 98.1 F 82 20 108/67 97 11/09/17 08:00 11/09/17 08:00 11/09/17 08:00 11/09/17 08:00 11/09/17 08:00 Intake and Output: 11/09/17 11/09/17 06:59 18:59 Intake Total 1100 Balance 1100 - Medications Medications: Current Medications Diphenhydramine HCl (Benadryl) 25 mg PO Q6 PRN PRN Reason: Itching / Pruritus Enoxaparin Sodium (Lovenox) 40 mg SC DAILY [facility] Last Admin: 11/09/17 10:25 Dose: 40 mg Famotidine (Pepcid) 20 mg PO HS [facility] Last Admin: 11/08/17 21:23 Dose: 20 mg Ceftriaxone Sodium 1 gm/ (Sodium Chloride) 100 mls @ 100 mls/hr IVPB DAILY [facility] PRN Reason: Protocol Last Admin: 11/09/17 10:40 Dose: 100 mls/hr Vancomycin/Sodium Chloride (Vancomycin 1 Gm/Ns 200 Ml) 1 gm in 200 mls @ 133 mls/hr IVPB Q24H [facility] PRN Reason: Protocol Stop: 11/11/17 20:01 Last Admin: 11/08/17 20:33 Dose: 133 mls/hr Lamotrigine (Lamictal) 25 mg PO DAILY [facility] Last Admin: 11/09/17 10:25 Dose: 25 mg Morphine Sulfate (Morphine) 4 mg IV Q6 PRN PRN Reason: Pain, Mild (1-3) Last Admin: 11/08/17 21:24 Dose: 4 mg Risperidone (Risperdal Tab) 2 mg PO Q12 [facility] Last Admin: 11/09/17 10:25 Dose: 2 mg Trazodone HCl (Desyrel) 50 mg PO HS [facility] Last Admin: 11/08/17 21:23 Dose: 50 mg - Labs Labs: 11/09/17 07:09 11/09/17 07:09 PT 12.2 SECONDS (9.7-12.2) 11/05/17 17:52 INR 1.1 11/05/17 17:52 APTT 38 SECONDS (21-34) H 11/05/17 17:52 - Extremities Exam Additional comments: Right knee: 0-110 ROM without pain, stable, no erythema, no joint effusion, no drainage. ecchymosis starting to improve, less posterior calf swelling incision well healed calves soft NT neg homans +DP/PT pulses no pain with ambulation Assessment and Plan (1) Status post revision of total replacement of right knee Assessment & Plan: no clinical suspicion of right knee as focus of infection as per DR. Casarez knee appearance is benign blood cultures repeated, awaiting results cont OOB, PT/OT d/w Dr. Casarez, agrees with above Status: Acute (2) Vitamin D deficiency Assessment & Plan: improved from last visit, now 34 Status: Resolved
--- NOTE | 2017-11-09 12:43 | CP.PCM.PN ---
Subjective - Date & Time of Evaluation Date of Evaluation: 11/09/17 Time of Evaluation: 07:40 - Subjective Subjective: clinically same Objective - Vital Signs/Intake and Output Vital Signs (last 24 hours): Temp Pulse Resp BP Pulse Ox 98.1 F 82 20 108/67 97 11/09/17 08:00 11/09/17 08:00 11/09/17 08:00 11/09/17 08:00 11/09/17 08:00 Intake and Output: 11/09/17 11/09/17 06:59 18:59 Intake Total 1100 Balance 1100 - Medications Medications: Current Medications Diphenhydramine HCl (Benadryl) 25 mg PO Q6 PRN PRN Reason: Itching / Pruritus Enoxaparin Sodium (Lovenox) 40 mg SC DAILY [facility] Last Admin: 11/09/17 10:25 Dose: 40 mg Famotidine (Pepcid) 20 mg PO HS [facility] Last Admin: 11/08/17 21:23 Dose: 20 mg Ceftriaxone Sodium 1 gm/ (Sodium Chloride) 100 mls @ 100 mls/hr IVPB DAILY [facility] PRN Reason: Protocol Last Admin: 11/09/17 10:40 Dose: 100 mls/hr Vancomycin/Sodium Chloride (Vancomycin 1 Gm/Ns 200 Ml) 1 gm in 200 mls @ 133 mls/hr IVPB Q24H [facility] PRN Reason: Protocol Stop: 11/11/17 20:01 Last Admin: 11/08/17 20:33 Dose: 133 mls/hr Lamotrigine (Lamictal) 25 mg PO DAILY [facility] Last Admin: 11/09/17 10:25 Dose: 25 mg Morphine Sulfate (Morphine) 4 mg IV Q6 PRN PRN Reason: Pain, Mild (1-3) Last Admin: 11/08/17 21:24 Dose: 4 mg Risperidone (Risperdal Tab) 2 mg PO Q12 [facility] Last Admin: 11/09/17 10:25 Dose: 2 mg Trazodone HCl (Desyrel) 50 mg PO HS [facility] Last Admin: 11/08/17 21:23 Dose: 50 mg - Labs Labs: 11/09/17 07:09 11/09/17 07:09 PT 12.2 SECONDS (9.7-12.2) 11/05/17 17:52 INR 1.1 11/05/17 17:52 APTT 38 SECONDS (21-34) H 11/05/17 17:52 - Constitutional Appears: Well - Head Exam Head Exam: ATRAUMATIC, NORMAL INSPECTION, NORMOCEPHALIC - Eye Exam Eye Exam: EOMI, Normal appearance, PERRL Pupil Exam: NORMAL ACCOMODATION, PERRL - ENT Exam ENT Exam: Mucous Membranes Moist, Normal Exam - Neck Exam Neck Exam: Full ROM, Normal Inspection. absent: Lymphadenopathy - Respiratory Exam Respiratory Exam: Decreased Breath Sounds - Cardiovascular Exam Cardiovascular Exam: REGULAR RHYTHM, +S1, +S2 - GI/Abdominal Exam GI & Abdominal Exam: Soft, Diminished Bowel Sounds - Rectal Exam Rectal Exam: Deferred
--- NOTE | 2017-11-09 15:17 | RAD ---
HISTORY: verify right PICC COMPARISON: 11/20/2016 FINDINGS: Interval placement right-sided PICC line with tip in the SVC/RA junction. LUNGS: Poor inspiration with low lung volumes, crowded bronchovascular markings and mild bibasilar atelectasis. . Interstitial markings are also slightly increased and coarsened in appearance PLEURA: No significant pleural effusion identified, no pneumothorax apparent. CARDIOVASCULAR: Normal. OSSEOUS STRUCTURES: No significant abnormalities. VISUALIZED UPPER ABDOMEN: Metallic clips right upper quadrant of the abdomen again noted OTHER FINDINGS: None. IMPRESSION: Poor inspiration with low lung volumes, crowded bronchovascular markings and mild bibasilar atelectasis. Interstitial markings slightly increased and coarsened in appearance.
[2017-11-09] MEDS: Morphine 4 MG/ML VIAL IV PRN (15:56)
--- NOTE | 2017-11-09 18:20 | CP.PCM.PN ---
Subjective - Date & Time of Evaluation Date of Evaluation: 11/09/17 Time of Evaluation: 09:00 - Subjective Subjective: pt admitted with septic picture cellulitis resolving has ? chronic hep c and Hep A Ig M + cont iv antibiotics for 7 days - await ID of organism - could be contaminant Objective - Vital Signs/Intake and Output Vital Signs (last 24 hours): Temp Pulse Resp BP Pulse Ox 97.5 F L 105 H 20 133/89 97 11/09/17 16:00 11/09/17 16:00 11/09/17 16:00 11/09/17 16:00 11/09/17 16:00 Intake and Output: 11/09/17 11/09/17 06:59 18:59 Intake Total 1100 600 Balance 1100 600 - Medications Medications: Current Medications Diphenhydramine HCl (Benadryl) 25 mg PO Q6 PRN PRN Reason: Itching / Pruritus Enoxaparin Sodium (Lovenox) 40 mg SC DAILY [facility] Last Admin: 11/09/17 10:25 Dose: 40 mg Famotidine (Pepcid) 20 mg PO [facility] Last Admin: 11/08/17 21:23 Dose: 20 mg Ceftriaxone Sodium 1 gm/ (Sodium Chloride) 100 mls @ 100 mls/hr IVPB DAILY [facility] PRN Reason: Protocol Last Admin: 11/09/17 10:40 Dose: 100 mls/hr Vancomycin/Sodium Chloride (Vancomycin 1 Gm/Ns 200 Ml) 1 gm in 200 mls @ 133 mls/hr IVPB Q24H [facility] PRN Reason: Protocol Stop: 11/11/17 20:01 Last Admin: 11/08/17 20:33 Dose: 133 mls/hr Lamotrigine (Lamictal) 25 mg PO DAILY [facility] Last Admin: 11/09/17 10:25 Dose: 25 mg Morphine Sulfate (Morphine) 4 mg IV Q6 PRN PRN Reason: Pain, Mild (1-3) Last Admin: 11/09/17 15:56 Dose: 4 mg Risperidone (Risperdal Tab) 2 mg PO Q12 [facility] Last Admin: 11/09/17 10:25 Dose: 2 mg Trazodone HCl (Desyrel) 50 mg PO [facility] Last Admin: 11/08/17 21:23 Dose: 50 mg - Labs Labs: 11/09/17 07:09 11/09/17 07:09 PT 12.2 SECONDS (9.7-12.2) 11/05/17 17:52 INR 1.1 11/05/17 17:52 APTT 38 SECONDS (21-34) H 11/05/17 17:52 Assessment and Plan (1) Cellulitis Status: Acute (2) Swelling of right knee joint Status: Acute
[2017-11-09] MEDS: Vancomycin 1 gm/NS 200 ml 1 GM/200 ML BAG IVPB SCH (20:47)
[2017-11-10] MEDS: Morphine 4 MG/ML VIAL IV PRN ×3 (00:12→20:56)
[2017-11-10 06:52] LABS: BASO % 1.6 % (0.0-2.0); EOS # 0.2 K/uL (0.0-0.7); EOS % 8.3 % (0.0-4.0); HEMOGLOBIN 10.3 g/dL (11.0-16.0); LYMPH # 0.9 K/uL (1.0-4.3); MEAN CELL VOLUME 85.1 fL (81.0-99.0); MEAN CORPUSCULAR HEMOGLOBIN 28.1 pg (27.0-31.0); MEAN PLATELET VOLUME 8.1 fL (7.2-11.7); MONO # 0.4 K/uL (0.0-0.8); MONO % 20.4 % (0.0-10.0); NEUT # 0.5 K/uL (1.8-7.0); NEUT % 23.7 % (50.0-75.0); NRBC % 0.1 % (0.0-2.0); PLATELET COUNT 100 K/uL (130-400); RBC 3.67 Mil/uL (3.80-5.20); RED CELL DISTRIBUTION WIDTH 19.1 % (11.5-14.5)
[2017-11-10 07:09] LABS: ALBUMIN 3.2 g/dL (3.5-5.0); ALT/SGPT 77 U/L (9-52); AST/SGOT 101 U/L (14-36); BLOOD UREA NITROGEN 5 mg/dL (7-17); CALCIUM 8.7 mg/dl (8.6-10.4); GFR AFRICAN-AMERICAN > 60; GFR NON-AFRICAN AMERICAN > 60
[2017-11-10 07:20] LABS: WHITE BLOOD COUNT 1.9 K/uL (4.8-10.8)
[2017-11-10 09:18] LABS: BANDS 1 % (0-2); EOSINOPHIL 3 % (0-4)
[2017-11-10 09:19] LABS: LYMPHOCYTE 49 % (20-40); MONOCYTE 20 % (0-10); NEUTROPHIL 27 % (50-75); TOTAL CELLS COUNTED 100
[2017-11-10 09:20] LABS: ANISOCYTOSIS SLIGHT; LARGE PLATELETS PRESENT; PLATELET ESTIMATE DECREASED (NORMAL); POIKILOCYTOSIS SLIGHT
[2017-11-10] MEDS: Enoxaparin 40 mg Syringe SC SCH (10:05)
--- NOTE | 2017-11-10 14:43 | CP.PCM.PN ---
Subjective - Date & Time of Evaluation Date of Evaluation: 11/10/17 Time of Evaluation: 08:00 - Subjective Subjective: clinically same Objective - Vital Signs/Intake and Output Vital Signs (last 24 hours): Temp Pulse Resp BP Pulse Ox 98.9 F 94 H 20 109/73 96 11/10/17 08:20 11/10/17 08:20 11/10/17 08:20 11/10/17 08:20 11/10/17 08:20 Intake and Output: 11/10/17 11/10/17 06:59 18:59 Intake Total 850 360 Balance 850 360 - Medications Medications: Current Medications Diphenhydramine HCl (Benadryl) 25 mg PO Q6 PRN PRN Reason: Itching / Pruritus Enoxaparin Sodium (Lovenox) 40 mg SC DAILY [facility] Last Admin: 11/10/17 10:05 Dose: 40 mg Famotidine (Pepcid) 20 mg PO HS [facility] Last Admin: 11/09/17 21:14 Dose: 20 mg Ceftriaxone Sodium 1 gm/ (Sodium Chloride) 100 mls @ 100 mls/hr IVPB DAILY [facility] PRN Reason: Protocol Last Admin: 11/10/17 10:06 Dose: 100 mls/hr Vancomycin/Sodium Chloride (Vancomycin 1 Gm/Ns 200 Ml) 1 gm in 200 mls @ 133 mls/hr IVPB Q24H [facility] PRN Reason: Protocol Stop: 11/11/17 20:01 Last Admin: 11/09/17 20:47 Dose: 133 mls/hr Lamotrigine (Lamictal) 25 mg PO DAILY [facility] Last Admin: 11/10/17 10:05 Dose: 25 mg Morphine Sulfate (Morphine) 4 mg IV Q6 PRN PRN Reason: Pain, Mild (1-3) Last Admin: 11/10/17 07:16 Dose: 4 mg Ondansetron HCl (Zofran Inj) 4 mg IVP Q6H PRN PRN Reason: Nausea/Vomiting Last Admin: 11/09/17 18:51 Dose: 4 mg Risperidone (Risperdal Tab) 2 mg PO Q12 [facility] Last Admin: 11/10/17 10:05 Dose: 2 mg Trazodone HCl (Desyrel) 50 mg PO HS [facility] Last Admin: 11/09/17 21:14 Dose: 50 mg - Labs Labs: 11/10/17 06:41 11/10/17 06:41 PT 12.2 SECONDS (9.7-12.2) 11/05/17 17:52 INR 1.1 11/05/17 17:52 APTT 38 SECONDS (21-34) H 11/05/17 17:52 - Constitutional Appears: Well - Head Exam Head Exam: ATRAUMATIC, NORMAL INSPECTION, NORMOCEPHALIC - Eye Exam Eye Exam: EOMI, Normal appearance, PERRL Pupil Exam: NORMAL ACCOMODATION, PERRL - ENT Exam ENT Exam: Mucous Membranes Moist, Normal Exam - Neck Exam Neck Exam: Full ROM, Normal Inspection. absent: Lymphadenopathy - Respiratory Exam Respiratory Exam: Decreased Breath Sounds - Cardiovascular Exam Cardiovascular Exam: REGULAR RHYTHM, +S1, +S2 - GI/Abdominal Exam GI & Abdominal Exam: Soft, Diminished Bowel Sounds - Rectal Exam Rectal Exam: Deferred
[2017-11-10] MEDS: Vancomycin 1 gm/NS 200 ml 1 GM/200 ML BAG IVPB SCH (19:47)
[2017-11-11] MEDS: Morphine 4 MG/ML VIAL IV PRN ×2 (03:31→18:01)
[2017-11-11 08:49] LABS: BASO % 1.1 % (0.0-2.0); EOS # 0.2 K/uL (0.0-0.7); EOS % 7.7 % (0.0-4.0); HEMOGLOBIN 10.6 g/dL (11.0-16.0); LYMPH # 0.9 K/uL (1.0-4.3); LYMPH % 46.3 % (20.0-40.0); MEAN CELL VOLUME 84.7 fL (81.0-99.0); MEAN CORPUSCULAR HEMOGLOBIN 28.4 pg (27.0-31.0); MEAN CORPUSCULAR HGB CONC 33.6 g/dL (33.0-37.0); MEAN PLATELET VOLUME 8.5 fL (7.2-11.7); MONO # 0.4 K/uL (0.0-0.8); NEUT # 0.5 K/uL (1.8-7.0); NEUT % 25.9 % (50.0-75.0); NRBC % 0.4 % (0.0-2.0); RBC 3.74 Mil/uL (3.80-5.20); RED CELL DISTRIBUTION WIDTH 18.7 % (11.5-14.5)
[2017-11-11 09:11] LABS: ALBUMIN 3.3 g/dL (3.5-5.0); ALT/SGPT 74 U/L (9-52); AST/SGOT 101 U/L (14-36); BLOOD UREA NITROGEN 5 mg/dL (7-17); CALCIUM 8.6 mg/dl (8.6-10.4); GFR AFRICAN-AMERICAN > 60; GFR NON-AFRICAN AMERICAN > 60
[2017-11-11] MEDS: Enoxaparin 40 mg Syringe SC SCH (09:11)
--- NOTE | 2017-11-11 13:12 | CP.PCM.PN ---
Subjective - Date & Time of Evaluation Date of Evaluation: 11/11/17 Time of Evaluation: 09:00 - Subjective Subjective: improving slowly afeb pain less Objective - Vital Signs/Intake and Output Vital Signs (last 24 hours): Temp Pulse Resp BP Pulse Ox 98.7 F 105 H 20 115/82 95 11/11/17 08:21 11/11/17 08:21 11/11/17 08:21 11/11/17 08:21 11/11/17 08:21 Intake and Output: 11/11/17 11/11/17 06:59 18:59 Intake Total 960 Balance 960 - Medications Medications: Current Medications Diphenhydramine HCl (Benadryl) 25 mg PO Q6 PRN PRN Reason: Itching / Pruritus Enoxaparin Sodium (Lovenox) 40 mg SC DAILY [facility] Last Admin: 11/11/17 09:11 Dose: 40 mg Famotidine (Pepcid) 20 mg PO [facility] Last Admin: 11/10/17 21:00 Dose: 20 mg Vancomycin/Sodium Chloride (Vancomycin 1 Gm/Ns 200 Ml) 1 gm in 200 mls @ 133 mls/hr IVPB Q24H [facility] PRN Reason: Protocol Stop: 11/11/17 20:01 Last Admin: 11/10/17 19:47 Dose: 133 mls/hr Lamotrigine (Lamictal) 25 mg PO DAILY [facility] Last Admin: 11/11/17 09:12 Dose: 25 mg Morphine Sulfate (Morphine) 4 mg IV Q6 PRN PRN Reason: Pain, Mild (1-3) Last Admin: 11/11/17 03:31 Dose: 4 mg Ondansetron HCl (Zofran Inj) 4 mg IVP Q6H PRN PRN Reason: Nausea/Vomiting Last Admin: 11/09/17 18:51 Dose: 4 mg Risperidone (Risperdal Tab) 2 mg PO Q12 [facility] Last Admin: 11/11/17 09:12 Dose: 2 mg Trazodone HCl (Desyrel) 50 mg PO HS [facility] Last Admin: 11/10/17 21:00 Dose: 50 mg - Labs Labs: 11/11/17 08:40 11/11/17 08:40 PT 12.2 SECONDS (9.7-12.2) 11/05/17 17:52 INR 1.1 11/05/17 17:52 APTT 38 SECONDS (21-34) H 11/05/17 17:52 - Constitutional Appears: Non-toxic - Head Exam Head Exam: ATRAUMATIC, NORMAL INSPECTION, NORMOCEPHALIC - Eye Exam Eye Exam: EOMI, Normal appearance, PERRL Pupil Exam: NORMAL ACCOMODATION, PERRL - ENT Exam ENT Exam: Mucous Membranes Moist, Normal Exam - Neck Exam Neck Exam: Full ROM, Normal Inspection. absent: Lymphadenopathy - Respiratory Exam Respiratory Exam: Clear to Ausculation Bilateral, NORMAL BREATHING PATTERN - Cardiovascular Exam Cardiovascular Exam: REGULAR RHYTHM, +S1, +S2. absent: Murmur - GI/Abdominal Exam GI & Abdominal Exam: Soft, Normal Bowel Sounds. absent: Tenderness - Rectal Exam Rectal Exam: NORMAL INSPECTION - Exam Exam: Circumcision, NORMAL INSPECTION - Extremities Exam Extremities Exam: Full ROM, Normal Capillary Refill, Normal Inspection. absent : Joint Swelling, Pedal Edema - Back Exam Back Exam: NORMAL INSPECTION - Neurological Exam Neurological Exam: Alert, Awake, CN II-XII Intact, Normal Gait, Oriented x3 - Psychiatric Exam Psychiatric exam: Normal Affect, Normal Mood - Skin Skin Exam: Dry, Intact, Normal Color, Warm Assessment and Plan (1) Cellulitis Status: Acute (2) Swelling of right knee joint Status: Acute - Assessment and Plan (Free Text) Assessment: will need follow up for hepatitis to cont iv antibiotics for 7 days
--- NOTE | 2017-11-11 14:14 | CP.PCM.PN ---
Subjective - Date & Time of Evaluation Date of Evaluation: 11/11/17 Time of Evaluation: 02:00 - Subjective Subjective: PT COMFORATBEL Objective - Vital Signs/Intake and Output Vital Signs (last 24 hours): Temp Pulse Resp BP Pulse Ox 98.7 F 105 H 20 115/82 95 11/11/17 08:21 11/11/17 08:21 11/11/17 08:21 11/11/17 08:21 11/11/17 08:21 Intake and Output: 11/11/17 11/11/17 06:59 18:59 Intake Total 960 Balance 960 - Medications Medications: Current Medications Diphenhydramine HCl (Benadryl) 25 mg PO Q6 PRN PRN Reason: Itching / Pruritus Enoxaparin Sodium (Lovenox) 40 mg SC DAILY [facility] Last Admin: 11/11/17 09:11 Dose: 40 mg Famotidine (Pepcid) 20 mg PO HS [facility] Last Admin: 11/10/17 21:00 Dose: 20 mg Vancomycin/Sodium Chloride (Vancomycin 1 Gm/Ns 200 Ml) 1 gm in 200 mls @ 133 mls/hr IVPB Q24H [facility] PRN Reason: Protocol Stop: 11/11/17 20:01 Last Admin: 11/10/17 19:47 Dose: 133 mls/hr Lamotrigine (Lamictal) 25 mg PO DAILY [facility] Last Admin: 11/11/17 09:12 Dose: 25 mg Morphine Sulfate (Morphine) 4 mg IV Q6 PRN PRN Reason: Pain, Mild (1-3) Last Admin: 11/11/17 03:31 Dose: 4 mg Ondansetron HCl (Zofran Inj) 4 mg IVP Q6H PRN PRN Reason: Nausea/Vomiting Last Admin: 11/09/17 18:51 Dose: 4 mg Risperidone (Risperdal Tab) 2 mg PO Q12 [facility] Last Admin: 11/11/17 09:12 Dose: 2 mg Trazodone HCl (Desyrel) 50 mg PO HS [facility] Last Admin: 11/10/17 21:00 Dose: 50 mg - Labs Labs: 11/11/17 08:40 11/11/17 08:40 PT 12.2 SECONDS (9.7-12.2) 11/05/17 17:52 INR 1.1 11/05/17 17:52 APTT 38 SECONDS (21-34) H 11/05/17 17:52 - Additional Findings Additional findings: NO EVIDENCE FOR LOCAL OR SYSTEMIC SUPERFICIAL OR DEEP SEPSIS rom EXCELLENT Assessment and Plan - Assessment and Plan (Free Text) Assessment: S/P COMPLEX CONSTRAINED tkr NO MEVDIENCE FOR SEPSIS p- ORTHOPEDICALLY STABLE FULLW EIGHT BEARING
--- NOTE | 2017-11-11 15:45 | CP.PCM.PN ---
Subjective - Date & Time of Evaluation Date of Evaluation: 11/11/17 Time of Evaluation: 08:00 - Subjective Subjective: clinically same Objective - Vital Signs/Intake and Output Vital Signs (last 24 hours): Temp Pulse Resp BP Pulse Ox 98.7 F 105 H 20 115/82 95 11/11/17 08:21 11/11/17 08:21 11/11/17 08:21 11/11/17 08:21 11/11/17 08:21 Intake and Output: 11/11/17 11/11/17 06:59 18:59 Intake Total 960 300 Output Total 400 Balance 960 -100 - Medications Medications: Current Medications Diphenhydramine HCl (Benadryl) 25 mg PO Q6 PRN PRN Reason: Itching / Pruritus Enoxaparin Sodium (Lovenox) 40 mg SC DAILY [facility] Last Admin: 11/11/17 09:11 Dose: 40 mg Famotidine (Pepcid) 20 mg PO [facility] Last Admin: 11/10/17 21:00 Dose: 20 mg Vancomycin/Sodium Chloride (Vancomycin 1 Gm/Ns 200 Ml) 1 gm in 200 mls @ 133 mls/hr IVPB Q24H [facility] PRN Reason: Protocol Stop: 11/11/17 20:01 Last Admin: 11/10/17 19:47 Dose: 133 mls/hr Lamotrigine (Lamictal) 25 mg PO DAILY [facility] Last Admin: 11/11/17 09:12 Dose: 25 mg Morphine Sulfate (Morphine) 4 mg IV Q6 PRN PRN Reason: Pain, Mild (1-3) Last Admin: 11/11/17 03:31 Dose: 4 mg Ondansetron HCl (Zofran Inj) 4 mg IVP Q6H PRN PRN Reason: Nausea/Vomiting Last Admin: 11/09/17 18:51 Dose: 4 mg Risperidone (Risperdal Tab) 2 mg PO Q12 [facility] Last Admin: 11/11/17 09:12 Dose: 2 mg Trazodone HCl (Desyrel) 50 mg PO HS [facility] Last Admin: 11/10/17 21:00 Dose: 50 mg - Labs Labs: 11/11/17 08:40 11/11/17 08:40 PT 12.2 SECONDS (9.7-12.2) 11/05/17 17:52 INR 1.1 11/05/17 17:52 APTT 38 SECONDS (21-34) H 11/05/17 17:52 - Constitutional Appears: Well - Head Exam Head Exam: ATRAUMATIC, NORMAL INSPECTION, NORMOCEPHALIC - Eye Exam Eye Exam: EOMI, Normal appearance, PERRL Pupil Exam: NORMAL ACCOMODATION, PERRL - ENT Exam ENT Exam: Mucous Membranes Moist, Normal Exam - Neck Exam Neck Exam: Full ROM, Normal Inspection. absent: Lymphadenopathy - Respiratory Exam Respiratory Exam: Decreased Breath Sounds - Cardiovascular Exam Cardiovascular Exam: REGULAR RHYTHM, +S1, +S2 - GI/Abdominal Exam GI & Abdominal Exam: Soft, Diminished Bowel Sounds - Rectal Exam Rectal Exam: Deferred
[2017-11-11 16:27] VITALS: BP 107/70; PULSE 82; TEMP 98.6; O2SAT 96
[2017-11-11] MEDS: Vancomycin 1 gm/NS 200 ml 1 GM/200 ML BAG IVPB SCH (19:15)
== END 2017-11-11 21:20 | disposition home or self-care (01) | DRG 565 ==
LOC: C.ER 17:07 → C.9E 18:35 → C.5S 20:15 → C.3T 11-07 20:37
PROVIDERS: ADMIT Internal Medicine Nephrology; ATTEND Internal Medicine Nephrology
PROC: 02HV33Z Insertion of Infusion Device into Superior Vena Cava, Percutaneous Approach (ICD-10-PCS; principal; 2017-11-09)
PROC: B548ZZA Ultrasonography of Superior Vena Cava, Guidance (ICD-10-PCS; 2017-11-09)
DX: M25.461 Effusion, right knee (principal); L03.115 Cellulitis of right lower limb; B15.9 Hepatitis A without hepatic coma; Z96.651 Presence of right artificial knee joint; B18.2 Chronic viral hepatitis C; D70.9 Neutropenia, unspecified; E55.9 Vitamin D deficiency, unspecified; F20.9 Schizophrenia, unspecified; F31.9 Bipolar disorder, unspecified; Z86.73 Personal history of transient ischemic attack (TIA), and cerebral infarction without residual deficits; Z79.899 Other long term (current) drug therapy

== ENCOUNTER 2018-01-22 18:11 | Inpatient (IN) | payer MEDICARE, OTHER ==
[2018-01-22 18:12] VITALS: BMI 26.3
[2018-01-22] MEDS ORDERED: Sodium Chloride 0.9% 500 ML IV ONE (18:50)
--- NOTE | 2018-01-22 18:52 | C.PDOC ---
History Of Present Illness 62 years old female patient with past medical history of TIA, schizophrenia, personality disorder, seizures, depression, anxiety, gallbladder disease S/P cholecystectomy, history of multiple right knee surgeries, chronic Right knee pain, presented to the emergency department with complaint of worsening of right knee pain for past 4-5 days associated with swelling over Right ankle, warmth to touch over the right knee, (+) chills. Patient is able to ambulate with mild pain. Denies recent trauma or injury, recent fall. Denies any other major symptoms Time Seen by Provider: 01/22/18 18:28 Chief Complaint (Nursing): Lower Extremity Problem/Injury History Per: Patient Past Medical History Reviewed: Historical Data, Nursing Documentation, Vital Signs Vital Signs: Last Vital Signs Temp 98.8 F 01/22/18 20:50 Pulse 95 H 01/22/18 20:50 Resp 18 01/22/18 20:50 BP 142/88 01/22/18 20:50 Pulse Ox 100 01/22/18 20:50 - Medical History PMH: Anxiety, Bipolar Disorder, Depression, Gastritis, Gall Bladder Disease ( farzana), Personality Disorder, Schizophrenia, Seizures, TIA Denies: Alzheimer's Disease, Asthma, Atrial Fibrillation, Bronchitis, Cardia Arrhythmia, CHF, COPD, Dementia, Emphysema, HIV, HTN, Hypercholesterolemia, Chronic Kidney Disease, Sexually Transmitted Disease Surgical History: Cholecystectomy, (x2) - [facility] Procedures COMPUTER ASSISTED PROCEDURE OF LOWER EXTREMITY (12/14/16) DRAINAGE OF RIGHT KNEE JOINT, PERC ENDO APPROACH, DIAGN (05/28/17) EXCISION OF RIGHT KNEE JOINT, OPEN APPROACH (08/06/17) EXCISION OF RIGHT LOWER LEG MUSCLE, OPEN APPROACH (05/28/17) EXTIRPATION OF MATTER FROM RIGHT KNEE JOINT, OPEN APPROACH (01/07/17) FLUOROSCOPY OF SUPERIOR VENA CAVA, GUIDANCE (04/22/17) INSERTION OF INFUSION DEV INTO SUP VENA CAVA, PERC APPROACH (11/05/17) INSERTION OF SPACER INTO RIGHT KNEE JOINT, OPEN APPROACH (05/28/17) INTRODUCE ANTI-INFLAM IN PERIPH NRV, PLEXI, PERC (08/06/17) INTRODUCE LOCAL ANESTH IN PERIPH NRV, PLEXI, PERC (08/06/17) INTRODUCE OTH ANTI-INFECT IN CENTRAL VEIN, PERC (04/22/17) INTRODUCTION OF OTH ANTI-INFECT INTO JOINT, OPEN APPROACH (04/22/17) PLAIN RADIOGRAPHY OF RIGHT KNEE USING OTHER CONTRAST (05/28/17) RELEASE RIGHT KNEE JOINT, OPEN APPROACH (12/14/16) REMOVAL OF SPACER FROM RIGHT KNEE JOINT, OPEN APPROACH (08/06/17) REMOVAL OF SYNTH SUB FROM R KNEE JT, FEMORAL, OPEN APPROACH (08/06/17) REMOVAL OF SYNTH SUB FROM R KNEE JT, OPEN APPROACH (05/28/17) REMOVAL OF SYNTH SUB FROM R KNEE JT, TIBIAL, OPEN APPROACH (08/06/17) REPAIR RIGHT UPPER LEG TENDON, OPEN APPROACH (01/07/17) REPLACE OF R KNEE JT WITH SYNTH SUB, CEMENT, OPEN APPROACH (12/14/16) REPLACE OF R KNEE JT, FEMORAL WITH SYNTH SUB, OPEN APPROACH (08/06/17) REPLACE OF R KNEE JT, TIBIAL WITH SYNTH SUB, OPEN APPROACH (08/06/17) REPOSITION RIGHT TIBIA, OPEN APPROACH (12/14/16) REVISION OF SYNTH SUB IN R KNEE JT, TIBIAL, OPEN APPROACH (04/22/17) TRANSFUSE NONAUT RED BLOOD CELLS IN PERIPH VEIN, PERC (08/06/17) ULTRASONOGRAPHY OF SUPERIOR VENA CAVA, GUIDANCE (11/05/17) Family History: States: No Known Family Hx - Social History Hx Tobacco Use: No Hx Alcohol Use: No Hx Substance Use: No - Immunization History Hx Tetanus Toxoid Vaccination: No Hx Influenza Vaccination: No Hx Pneumococcal Vaccination: No Review Of Systems Except As Marked, All Systems Reviewed And Found Negative. Constitutional: Positive for: Chills. Negative for: Fever ENT: Negative for: Throat Pain Cardiovascular: Negative for: Chest Pain, Palpitations Respiratory: Negative for: Cough, Shortness of Breath, Wheezing Gastrointestinal: Negative for: Nausea, Vomiting, Abdominal Pain, Diarrhea Genitourinary: Negative for: Dysuria, Incontinence Musculoskeletal: Positive for: Other (Right knee pain). Negative for: Neck Pain , Back Pain Skin: Positive for: Rash Neurological: Negative for: Weakness, Numbness, Headache, Dizziness Physical Exam - Physical Exam Appears: Well, No Acute Distress Skin: Normal Color, Warm, Dry, Other ((+) erythema over anterior aspect Right knee extend down anterior aspect Right lower leg, mild edema. ) Eye(s): bilateral: PERRL Nose: No Flaring Oral Mucosa: Moist Throat: No Erythema Neck: Trachea Midline, Supple Cardiovascular: Rhythm Regular, No Murmur, No JVD Respiratory: No Decreased Breath Sounds, No Accessory Muscle Use, No Stridor, No Wheezing Gastrointestinal/Abdominal: Soft, No Tenderness, No Distention, No Guarding Extremity: Normal ROM (discofmort to Right knee flexion due to pain), Tenderness (diffuse anterior aspect Right knee), Calf Tenderness (mild Right), No Deformity, Swelling (diffuse Right ankle edema) Neurological/Psych: Oriented x3, Normal Speech, Normal Motor, Normal Sensation, Normal Reflexes ED Course And Treatment - Laboratory Results Result Diagrams: 01/22/18 19:54 01/22/18 19:29 Lab Interpretation: No Changes Compared To Prior Results O2 Sat by Pulse Oximetry: 97 Pulse Ox Interpretation: Normal Progress Note: Pt was OBS in ED for 2 hours. On re-eval, pt still c/o Right knee pain. Afebrile, hemodynamicaly stable. RLE: erythema to Right knee extend dwon to anterior aspect Right lower leg. FAROM, no neurovascular deficits. Blood work review- pancytopenea. Case discussed woith and admisison with Dx: Cellulitis arranged. Disposition - Disposition Disposition: HOSPITALIZED Disposition Time: 20:31 Condition: STABLE - Clinical Impression Clinical Impression: Cellulitis, Arthritis
[2018-01-22] MEDS ORDERED: cefTRIAXone 1 gm 1 GM/100 ML BAG IVPB ONE (19:36)
[2018-01-22 19:40] LABS: SQUAMOUS EPITHIAL 2 /hpf (0-5); URINE BACTERIA RARE (<OCC); URINE BILIRUBIN NEGATIVE (NEGATIVE); URINE BLOOD 1+ (NEGATIVE); URINE CLARITY Clear (Clear); URINE COLOR Straw (YELLOW); URINE GLUCOSE (UA) NORMAL (Normal); URINE LEUKOCYTE ESTERASE TRACE Leu/uL (Negative); URINE PROTEIN NEGATIVE (NEGATIVE); URINE UROBILINOGEN NORMAL mg/dL (0.2-1.0)
[2018-01-22 19:45] LABS: INR 1.2; PROTHROMBIN TIME 13.4 SECONDS (9.7-12.2)
[2018-01-22 19:50] LABS: ALBUMIN 3.6 g/dL (3.5-5.0); ALT/SGPT 79 U/L (9-52); AST/SGOT 97 U/L (14-36); BLOOD UREA NITROGEN 8 mg/dL (7-17); CALCIUM 8.9 mg/dl (8.6-10.4); GFR NON-AFRICAN AMERICAN > 60
[2018-01-22 19:52] LABS: BARBITURATES, UR NEGATIVE (NEGATIVE); BENZODIAZEPINES, UR NEGATIVE (NEGATIVE); OPIATES, UR NEGATIVE (NEGATIVE); PHENCYCLIDINE, UR NEGATIVE (NEGATIVE)
[2018-01-22 19:57] LABS: EOS # 0.1 K/uL (0.0-0.7); MONO # 0.4 K/uL (0.0-0.8); NEUT # 0.9 K/uL (1.8-7.0)
[2018-01-22 20:03] LABS: RED CELL DISTRIBUTION WIDTH 19.1 % (11.5-14.5)
[2018-01-22 20:07] LABS: BASO % 0.7 % (0.0-2.0); EOS % 6.1 % (0.0-4.0); HEMOGLOBIN 10.7 g/dL (11.0-16.0); LYMPH % 39.3 % (20.0-40.0); MEAN CELL VOLUME 85.1 fL (81.0-99.0); MEAN CORPUSCULAR HEMOGLOBIN 28.6 pg (27.0-31.0); MEAN CORPUSCULAR HGB CONC 33.6 g/dL (33.0-37.0); MONO % 16.9 % (0.0-10.0); NRBC % 0.5 % (0.0-2.0); RBC 3.76 Mil/uL (3.80-5.20); WHITE BLOOD COUNT 2.4 K/uL (4.8-10.8)
[2018-01-22 23:55] VITALS: RESP 20
[2018-01-23] MEDS: Vancomycin 1 gm/NS 200 ml 1 GM/200 ML BAG IVPB SCH (01:00)
[2018-01-23] MEDS: Piperacill/Tazo 3.375gm in Dex 3.375 GM/50 ML BAG IVPB SCH ×3 (01:01→17:35)
[2018-01-23] MEDS ORDERED: PALIPERIDONE 3 MG PO SCH (10:00)
[2018-01-23] MEDS: Enoxaparin 40 mg Syringe SC SCH (10:19)
--- NOTE | 2018-01-23 12:46 | CP.PCM.CON ---
History of Present Illness - History of Present Illness History of Present Illness: Orthopedic consultation Dr. Casarez 62F s/p right hinge TKR revision 08/09/2017 complains of increased pain adn swelling in her right lower leg and ankle this week, so she presented to ED. She says now her leg is improved after the got the antibiotics. She says the pain is worst down near her ankle. Denies any trauma or falls. Denies CP/SOB/ dizziness/palp/numbnes/tingling. She denies any fever/chills/wounds. Review of Systems - Review of Systems All systems: reviewed and no additional remarkable complaints except - Cardiovascular Cardiovascular: As Per HPI - Respiratory Respiratory: As Per HPI - Gastrointestinal Gastrointestinal: As Per HPI - Musculoskeletal Musculoskeletal: As Per HPI - Integumentary Integumentary: As Per HPI - Neurological Neurological: As Per HPI - Hematologic/Lymphatic Hematologic: absent: As Per HPI, Easy Bleeding, Easy Bruising, Lymphadenopathy, Other Past Patient History - Infectious Disease Hx of Infectious Diseases: None - Tetanus Immunizations Tetanus Immunization: Unknown - Past Medical History & Family History Past Medical History?: Yes Past Family History: Reviewed and not pertinent - Past Social History Smoking Status: Never Smoked - CARDIAC Hx Atrial Fibrillation: No Hx Cardia Arrhythmia: No Hx Congestive Heart Failure: No Hx Hypercholesterolemia: No Hx Hypertension: No - PULMONARY Hx Asthma: No Hx Bronchitis: No Hx Chronic Obstructive Pulmonary Disease (COPD): No Hx Emphysema: No - NEUROLOGICAL Hx Alzheimer's Disease: No Hx Dementia: No Hx Seizures: Yes Hx Transient Ischemic Attacks (TIA): Yes - HEENT Hx HEENT Problems: No - RENAL Hx Chronic Kidney Disease: No - ENDOCRINE/METABOLIC Hx Endocrine Disorders: No - HEMATOLOGICAL/ONCOLOGICAL Hx Human Immunodeficiency Virus (HIV): No - INTEGUMENTARY Hx Dermatological Problems: No - MUSCULOSKELETAL/RHEUMATOLOGICAL Hx Musculoskeletal Disorders: Yes Hx Falls: Yes - GASTROINTESTINAL Hx Gall Bladder Disease: Yes (farzana) Hx Gastritis: Yes - GENITOURINARY/GYNECOLOGICAL Hx Sexually Transmitted Disorders: No - PSYCHIATRIC Hx Anxiety: Yes Hx Bipolar Disorder: Yes Hx Depression: Yes Hx Schizophrenia: Yes Hx Substance Use: No - SURGICAL HISTORY Hx Cholecystectomy: Yes - ANESTHESIA Hx Anesthesia: Yes Hx Anesthesia Reactions: No Meds Allergies/Adverse Reactions: Allergies Allergy/AdvReac Type Severity Reaction Status Date / Time No Known Allergies Allergy Verified 08/06/17 06:43 - Medications Medications: Current Medications Benztropine Mesylate (Cogentin) 1 mg PO BID [facility] Last Admin: 01/23/18 10:19 Dose: 1 mg Enoxaparin Sodium (Lovenox) 40 mg SC DAILY [facility] Last Admin: 01/23/18 10:19 Dose: 40 mg Home Med (Paliperidone [Invega]) 3 mg PO BID [facility] Vancomycin/Sodium Chloride (Vancomycin 1 Gm/Ns 200 Ml) 1 gm in 200 mls @ 166.7 mls/hr IVPB Q24H [facility] PRN Reason: Protocol Stop: 01/28/18 01:01 Last Admin: 01/23/18 01:00 Dose: 166.7 mls/hr Piperacillin Sod/Tazobactam Sod (Zosyn 3.375 Gm Iv Premix) 3.375 gm in 50 mls @ 100 mls/hr IVPB Q8H [facility] PRN Reason: Protocol Last Admin: 01/23/18 10:00 Dose: 100 mls/hr Ceftriaxone Sodium 1 gm/ (Sodium Chloride) 100 mls @ 100 mls/hr IVPB Q24H [facility] PRN Reason: Protocol Lamotrigine (Lamictal) 25 mg PO DAILY [facility] Last Admin: 01/23/18 10:19 Dose: 25 mg Mirtazapine (Remeron) 15 mg PO HS [facility] Tramadol HCl (Ultram) 50 mg PO Q6 PRN PRN Reason: Pain, severe (8-10) Trazodone HCl (Desyrel) 100 mg PO HS [facility] Physical Exam - Constitutional Appears: Well, No Acute Distress - Head Exam Head Exam: ATRAUMATIC - Neck Exam Neck exam: Positive for: Full Rom, Normal Inspection - Expanded Lower Extremities Exam Right Knee exam: full ROM, normal inspection (no erythena, no swelling, inicsion well healed, maintained ROM) Ankle exam: FULL ROM, NORMAL INSPECTION, tenderness (to medial and lateral lower leg just prox to elbow. Appearance is benign. +DP/PT pulses, skin intact) - Neurological Exam Neurological exam: Alert, Oriented x3 - Psychiatric Exam Psychiatric exam: Normal Affect, Normal Mood - Skin Skin Exam: Dry, Intact, Normal Color, Warm Results - Vital Signs Recent Vital Signs: Last Vital Signs Temp 98.8 F 01/23/18 07:59 Pulse 82 09/05/18 07:59 Resp 20 01/23/18 07:59 BP 108/65 01/23/18 07:59 Pulse Ox 95 01/23/18 10:00 - Labs Result Diagrams: 01/22/18 19:54 01/22/18 19:29 Labs: Laboratory Results - last 24 hr 01/22/18 01/22/18 01/22/18 19:29 19:29 19:29 WBC RBC Hgb Hct MCV MCH MCHC RDW Plt Count MPV Neut % (Auto) Lymph % (Auto) [place] % (Auto) Eos % (Auto) Baso % (Auto) Neut # (Auto) Lymph # (Auto) [place] # (Auto) Eos # (Auto) Baso # (Auto) PT 13.4 H INR 1.2 APTT 33 Sodium 144 Potassium 3.7 Chloride 110 H Carbon Dioxide 24 Anion Gap 14 BUN 8 Creatinine 0.5 L Est GFR ( Amer) > 60 Est GFR (Non-Af Amer) > 60 Random Glucose 115 H Calcium 8.9 Total Bilirubin 0.6 AST 97 H ALT 79 H Alkaline Phosphatase 207 H D Total Protein 7.1 Albumin 3.6 Globulin 3.4 Albumin/Globulin Ratio 1.0 Urine Color Straw Urine Clarity Clear Urine pH 6.0 Ur Specific [place] 1.004 Urine Protein Negative Urine Glucose (UA) Normal Urine Ketones Negative Urine Blood 1+ H Urine Nitrate Negative Urine Bilirubin Negative Urine Urobilinogen Normal Ur Leukocyte Esterase Trace Urine WBC (Auto) 3 Urine RBC (Auto) 2 Ur Squamous Epith Cells 2 Urine Bacteria Rare Urine Opiates Screen Urine Methadone Screen Ur Barbiturates Screen Ur Phencyclidine Scrn Ur Amphetamines Screen U Benzodiazepines Scrn U Oth Cocaine Metabols U Cannabinoids Screen 01/22/18 01/22/18 19:29 19:54 WBC 2.4 L RBC 3.76 L Hgb 10.7 L Hct 32.0 L MCV 85.1 MCH 28.6 MCHC 33.6 RDW 19.1 H Plt Count 119 L D MPV 8.0 Neut % (Auto) 37.0 L Lymph % (Auto) 39.3 [place] % (Auto) 16.9 H Eos % (Auto) 6.1 H Baso % (Auto) 0.7 Neut # (Auto) 0.9 L Lymph # (Auto) 1.0 [place] # (Auto) 0.4 Eos # (Auto) 0.1 Baso # (Auto) 0.0 PT INR APTT Sodium Potassium Chloride Carbon Dioxide Anion Gap BUN Creatinine Est GFR ( Amer) Est GFR (Non-Af Amer) Random Glucose Calcium Total Bilirubin AST ALT Alkaline Phosphatase Total Protein Albumin Globulin Albumin/Globulin Ratio Urine Color Urine Clarity Urine pH Ur Specific [place] Urine Protein Urine Glucose (UA) Urine Ketones Urine Blood Urine Nitrate Urine Bilirubin Urine Urobilinogen Ur Leukocyte Esterase Urine WBC (Auto) Urine RBC (Auto) Ur Squamous Epith Cells Urine Bacteria Urine Opiates Screen Negative Urine Methadone Screen Negative Ur Barbiturates Screen Negative Ur Phencyclidine Scrn Negative Ur Amphetamines Screen Negative U Benzodiazepines Scrn Negative U Oth Cocaine Metabols Negative U Cannabinoids Screen Negative Assessment & Plan (1) Right leg pain Assessment and Plan: dopplers prelim neg DVT RLE appearance benign f/u xrays no cellulitis noted PT/OT WBAT VTE proph as per Dr. Lincoln d/w Dr. Casarez, agrees with above ortho stable Status: Acute
--- NOTE | 2018-01-23 13:03 | VASCLAB ---
Date of service: 01/23/2018 PROCEDURE: Right Lower Extremity Venous Duplex Exam. HISTORY: Pain in limb. PRIORS: 11/06/2017, normal. TECHNIQUE: Right common femoral, femoral, popliteal and posterior tibial, peroneal and great saphenous veins were evaluated. Flow was assessed with color Doppler, compressibility, assessment of phasic flow and augmentation response. Report prepared by BIENVENIDO Dejesus FINDINGS: RIGHT: 1. Common Femoral Vein: 1.1. Compressibility - Fully compressible: Thrombus - None: Flow - Phasic: Augmentation -Normal: Reflux - None. 2. Femoral Vein: 2.1. Compressibility - Fully compressible: Thrombus - None: Flow - Phasic: Augmentation -Normal: Reflux - None. 3. Popliteal Vein: 3.1. Compressibility - Fully compressible: Thrombus - None: Flow - Phasic: Augmentation -Normal: Reflux - None. 4. Posterior Tibial Vein: 4.1. Compressibility - Fully compressible: Thrombus - None: Flow - Phasic: Augmentation -Normal: Reflux - None. 5. Peroneal Vein: 5.1. Compressibility - Fully compressible: Thrombus - None: Flow - Phasic: Augmentation -Normal: Reflux - None. 6. Great Saphenous Vein: 6.1. Compressibility - Fully compressible: Thrombus -None: Flow - Phasic: Augmentation - Normal: Reflux - Mild 1.98s OTHER FINDINGS: IMPRESSION: No evidence of deep or superficial vein thrombosis of the right lower extremity with excellent venous flow. Mild valvular incompetence noted of the right great saphenous vein. Normal venous flow noted in the left common femoral vein.
--- NOTE | 2018-01-23 17:09 | RAD ---
Date of service: 01/23/2018 PROCEDURE: Right Knee Radiographs. HISTORY: f/u revision TKR COMPARISON: None. FINDINGS: BONES: Satisfactory position alignment of components of right TKA are. JOINTS: Normal. No osteoarthritis. JOINT EFFUSION: None. OTHER FINDINGS: None. IMPRESSION: Satisfactory postoperative status.
--- NOTE | 2018-01-23 20:54 | CP.PCM.CON ---
History of Present Illness - History of Present Illness History of Present Illness: dictated Past Patient History - Infectious Disease Hx of Infectious Diseases: None - Tetanus Immunizations Tetanus Immunization: Unknown - Past Medical History & Family History Past Medical History?: Yes Past Family History: Reviewed and not pertinent - Past Social History Smoking Status: Never Smoked - CARDIAC Hx Atrial Fibrillation: No Hx Cardia Arrhythmia: No Hx Congestive Heart Failure: No Hx Hypercholesterolemia: No Hx Hypertension: No - PULMONARY Hx Asthma: No Hx Bronchitis: No Hx Chronic Obstructive Pulmonary Disease (COPD): No Hx Emphysema: No - NEUROLOGICAL Hx Alzheimer's Disease: No Hx Dementia: No Hx Seizures: Yes Hx Transient Ischemic Attacks (TIA): Yes - HEENT Hx HEENT Problems: No - RENAL Hx Chronic Kidney Disease: No - ENDOCRINE/METABOLIC Hx Endocrine Disorders: No - HEMATOLOGICAL/ONCOLOGICAL Hx Human Immunodeficiency Virus (HIV): No - INTEGUMENTARY Hx Dermatological Problems: No - MUSCULOSKELETAL/RHEUMATOLOGICAL Hx Musculoskeletal Disorders: Yes Hx Falls: Yes - GASTROINTESTINAL Hx Gall Bladder Disease: Yes (farzana) Hx Gastritis: Yes - GENITOURINARY/GYNECOLOGICAL Hx Sexually Transmitted Disorders: No - PSYCHIATRIC Hx Anxiety: Yes Hx Bipolar Disorder: Yes Hx Depression: Yes Hx Schizophrenia: Yes Hx Substance Use: No - SURGICAL HISTORY Hx Cholecystectomy: Yes - ANESTHESIA Hx Anesthesia: Yes Hx Anesthesia Reactions: No Meds Allergies/Adverse Reactions: Allergies Allergy/AdvReac Type Severity Reaction Status Date / Time No Known Allergies Allergy Verified 08/06/17 06:43 - Medications Medications: Current Medications Benztropine Mesylate (Cogentin) 1 mg PO BID [facility] Last Admin: 01/23/18 17:39 Dose: 1 mg Enoxaparin Sodium (Lovenox) 40 mg SC DAILY [facility] Last Admin: 01/23/18 10:19 Dose: 40 mg Home Med (Paliperidone [Invega]) 3 mg PO BID [facility] Vancomycin/Sodium Chloride (Vancomycin 1 Gm/Ns 200 Ml) 1 gm in 200 mls @ 166.7 mls/hr IVPB Q24H [facility] PRN Reason: Protocol Stop: 01/28/18 01:01 Last Admin: 01/23/18 01:00 Dose: 166.7 mls/hr Piperacillin Sod/Tazobactam Sod (Zosyn 3.375 Gm Iv Premix) 3.375 gm in 50 mls @ 100 mls/hr IVPB Q8H [facility] PRN Reason: Protocol Last Admin: 01/23/18 17:35 Dose: 100 mls/hr Ceftriaxone Sodium 1 gm/ (Sodium Chloride) 100 mls @ 100 mls/hr IVPB Q24H [facility] PRN Reason: Protocol Last Admin: 01/23/18 18:37 Dose: 100 mls/hr Lamotrigine (Lamictal) 25 mg PO DAILY [facility] Last Admin: 01/23/18 10:19 Dose: 25 mg Mirtazapine (Remeron) 15 mg PO HS [facility] Tramadol HCl (Ultram) 50 mg PO Q6 PRN PRN Reason: Pain, severe (8-10) Last Admin: 01/23/18 13:48 Dose: 50 mg Trazodone HCl (Desyrel) 100 mg PO HS [facility] Results - Vital Signs Recent Vital Signs: Last Vital Signs Temp 99.6 F 01/23/18 16:00 Pulse 76 01/23/18 16:00 Resp 20 01/23/18 16:00 BP 117/68 01/23/18 16:00 Pulse Ox 95 01/23/18 16:51 - Labs Result Diagrams: 01/22/18 19:54 01/22/18 19:29
--- NOTE | 2018-01-23 20:55 | CP.PCM.CON ---
History of Present Illness - History of Present Illness History of Present Illness: dictated Past Patient History - Infectious Disease Hx of Infectious Diseases: None - Tetanus Immunizations Tetanus Immunization: Unknown - Past Medical History & Family History Past Medical History?: Yes Past Family History: Reviewed and not pertinent - Past Social History Smoking Status: Never Smoked - CARDIAC Hx Atrial Fibrillation: No Hx Cardia Arrhythmia: No Hx Congestive Heart Failure: No Hx Hypercholesterolemia: No Hx Hypertension: No - PULMONARY Hx Asthma: No Hx Bronchitis: No Hx Chronic Obstructive Pulmonary Disease (COPD): No Hx Emphysema: No - NEUROLOGICAL Hx Alzheimer's Disease: No Hx Dementia: No Hx Seizures: Yes Hx Transient Ischemic Attacks (TIA): Yes - HEENT Hx HEENT Problems: No - RENAL Hx Chronic Kidney Disease: No - ENDOCRINE/METABOLIC Hx Endocrine Disorders: No - HEMATOLOGICAL/ONCOLOGICAL Hx Human Immunodeficiency Virus (HIV): No - INTEGUMENTARY Hx Dermatological Problems: No - MUSCULOSKELETAL/RHEUMATOLOGICAL Hx Musculoskeletal Disorders: Yes Hx Falls: Yes - GASTROINTESTINAL Hx Gall Bladder Disease: Yes (farzana) Hx Gastritis: Yes - GENITOURINARY/GYNECOLOGICAL Hx Sexually Transmitted Disorders: No - PSYCHIATRIC Hx Anxiety: Yes Hx Bipolar Disorder: Yes Hx Depression: Yes Hx Schizophrenia: Yes Hx Substance Use: No - SURGICAL HISTORY Hx Cholecystectomy: Yes - ANESTHESIA Hx Anesthesia: Yes Hx Anesthesia Reactions: No Meds Allergies/Adverse Reactions: Allergies Allergy/AdvReac Type Severity Reaction Status Date / Time No Known Allergies Allergy Verified 08/06/17 06:43 - Medications Medications: Current Medications Benztropine Mesylate (Cogentin) 1 mg PO BID [facility] Last Admin: 01/23/18 17:39 Dose: 1 mg Enoxaparin Sodium (Lovenox) 40 mg SC DAILY [facility] Last Admin: 01/23/18 10:19 Dose: 40 mg Home Med (Paliperidone [Invega]) 3 mg PO BID [facility] Vancomycin/Sodium Chloride (Vancomycin 1 Gm/Ns 200 Ml) 1 gm in 200 mls @ 166.7 mls/hr IVPB Q24H [facility] PRN Reason: Protocol Stop: 01/28/18 01:01 Last Admin: 01/23/18 01:00 Dose: 166.7 mls/hr Piperacillin Sod/Tazobactam Sod (Zosyn 3.375 Gm Iv Premix) 3.375 gm in 50 mls @ 100 mls/hr IVPB Q8H [facility] PRN Reason: Protocol Last Admin: 01/23/18 17:35 Dose: 100 mls/hr Ceftriaxone Sodium 1 gm/ (Sodium Chloride) 100 mls @ 100 mls/hr IVPB Q24H [facility] PRN Reason: Protocol Last Admin: 01/23/18 18:37 Dose: 100 mls/hr Lamotrigine (Lamictal) 25 mg PO DAILY [facility] Last Admin: 01/23/18 10:19 Dose: 25 mg Mirtazapine (Remeron) 15 mg PO HS [facility] Tramadol HCl (Ultram) 50 mg PO Q6 PRN PRN Reason: Pain, severe (8-10) Last Admin: 01/23/18 13:48 Dose: 50 mg Trazodone HCl (Desyrel) 100 mg PO HS [facility] Results - Vital Signs Recent Vital Signs: Last Vital Signs Temp 99.6 F 01/23/18 16:00 Pulse 76 01/23/18 16:00 Resp 20 01/23/18 16:00 BP 117/68 01/23/18 16:00 Pulse Ox 95 01/23/18 16:51 - Labs Result Diagrams: 01/22/18 19:54 01/22/18 19:29
--- NOTE | 2018-01-23 21:43 | CP.PCM.HP ---
History of Present Illness - History of Present Illness History of Present Illness: 62-year-old female with PMH of bipolar, depression, schizophrenia, seizures, TIA , anxiety, gallbladder disease S/p cholecystectomy presents to ED with complaint of worsening right knee pain for past 4-5 days. Pain is associated with swelling over right ankle, chills, admits to have history of chronic right knee pain. Patient is able to ambulate with mild pain. Denies recent trauma/ injury/recent fall/fever/pain in any other joint. Present on Admission - Present on Admission Any Indicators Present on Admission: No Past Patient History - Infectious Disease Hx of Infectious Diseases: None - Tetanus Immunizations Tetanus Immunization: Unknown - Past Medical History & Family History Past Medical History?: Yes Past Family History: Reviewed and not pertinent - Past Social History Smoking Status: Never Smoked - CARDIAC Hx Atrial Fibrillation: No Hx Cardia Arrhythmia: No Hx Congestive Heart Failure: No Hx Hypercholesterolemia: No Hx Hypertension: No - PULMONARY Hx Asthma: No Hx Bronchitis: No Hx Chronic Obstructive Pulmonary Disease (COPD): No Hx Emphysema: No - NEUROLOGICAL Hx Alzheimer's Disease: No Hx Dementia: No Hx Seizures: Yes Hx Transient Ischemic Attacks (TIA): Yes - HEENT Hx HEENT Problems: No - RENAL Hx Chronic Kidney Disease: No - ENDOCRINE/METABOLIC Hx Endocrine Disorders: No - HEMATOLOGICAL/ONCOLOGICAL Hx Human Immunodeficiency Virus (HIV): No - INTEGUMENTARY Hx Dermatological Problems: No - MUSCULOSKELETAL/RHEUMATOLOGICAL Hx Musculoskeletal Disorders: Yes Hx Falls: Yes - GASTROINTESTINAL Hx Gall Bladder Disease: Yes (farzana) Hx Gastritis: Yes - GENITOURINARY/GYNECOLOGICAL Hx Sexually Transmitted Disorders: No - PSYCHIATRIC Hx Anxiety: Yes Hx Bipolar Disorder: Yes Hx Depression: Yes Hx Schizophrenia: Yes Hx Substance Use: No - SURGICAL HISTORY Hx Cholecystectomy: Yes - ANESTHESIA Hx Anesthesia: Yes Hx Anesthesia Reactions: No Meds Allergies/Adverse Reactions: Allergies Allergy/AdvReac Type Severity Reaction Status Date / Time No Known Allergies Allergy Verified 08/06/17 06:43 Physical Exam - Constitutional Appears: Well - Head Exam Head Exam: ATRAUMATIC, NORMAL INSPECTION, NORMOCEPHALIC - Eye Exam Eye Exam: EOMI, Normal appearance, PERRL Pupil Exam: NORMAL ACCOMODATION, PERRL - ENT Exam ENT Exam: Mucous Membranes Moist, Normal Exam - Neck Exam Neck exam: Positive for: Normal Inspection - Respiratory Exam Respiratory Exam: Decreased Breath Sounds - Cardiovascular Exam Cardiovascular Exam: REGULAR RHYTHM, +S1, +S2 - GI/Abdominal Exam GI & Abdominal Exam: Diminished Bowel Sounds, Soft - Rectal Exam Rectal Exam: Deferred Results - Vital Signs Recent Vital Signs: Last Vital Signs Temp 99.6 F 01/23/18 16:00 Pulse 76 01/23/18 16:00 Resp 20 01/23/18 16:00 BP 117/68 01/23/18 16:00 Pulse Ox 95 01/23/18 16:51 - Labs Result Diagrams: 01/22/18 19:54 01/22/18 19:29 Assessment & Plan (1) Arthritis Status: Acute (2) Cellulitis Status: Acute (3) Right leg pain Status: Acute (4) Dog bite of right lower leg with infection Status: Acute (5) Drug abuse Status: Acute (6) Infected dog bite of lower leg Status: Acute (7) Infection of prosthetic right knee joint Status: Acute (8) Knee pain Status: Acute (9) Knee pain, acute Status: Acute (10) Knee sprain Status: Acute (11) Metacarpal bone fracture Status: Acute (12) Neutropenia Status: Acute (13) Pancytopenia Status: Acute (14) Preop cardiovascular exam Status: Acute Priority: High (15) Prolonged Q-T interval on ECG Status: Acute (16) Prophylactic measure Status: Acute (17) Right medial tibial plateau fracture Status: Acute (18) Status post revision of total replacement of right knee Status: Acute (19) Swelling of right knee joint Status: Acute (20) Tachycardia with heart rate 100-120 beats per minute Status: Acute (21) Tibial plateau fracture, right Status: Acute (22) Transient alteration of awareness Status: Acute (23) UTI (urinary tract infection) Status: Acute (24) Visit for wound check Status: Acute (25) Wound dehiscence Status: Acute (26) Wound dehiscence, surgical Status: Acute (27) Abnormal LFTs Status: Chronic (28) Coagulopathy Status: Chronic (29) Hepatitis C Status: Chronic (30) History of CVA (cerebrovascular accident) Status: Chronic (31) History of heroin abuse Status: Chronic (32) Leukopenia Status: Chronic (33) Schizoaffective disorder Status: Chronic (34) Thrombocytopenia Status: Chronic (35) Syncope and collapse Status: Resolved Priority: Medium (36) Vitamin D deficiency Status: Resolved - Assessment and Plan (Free Text) Plan: Patient seen and examined bedside Labs WAC of our ED X-ray RLE PTOT ID consult Ortho consult DVT prophylaxis
[2018-01-24] MEDS: Piperacill/Tazo 3.375gm in Dex 3.375 GM/50 ML BAG IVPB SCH ×3 (00:46→17:27)
[2018-01-24] MEDS: Vancomycin 1 gm/NS 200 ml 1 GM/200 ML BAG IVPB SCH (02:12)
--- NOTE | 2018-01-24 09:07 | CON ---
DATE: 01/23/2018 INFECTIOUS DISEASE CONSULT REQUESTED BY: Fred Lincoln MD HISTORY OF PRESENT ILLNESS: This patient is a 62-year-old female. She has history of TIA, schizophrenia, personality disorder, seizure, depression. She tells me her right knee has been operated five times and last surgery was in August. She has a big scar on the right knee. She came in with worsening pain in the right knee for 4 to 5 days and was having swelling over the right ankle. She still complains of pain in the right ankle and she says she had chills. Denied any fevers. The patient has been ambulating with pain and she had some warm to touch of the right knee and she denies any recent trauma or fall. Did say that the pain was more in the right ankle at this time. ALLERGIES: SHE IS NOT ALLERGIC TO ANY MEDICINE. PAST MEDICAL HISTORY: Significant for bipolar depression, gastritis, personality disorder, schizophrenia, seizure disorder, TIA. She also has a history of asthma, atrial fibrillation, CHF, high cholesterol, chronic kidney disease. PAST SURGICAL HISTORY: Multiple knee surgeries on the right, cholecystectomy, . FAMILY HISTORY: Noncontributory. SOCIAL HISTORY: Negative for smoking or drinking or any drug abuse. She denies it. REVIEW OF SYSTEMS: She denied any fevers. Complains of some chills. Denies any ear, nose, throat problems. Denies any chest pain. No palpitations. No cough. No cold. No nausea, no vomiting, no diarrhea. She denies any dysuria, incontinence. Does complain of right knee pain and right ankle pain. Denies any neurological problems. PHYSICAL EXAMINATION: VITAL SIGNS: The temperature was 98.8, pulse 82, blood pressure is 108/65, respirations are 20. HEENT: Head is atraumatic, normocephalic. Pupils are reacting to light. Tongue is moist. NECK: Supple. JVP is flat. LUNGS: Clear. No crackles or rales present. CHEST: Chest wall is symmetrical. HEART: S1, S2 are regular. No murmurs appreciated. ABDOMEN: Soft, nontender. No guarding, no rigidity present. EXTREMITIES: Right knee has increased warmth, but it does not have any cellulitis. She does have some tenderness in the calf area and swelling in the right ankle and right leg, otherwise no redness noted, but she did receive antibiotics in the night and this morning, so she was on Rocephin and now she is on vancomycin and Zosyn. LABORATORY DATA: Her labs are noted. Labs show white count is 2.4, hemoglobin 10.7, hematocrit 32, platelet count is 119. She has pancytopenia. Neutrophils are 37, monos are 16.9. Potassium 3.7, chloride 110. AST is 97, ALT 79, alkaline phosphatase is 207. Urine shows 1+ blood, otherwise at wbc 3, rbc 2. Toxicology was negative. She had an x-ray done. X-ray of the tibia and x-ray of the knee and the knee has normal satisfactory postop status. Knee was unremarkable. They did the Dopplers of the lower extremity and the Dopplers are, right leg lower extremity no thrombus seen, so that appears negative. IMPRESSION: My impression is that this patient should be looked up for gouty arthritis. We will continue antibiotics at this time because she has had multiple times surgery on the knee. Urine culture has Gram-negative, which are less than 10,000 at this time, but she is denying any urinary symptoms. We will get a uric acid level, and also procalcitonin level tomorrow. We will follow. Actually, I will introduce this patient to Dr. Mcintyre as I will be away. So I will order a uric acid level for tomorrow, and also if she continues to have pain, she also needs an Orthopedics evaluation and to continue antibiotics at this time. More problem appears to be in the ankle than the knee. The knee Is warm to touch, may be because with metal there. If she continues to have pain, she needs an Orthopedics evaluation. May need a CAT scan of the knee. We will follow. We will continue with the present antibiotics. Since her creatinine is okay, we will increase the vancomycin to 1 g every 12 hours for now. We will follow. Angela Christopher MD
[2018-01-24] MEDS: Enoxaparin 40 mg Syringe SC SCH (09:34)
--- NOTE | 2018-01-24 10:06 | RAD ---
Date of service: 01/23/2018 PROCEDURE: Radiographs of the right tibia and fibula. HISTORY: s/p TKR COMPARISON: No prior tib fib available however a prior right knee is available 11/05/2017 TECHNIQUE: Frontal and lateral views obtained. FINDINGS: BONES: Patient status post total knee arthroplasty visualize femoral component appears unremarkable. The tibial component appears cemented in otherwise unremarkable. A 4.2 x 1.0 cm focus of moderate density similar to the cement density about the tibial stem is seen between the tibia and fibula on the frontal view persists series [id number], image 1). This is partially visualized on that right knee study JOINT SPACES: Unremarkable. OTHER FINDINGS: None. IMPRESSION: Status post right total knee arthroplasty with apparent cement between the tibia and fibula as referenced above. No hardware failure or interval fracture noted. No change with the present compared to the 10/26/2017 right knee x-ray.
--- NOTE | 2018-01-24 14:00 | CP.PCM.PN ---
Subjective - Date & Time of Evaluation Date of Evaluation: 01/24/18 Time of Evaluation: 13:57 - Subjective Subjective: Patient denies any pain in her right leg at this time. She says she was up with physical therapy today and walked to bathroom. Denies pain during PT while walking also. She says her leg feels better. Denies numbness/tingling/SOB/CP/ dizziness/nv. No fever/chills Review of Systems - Review of Systems All systems: reviewed and no additional remarkable complaints except - Cardiovascular Cardiovascular: As Per HPI - Respiratory Respiratory: As Per HPI - Gastrointestinal Gastrointestinal: As Per HPI - Musculoskeletal Musculoskeletal: As Par HPI - Integumentary Integumentary: As Per HPI - Neurological Neurological: As Per HPI - Hematologic/Lymphatic Hematologic: UNREMARKABLE Objective - Vital Signs/Intake and Output Vital Signs (last 24 hours): Temp Pulse Resp BP Pulse Ox 98.2 F 82 20 120/80 96 01/24/18 08:00 01/24/18 08:00 01/24/18 08:00 01/24/18 08:00 01/24/18 12:37 Intake and Output: 01/24/18 01/24/18 06:59 18:59 Intake Total 600 Balance 600 - Medications Medications: Current Medications Benztropine Mesylate (Cogentin) 1 mg PO BID [facility] Last Admin: 01/24/18 09:34 Dose: 1 mg Enoxaparin Sodium (Lovenox) 40 mg SC DAILY [facility] Last Admin: 01/24/18 09:34 Dose: 40 mg Home Med (Paliperidone [Invega]) 3 mg PO BID [facility] Vancomycin/Sodium Chloride (Vancomycin 1 Gm/Ns 200 Ml) 1 gm in 200 mls @ 166.7 mls/hr IVPB Q24H [facility] PRN Reason: Protocol Stop: 01/28/18 01:01 Last Admin: 01/24/18 02:12 Dose: 166.7 mls/hr Piperacillin Sod/Tazobactam Sod (Zosyn 3.375 Gm Iv Premix) 3.375 gm in 50 mls @ 100 mls/hr IVPB Q8H [facility] PRN Reason: Protocol Last Admin: 01/24/18 09:34 Dose: 100 mls/hr Ceftriaxone Sodium 1 gm/ (Sodium Chloride) 100 mls @ 100 mls/hr IVPB Q24H [facility] PRN Reason: Protocol Last Admin: 01/23/18 18:37 Dose: 100 mls/hr Lamotrigine (Lamictal) 25 mg PO DAILY [facility] Last Admin: 01/24/18 09:34 Dose: 25 mg Mirtazapine (Remeron) 15 mg PO HS [facility] Last Admin: 01/23/18 22:06 Dose: 15 mg Tramadol HCl (Ultram) 50 mg PO Q6 PRN PRN Reason: Pain, severe (8-10) Last Admin: 01/24/18 13:46 Dose: 50 mg Trazodone HCl (Desyrel) 100 mg PO [facility] Last Admin: 01/23/18 22:06 Dose: 100 mg - Labs Labs: 01/22/18 19:54 01/22/18 19:29 PT 13.4 SECONDS (9.7-12.2) H 01/22/18 19:29 INR 1.2 01/22/18 19:29 APTT 33 SECONDS (21-34) 01/22/18 19:29 - Constitutional Appears: Well, No Acute Distress - Head Exam Head Exam: ATRAUMATIC - Neck Exam Neck Exam: Full ROM, Normal Inspection - Respiratory Exam Respiratory Exam: NORMAL BREATHING PATTERN - Cardiovascular Exam Additional comments: +DP/PT pulses - Extremities Exam Additional comments: incision well healed no erythema full AROM/PROM of right knee without pain, no laxity to varus/valgus/ant drawer non tender to knee/lower leg/foot, then complains of some tenderness to ankle full AROM/PROM of ankle without pain. Not warm. Skin intact, no erythema Calves soft NT neg homans sensation intact RLE - Neurological Exam Neurological Exam: Alert, Awake, Oriented x3 Neuro motor strength exam: Right Lower Extremity: 5 - Psychiatric Exam Psychiatric exam: Normal Affect, Normal Mood - Skin Skin Exam: Dry, Intact, Normal Color, Warm Assessment and Plan (1) Right leg pain Assessment & Plan: resolved no suspicion of infection of prosthesis or RLE at this time knee is stable and pain free with ROM and ambulation no pain in ankle with ambulation no further imaging is indicated from orthopedic standpoint xrays of knee and tib/fib reviewed from this admission, no interval change of knee from last xrays 11/05/2017 orthopedically stable for discharge patient instructed she needs regular follow up with Dr. Casarez in office within 2 weeks of discharge PT/OT VTE proph d/w Dr. Casarez, agrees with above Status: Acute (2) Status post revision of total replacement of right knee Status: Acute
--- NOTE | 2018-01-24 15:32 | CP.PCM.PN ---
Subjective - Date & Time of Evaluation Date of Evaluation: 01/24/18 Time of Evaluation: 08:15 - Subjective Subjective: clinically same Objective - Vital Signs/Intake and Output Vital Signs (last 24 hours): Temp Pulse Resp BP Pulse Ox 98.2 F 82 20 120/80 96 01/24/18 08:00 01/24/18 08:00 01/24/18 08:00 01/24/18 08:00 01/24/18 12:37 Intake and Output: 01/24/18 01/24/18 06:59 18:59 Intake Total 600 530 Balance 600 530 - Medications Medications: Current Medications Benztropine Mesylate (Cogentin) 1 mg PO BID [facility] Last Admin: 01/24/18 09:34 Dose: 1 mg Enoxaparin Sodium (Lovenox) 40 mg SC DAILY [facility] Last Admin: 01/24/18 09:34 Dose: 40 mg Home Med (Paliperidone [Invega]) 3 mg PO BID [facility] Vancomycin/Sodium Chloride (Vancomycin 1 Gm/Ns 200 Ml) 1 gm in 200 mls @ 166.7 mls/hr IVPB Q24H [facility] PRN Reason: Protocol Stop: 01/28/18 01:01 Last Admin: 01/24/18 02:12 Dose: 166.7 mls/hr Piperacillin Sod/Tazobactam Sod (Zosyn 3.375 Gm Iv Premix) 3.375 gm in 50 mls @ 100 mls/hr IVPB Q8H [facility] PRN Reason: Protocol Last Admin: 01/24/18 09:34 Dose: 100 mls/hr Ceftriaxone Sodium 1 gm/ (Sodium Chloride) 100 mls @ 100 mls/hr IVPB Q24H [facility] PRN Reason: Protocol Last Admin: 01/23/18 18:37 Dose: 100 mls/hr Lamotrigine (Lamictal) 25 mg PO DAILY [facility] Last Admin: 01/24/18 09:34 Dose: 25 mg Mirtazapine (Remeron) 15 mg PO [facility] Last Admin: 01/23/18 22:06 Dose: 15 mg Tramadol HCl (Ultram) 50 mg PO Q6 PRN PRN Reason: Pain, severe (8-10) Last Admin: 01/24/18 13:46 Dose: 50 mg Trazodone HCl (Desyrel) 100 mg PO [facility] Last Admin: 01/23/18 22:06 Dose: 100 mg - Labs Labs: 01/22/18 19:54 01/22/18 19:29 PT 13.4 SECONDS (9.7-12.2) H 01/22/18 19:29 INR 1.2 01/22/18 19:29 APTT 33 SECONDS (21-34) 01/22/18 19:29 - Constitutional Appears: Well - Head Exam Head Exam: ATRAUMATIC, NORMAL INSPECTION, NORMOCEPHALIC - Eye Exam Eye Exam: EOMI, Normal appearance, PERRL Pupil Exam: NORMAL ACCOMODATION, PERRL Assessment and Plan (1) Arthritis Status: Acute (2) Cellulitis Status: Acute (3) Right leg pain Status: Acute (4) Dog bite of right lower leg with infection Status: Acute (5) Drug abuse Status: Acute (6) Infected dog bite of lower leg Status: Acute (7) Infection of prosthetic right knee joint Status: Acute (8) Knee pain Status: Acute (9) Knee pain, acute Status: Acute (10) Knee sprain Status: Acute (11) Metacarpal bone fracture Status: Acute (12) Neutropenia Status: Acute (13) Pancytopenia Status: Acute (14) Preop cardiovascular exam Status: Acute (15) Prolonged Q-T interval on ECG Status: Acute (16) Prophylactic measure Status: Acute (17) Right medial tibial plateau fracture Status: Acute (18) Status post revision of total replacement of right knee Status: Acute (19) Swelling of right knee joint Status: Acute (20) Tachycardia with heart rate 100-120 beats per minute Status: Acute (21) Tibial plateau fracture, right Status: Acute (22) Transient alteration of awareness Status: Acute (23) UTI (urinary tract infection) Status: Acute (24) Visit for wound check Status: Acute (25) Wound dehiscence Status: Acute (26) Wound dehiscence, surgical Status: Acute (27) Abnormal LFTs Status: Chronic (28) Coagulopathy Status: Chronic (29) Hepatitis C Status: Chronic (30) History of CVA (cerebrovascular accident) Status: Chronic (31) History of heroin abuse Status: Chronic (32) Leukopenia Status: Chronic (33) Schizoaffective disorder Status: Chronic (34) Thrombocytopenia Status: Chronic
[2018-01-25] MEDS: Piperacill/Tazo 3.375gm in Dex 3.375 GM/50 ML BAG IVPB SCH ×2 (01:42→08:17)
[2018-01-25] MEDS: Vancomycin 1 gm/NS 200 ml 1 GM/200 ML BAG IVPB SCH (02:37)
--- NOTE | 2018-01-25 07:06 | CP.PCM.PN ---
Subjective - Date & Time of Evaluation Date of Evaluation: 01/25/18 Time of Evaluation: 09:00 - Subjective Subjective: Medicine Note for Dr. Augustin Lincoln's Service This is a 62 year old female right total knee replacement (Jul 2017), Schizofrenia, Bipolar Disorder, Hepatitis C, and transaminitis comes in with 2- 3 days of right lower extremity swelling. Patient was concerned since she was recently treated for cellulitis that it has returned. Patient reports she is ambulating well today, her right leg looks less swollen. Denied fever, chills, chest pain, shortness of breath, abdominal pain, n/v/d/c, or urinary symptoms. Objective - Vital Signs/Intake and Output Vital Signs (last 24 hours): Temp Pulse Resp BP Pulse Ox 98.7 F 69 20 104/56 L 97 01/25/18 00:00 01/25/18 00:00 01/25/18 00:00 01/25/18 00:00 01/25/18 00:00 Intake and Output: 01/25/18 01/25/18 06:59 18:59 Intake Total 1120 Balance 1120 - Medications Medications: Current Medications Enoxaparin Sodium (Lovenox) 40 mg SC DAILY [facility] Last Admin: 01/24/18 09:34 Dose: 40 mg Famotidine (Pepcid) 20 mg PO DAILY [facility] 234 [facility]S [facility] Home Med (Paliperidone [Invega]) 3 mg PO BID [facility] 234 BEDS AT [facility] Vancomycin/Sodium Chloride (Vancomycin 1 Gm/Ns 200 Ml) 1 gm in 200 mls @ 166.7 mls/hr IVPB Q24H [facility] PRN Reason: Protocol Stop: 01/28/18 01:01 Last Admin: 01/25/18 02:37 Dose: 166.7 mls/hr Piperacillin Sod/Tazobactam Sod (Zosyn 3.375 Gm Iv Premix) 3.375 gm in 50 mls @ 100 mls/hr IVPB Q8H [facility] PRN Reason: Protocol Last Admin: 01/25/18 01:42 Dose: 100 mls/hr Lamotrigine (Lamictal) 25 mg PO DAILY [facility] Last Admin: 01/24/18 09:34 Dose: 25 mg Mirtazapine (Remeron) 15 mg PO HS [facility] 234 BEDS AT [facility] Last Admin: 01/24/18 21:06 Dose: 15 mg Saccharomyces Boulardii (Florastor) 250 mg PO Q12H [facility] Tramadol HCl (Ultram) 50 mg PO Q6 PRN PRN Reason: Pain, severe (8-10) Last Admin: 01/25/18 06:14 Dose: 50 mg Trazodone HCl (Desyrel) 100 mg PO HS [facility] Last Admin: 01/24/18 21:06 Dose: 100 mg - Labs Labs: 01/22/18 19:54 01/22/18 19:29 PT 13.4 SECONDS (9.7-12.2) H 01/22/18 19:29 INR 1.2 01/22/18 19:29 APTT 33 SECONDS (21-34) 01/22/18 19:29 - Constitutional Appears: No Acute Distress - Head Exam Head Exam: NORMAL INSPECTION, NORMOCEPHALIC - Eye Exam Eye Exam: EOMI, Normal appearance, PERRL Pupil Exam: NORMAL ACCOMODATION - ENT Exam ENT Exam: Mucous Membranes Moist, Normal Exam - Neck Exam Neck Exam: Normal Inspection - Respiratory Exam Respiratory Exam: Clear to Ausculation Bilateral, NORMAL BREATHING PATTERN. absent: Decreased Breath Sounds - Cardiovascular Exam Cardiovascular Exam: REGULAR RHYTHM, RRR, +S1, +S2 - GI/Abdominal Exam GI & Abdominal Exam: Soft, Normal Bowel Sounds. absent: Distended, Tenderness - Extremities Exam Extremities Exam: Normal Inspection. absent: Pedal Edema, Tenderness Additional comments: incision well healed no erythema full AROM/PROM of right knee without pain, no laxity to varus/valgus/ant drawer non tender to knee/lower leg/foot, then complains of some tenderness to ankle full AROM/PROM of ankle without pain. Not warm. Skin intact, no erythema Calves soft NT neg homans sensation intact RLE - Neurological Exam Neurological Exam: Alert, Awake, CN II-XII Intact, Oriented x3 - Psychiatric Exam Psychiatric exam: Normal Affect, Normal Mood - Skin Skin Exam: Dry, Intact, Normal Color, Warm Assessment and Plan - Assessment and Plan (Free Text) Plan: Right Lower Extremity Swelling -- Ortho consulted, Dr. Casarez -- ID consulted - Dr. Christopher - S/P R total knee replacement 2017 (with Dr. Casarez) - Patient cleared by Ortho. Patient instructed she needs regular follow up with Dr. Casarez in office [phone] within 2 weeks after discharge. Imaging: - Venous Dopplers negative for DVT - X rays knee and tib/fib - no interval change of knee from last xrays 11/05/2017 Management: - Zosyn, vanco, florastor, tramadol PRN for pain - Procal and uric acid - low - less likely infectious etiology Neutropenia - Hx. neutropenia likely secondary to Hepatitis - Neutropenic precautions Transaminitis Hep C + - Reviewed previous labs - this is the patient's baseline - Pt states chronic hx of Hep C. Was evaluated by GI several years ago and was told she does not have to continue treatment. - Dr. Lincoln will refer patient to GI as outpatient regarding Hepatitis C Schizofrenia / Bipolar Disorder - (Lamictal) 25 mg PO DAILY [facility], Remeron 15mg PO QHS, Trazodone 100mg PO QHS Prophylactic Measures - GI PPX: pepcid - DVT PPX: lovenox - PT eval: home with OT services Disposition: Patient will be discharged today with no oral antibiotics She will go home with home services (OT services). She will follow up with Dr. Casarez in 2 weeks. She will follow up her primary care physician (Dr. Augustin Lincoln) within 1-2 weeks for follow up routine care. All medical management as per Dr. Augustin Lincoln. DW Tabitha Aaron DO PGY2
[2018-01-25] MEDS ORDERED: Saccharomyces Boulardi 250 mg Cap PO SCH (08:00)
[2018-01-25 08:49] LABS: BASO % 1.1 % (0.0-2.0); EOS # 0.2 K/uL (0.0-0.7); EOS % 8.4 % (0.0-4.0); HEMOGLOBIN 11.4 g/dL (11.0-16.0); LYMPH # 1.1 K/uL (1.0-4.3); LYMPH % 50.3 % (20.0-40.0); MEAN CELL VOLUME 86.4 fL (81.0-99.0); MEAN CORPUSCULAR HEMOGLOBIN 28.5 pg (27.0-31.0); MEAN PLATELET VOLUME 8.4 fL (7.2-11.7); MONO # 0.4 K/uL (0.0-0.8); NEUT # 0.5 K/uL (1.8-7.0); NEUT % 22.2 % (50.0-75.0); NRBC % 0.3 % (0.0-2.0); RBC 3.99 Mil/uL (3.80-5.20); RED CELL DISTRIBUTION WIDTH 18.8 % (11.5-14.5); WHITE BLOOD COUNT 2.2 K/uL (4.8-10.8)
[2018-01-25 09:09] VITALS: BP 117/70; PULSE 83; TEMP 97.9; O2SAT 96
[2018-01-25 09:09] LABS: ALB/GLOB RATIO 0.9 (1.0-2.1); ALBUMIN 3.2 g/dL (3.5-5.0); ALT/SGPT 72 U/L (9-52); AST/SGOT 100 U/L (14-36); BLOOD UREA NITROGEN 8 mg/dL (7-17); CALCIUM 8.5 mg/dl (8.6-10.4); GFR NON-AFRICAN AMERICAN > 60
[2018-01-25] MEDS: Enoxaparin 40 mg Syringe SC SCH (09:41)
--- NOTE | 2018-01-25 09:41 | CP.PCM.PN ---
Subjective - Date & Time of Evaluation Date of Evaluation: 01/25/18 Time of Evaluation: 08:15 - Subjective Subjective: clinically same Objective - Vital Signs/Intake and Output Vital Signs (last 24 hours): Temp Pulse Resp BP Pulse Ox 97.9 F 83 20 117/70 96 01/25/18 07:15 01/25/18 07:15 01/25/18 07:15 01/25/18 07:15 01/25/18 07:15 Intake and Output: 01/25/18 01/25/18 06:59 18:59 Intake Total 1120 Balance 1120 - Medications Medications: Current Medications Enoxaparin Sodium (Lovenox) 40 mg SC DAILY [facility] Last Admin: 01/24/18 09:34 Dose: 40 mg Famotidine (Pepcid) 20 mg PO DAILY [facility] Home Med (Paliperidone [Invega]) 3 mg PO BID [facility] Piperacillin Sod/Tazobactam Sod (Zosyn 3.375 Gm Iv Premix) 3.375 gm in 50 mls @ 100 mls/hr IVPB Q8H JOSEFINA PRN Reason: Protocol Last Admin: 01/25/18 08:17 Dose: 100 mls/hr Vancomycin/Sodium Chloride (Vancomycin 1 Gm/Ns 200 Ml) 1 gm in 200 mls @ 133.333 mls/hr IVPB Q24H JOSEFINA PRN Reason: Protocol Stop: 01/31/18 02:01 Lamotrigine (Lamictal) 25 mg PO DAILY [facility] Last Admin: 01/24/18 09:34 Dose: 25 mg Mirtazapine (Remeron) 15 mg PO [facility] Last Admin: 01/24/18 21:06 Dose: 15 mg Saccharomyces Boulardii (Florastor) 250 mg PO Q12H [facility] Last Admin: 01/25/18 08:16 Dose: 250 mg Tramadol HCl (Ultram) 50 mg PO Q6 PRN PRN Reason: Pain, severe (8-10) Last Admin: 01/25/18 06:14 Dose: 50 mg Trazodone HCl (Desyrel) 100 mg PO HS [facility] Last Admin: 01/24/18 21:06 Dose: 100 mg - Labs Labs: 01/25/18 08:32 01/25/18 08:32 PT 13.4 SECONDS (9.7-12.2) H 01/22/18 19:29 INR 1.2 01/22/18 19:29 APTT 33 SECONDS (21-34) 01/22/18 19:29 - Constitutional Appears: Well - Head Exam Head Exam: ATRAUMATIC, NORMAL INSPECTION, NORMOCEPHALIC - Eye Exam Eye Exam: EOMI, Normal appearance, PERRL Pupil Exam: NORMAL ACCOMODATION, PERRL - ENT Exam ENT Exam: Mucous Membranes Moist, Normal Exam - Neck Exam Neck Exam: Full ROM, Normal Inspection. absent: Lymphadenopathy - Respiratory Exam Respiratory Exam: Decreased Breath Sounds - Cardiovascular Exam Cardiovascular Exam: REGULAR RHYTHM, +S1, +S2 - GI/Abdominal Exam GI & Abdominal Exam: Soft, Diminished Bowel Sounds - Rectal Exam Rectal Exam: Deferred Assessment and Plan (1) Arthritis Status: Acute (2) Cellulitis Status: Acute (3) Right leg pain Status: Acute (4) Dog bite of right lower leg with infection Status: Acute (5) Drug abuse Status: Acute (6) Infected dog bite of lower leg Status: Acute (7) Infection of prosthetic right knee joint Status: Acute (8) Knee pain Status: Acute (9) Knee pain, acute Status: Acute (10) Knee sprain Status: Acute (11) Metacarpal bone fracture Status: Acute (12) Neutropenia Status: Acute (13) Pancytopenia Status: Acute (14) Preop cardiovascular exam Status: Acute (15) Prolonged Q-T interval on ECG Status: Acute (16) Prophylactic measure Status: Acute (17) Right medial tibial plateau fracture Status: Acute (18) Status post revision of total replacement of right knee Status: Acute (19) Swelling of right knee joint Status: Acute (20) Tachycardia with heart rate 100-120 beats per minute Status: Acute (21) Tibial plateau fracture, right Status: Acute (22) Transient alteration of awareness Status: Acute (23) UTI (urinary tract infection) Status: Acute (24) Visit for wound check Status: Acute (25) Wound dehiscence Status: Acute (26) Wound dehiscence, surgical Status: Acute (27) Abnormal LFTs Status: Chronic (28) Coagulopathy Status: Chronic (29) Hepatitis C Status: Chronic (30) History of CVA (cerebrovascular accident) Status: Chronic (31) History of heroin abuse Status: Chronic (32) Leukopenia Status: Chronic (33) Schizoaffective disorder Status: Chronic (34) Thrombocytopenia Status: Chronic
--- NOTE | 2018-01-25 14:17 | CP.PCM.PN ---
Subjective - Date & Time of Evaluation Date of Evaluation: 01/25/18 Time of Evaluation: 14:15 - Subjective Subjective: Patient states she has no pain in her knee leg or ankle today in bed or while walking. She denies any new complaints. Review of Systems - Review of Systems All systems: reviewed and no additional remarkable complaints except - Musculoskeletal Musculoskeletal: As Par HPI Objective - Vital Signs/Intake and Output Vital Signs (last 24 hours): Temp Pulse Resp BP Pulse Ox 97.9 F 83 20 117/70 96 01/25/18 07:15 01/25/18 07:15 01/25/18 07:15 01/25/18 07:15 01/25/18 07:15 Intake and Output: 01/25/18 01/25/18 06:59 18:59 Intake Total 1120 Balance 1120 - Medications Medications: Current Medications Enoxaparin Sodium (Lovenox) 40 mg SC DAILY [facility] Last Admin: 01/25/18 09:41 Dose: 40 mg Famotidine (Pepcid) 20 mg PO DAILY [facility] Last Admin: 01/25/18 09:41 Dose: 20 mg Piperacillin Sod/Tazobactam Sod (Zosyn 3.375 Gm Iv Premix) 3.375 gm in 50 mls @ 100 mls/hr IVPB Q8H JOSEFINA PRN Reason: Protocol Last Admin: 01/25/18 08:17 Dose: 100 mls/hr Vancomycin/Sodium Chloride (Vancomycin 1 Gm/Ns 200 Ml) 1 gm in 200 mls @ 133.333 mls/hr IVPB Q24H JOSEFINA PRN Reason: Protocol Stop: 01/31/18 02:01 Lamotrigine (Lamictal) 25 mg PO DAILY [facility] Last Admin: 01/25/18 09:41 Dose: 25 mg Mirtazapine (Remeron) 15 mg PO HS [facility] Last Admin: 01/24/18 21:06 Dose: 15 mg Saccharomyces Boulardii (Florastor) 250 mg PO Q12H [facility] Last Admin: 01/25/18 08:16 Dose: 250 mg Tramadol HCl (Ultram) 50 mg PO Q6 PRN PRN Reason: Pain, severe (8-10) Last Admin: 01/25/18 06:14 Dose: 50 mg Trazodone HCl (Desyrel) [address] [facility] Last Admin: 01/24/18 21:06 Dose: 100 mg - Labs Labs: 01/25/18 08:32 01/25/18 08:32 PT 13.4 SECONDS (9.7-12.2) H 01/22/18 19:29 INR 1.2 01/22/18 19:29 APTT 33 SECONDS (21-34) 01/22/18 19:29 - Constitutional Appears: Well, No Acute Distress - Head Exam Head Exam: ATRAUMATIC - Respiratory Exam Respiratory Exam: NORMAL BREATHING PATTERN - Cardiovascular Exam Additional comments: +DP/PT pulses - Extremities Exam Additional comments: Right knee:incision well healed no erythema full AROM/PROM of right knee without pain, no laxity to varus/valgus/ant drawer non tender to knee/lower leg/foot, then complains of some tenderness to ankle full AROM/PROM of ankle without pain. Not warm. Skin intact, no erythema Calves soft NT neg homans sensation intact RLE - - Neurological Exam Neurological Exam: Alert, Awake, Oriented x3 Neuro motor strength exam: Left Lower Extremity: 5, Right Lower Extremity: 5 - Psychiatric Exam Psychiatric exam: Normal Affect, Normal Mood - Skin Skin Exam: Dry, Intact, Normal Color, Warm Assessment and Plan (1) Right leg pain Assessment & Plan: resolved no suspicion of infection of prosthesis or RLE at this time knee is stable and pain free with ROM and ambulation no pain in ankle with ambulation no further imaging is indicated from orthopedic standpoint orthopedically stable for discharge patient instructed she needs regular follow up with Dr. Casarez in office [phone] within 2 weeks of discharge PT/OT VTE proph d/w Dr. Casarez, agrees with above Status: Acute (2) Status post revision of total replacement of right knee Status: Acute
[2018-01-26] MEDS ORDERED: Vancomycin 1 gm/NS 200 ml 1 GM/200 ML BAG IVPB SCH (02:00)
== END 2018-01-25 15:46 | disposition home health service (06) | DRG 556 ==
LOC: C.ER 18:11 → C.9E 20:31 → C.3T 21:39 → OBSVTOIN 01-24 17:25
PROVIDERS: ADMIT Internal Medicine Nephrology; ATTEND Internal Medicine Nephrology
DX: M25.561 Pain in right knee (principal); N39.0 Urinary tract infection, site not specified; M25.571 Pain in right ankle and joints of right foot; M79.89 Other specified soft tissue disorders; Z96.651 Presence of right artificial knee joint; B18.2 Chronic viral hepatitis C; N18.9 Chronic kidney disease, unspecified; E78.00 Pure hypercholesterolemia, unspecified; F25.9 Schizoaffective disorder, unspecified; F31.9 Bipolar disorder, unspecified; F60.9 Personality disorder, unspecified; G40.909 Epilepsy, unspecified, not intractable, without status epilepticus; I50.9 Heart failure, unspecified; G89.29 Other chronic pain; Z90.49 Acquired absence of other specified parts of digestive tract

== ENCOUNTER 2018-05-12 16:45 | Inpatient (IN) | payer MEDICARE, OTHER ==
[2018-05-12 16:45] VITALS: BMI 26.3
--- NOTE | 2018-05-12 18:07 | RAD ---
Date of service: 05/12/2018 PROCEDURE: Right Ankle Radiographs. HISTORY: fall COMPARISON: None available. FINDINGS: BONES: Normal. No fracture. JOINTS: Normal. No osteoarthritis. Ankle mortise maintained. Talar dome intact SOFT TISSUES: Normal. OTHER FINDINGS: None. IMPRESSION: Normal right ankle radiographs.
--- NOTE | 2018-05-12 18:12 | C.PDOC ---
History Of Present Illness 62 year old female presents to the ED complaining of pain and swelling to the right ankle. Reports she was walking to the bathroom because she has diarrhea when she twisted her ankle. Notes she has a recent right knee replacement surgery. Denies any knee pain, weakness or numbness. Chief Complaint (Nursing): Lower Extremity Problem/Injury History Per: Patient History/Exam Limitations: no limitations Onset/Duration Of Symptoms: Days (1) Current Symptoms Are (Timing): Still Present - Ankle/Foot Description Of Injury: Twisted Past Medical History Reviewed: Historical Data, Nursing Documentation, Vital Signs Vital Signs: Last Vital Signs Temp 98.9 F 05/12/18 16:49 Pulse 123 H 05/12/18 16:49 Resp 20 05/12/18 16:49 BP 127/77 05/12/18 16:49 Pulse Ox 97 05/12/18 16:49 - Medical History PMH: Anxiety, Arthritis (r tkr w/ revisions), Bipolar Disorder, Depression, Gastritis, Gall Bladder Disease (farzana), Personality Disorder, Schizophrenia, Seizures, TIA Denies: Alzheimer's Disease, Asthma, Atrial Fibrillation, Bronchitis, Cardia Arrhythmia, CHF, COPD, Dementia, Emphysema, HIV, HTN, Hypercholesterolemia, Chronic Kidney Disease, Sexually Transmitted Disease Surgical History: Cholecystectomy, (x2) - [facility] Procedures COMPUTER ASSISTED PROCEDURE OF LOWER EXTREMITY (12/14/16) DRAINAGE OF RIGHT KNEE JOINT, PERC ENDO APPROACH, DIAGN (05/28/17) EXCISION OF RIGHT KNEE JOINT, OPEN APPROACH (08/06/17) EXCISION OF RIGHT LOWER LEG MUSCLE, OPEN APPROACH (05/28/17) EXTIRPATION OF MATTER FROM RIGHT KNEE JOINT, OPEN APPROACH (01/07/17) FLUOROSCOPY OF SUPERIOR VENA CAVA, GUIDANCE (04/22/17) INSERTION OF INFUSION DEV INTO SUP VENA CAVA, PERC APPROACH (11/05/17) INSERTION OF SPACER INTO RIGHT KNEE JOINT, OPEN APPROACH (05/28/17) INTRODUCE ANTI-INFLAM IN PERIPH NRV, PLEXI, PERC (08/06/17) INTRODUCE LOCAL ANESTH IN PERIPH NRV, PLEXI, PERC (08/06/17) INTRODUCE OTH ANTI-INFECT IN CENTRAL VEIN, PERC (04/22/17) INTRODUCTION OF OTH ANTI-INFECT INTO JOINT, OPEN APPROACH (04/22/17) PLAIN RADIOGRAPHY OF RIGHT KNEE USING OTHER CONTRAST (05/28/17) RELEASE RIGHT KNEE JOINT, OPEN APPROACH (12/14/16) REMOVAL OF SPACER FROM RIGHT KNEE JOINT, OPEN APPROACH (08/06/17) REMOVAL OF SYNTH SUB FROM R KNEE JT, FEMORAL, OPEN APPROACH (08/06/17) REMOVAL OF SYNTH SUB FROM R KNEE JT, OPEN APPROACH (05/28/17) REMOVAL OF SYNTH SUB FROM R KNEE JT, TIBIAL, OPEN APPROACH (08/06/17) REPAIR RIGHT UPPER LEG TENDON, OPEN APPROACH (01/07/17) REPLACE OF R KNEE JT WITH SYNTH SUB, CEMENT, OPEN APPROACH (12/14/16) REPLACE OF R KNEE JT, FEMORAL WITH SYNTH SUB, OPEN APPROACH (08/06/17) REPLACE OF R KNEE JT, TIBIAL WITH SYNTH SUB, OPEN APPROACH (08/06/17) REPOSITION RIGHT TIBIA, OPEN APPROACH (12/14/16) REVISION OF SYNTH SUB IN R KNEE JT, TIBIAL, OPEN APPROACH (04/22/17) TRANSFUSE NONAUT RED BLOOD CELLS IN PERIPH VEIN, PERC (08/06/17) ULTRASONOGRAPHY OF SUPERIOR VENA CAVA, GUIDANCE (11/05/17) Family History: States: No Known Family Hx - Social History Hx Tobacco Use: No Hx Alcohol Use: No Hx Substance Use: No - Immunization History Hx Tetanus Toxoid Vaccination: No Hx Influenza Vaccination: No Hx Pneumococcal Vaccination: No Review Of Systems Except As Marked, All Systems Reviewed And Found Negative. Gastrointestinal: Positive for: Diarrhea. Negative for: Nausea, Vomiting, Abdominal Pain Musculoskeletal: Positive for: Other (right ankle pain and swelling ) Neurological: Negative for: Weakness, Numbness Physical Exam - Physical Exam Appears: Non-toxic, No Acute Distress Skin: Warm, Dry, No Rash Head: Normacephalic Eye(s): bilateral: Normal Inspection Nose: Normal Oral Mucosa: Moist Cardiovascular: Rhythm Regular Respiratory: Normal Breath Sounds Gastrointestinal/Abdominal: Soft, No Tenderness Extremity: Tenderness (lateral right malleolus ), Capillary Refill (less than 2 sec to right ankle), No Deformity, Swelling (lateral right malleolus ) Neurological/Psych: Oriented x3, Normal Speech ED Course And Treatment ECG Rhythm: Sinus Tachycardia Rate From EC O2 Sat by Pulse Oximetry: 97 (RA) Pulse Ox Interpretation: Normal - Other Rad right ankle xray X-Ray: Viewed By Me, Read By Radiologist Interpretation: Accession No. : [id number]. Patient Name / ID : CASI GEORGE E / [id number]. Exam Date : 05/12/2018 17:27:15 ( Approved ). Study Comment : Sex / Age : F / 62Y. Creator : Oliverio Reddy MD. Dictator : Oliverio Reddy MD. Resistor Winder : Double End Trimmer : Oliverio Reddy MD. Approver2 : Report Date : 05/12/2018 18:03:59. My Comment : . Date of service: 05/12/2018. PROCEDURE: Right Ankle Radiographs. HISTORY: fall. COMPARISON: None available. FINDINGS: BONES: Normal. No fracture. JOINTS: Normal. No osteoarthritis. Ankle mortise maintained. Talar dome intact. SOFT TISSUES: Normal. OTHER FINDINGS: None. IMPRESSION: Normal right ankle radiographs. Progress Note: XR of right ankle ordered. Unremarkable. On reassessment, patient is tachycardic. Spoke with patient about doing work up. Patient treated with fluids. Discussed case with Dr. Harper. Agrees to take over patient's care. Disposition - Disposition Disposition Time: 18:48 Condition: STABLE Additional Instructions: Follow up with PMD and Orthopedist within 1-2 days. Return to ED if feel worse. Instructions: Ankle Sprain (DC) Forms: [employer] (Emirati) - Clinical Impression Clinical Impression: Ankle sprain, Tachycardia - PA / SPRING UPHOLSTERER / Resident Statement MD/DO has reviewed & agrees with the documentation as recorded. - Scribe Statement The provider has reviewed the documentation as recorded by the Sofíaibrom Young All medical record entries made by the Sofíaibrom were at my direction and personally dictated by me. I have reviewed the chart and agree that the record accurately reflects my personal performance of the history, physical exam, medical decision making, and the department course for this patient. I have also personally directed, reviewed, and agree with the discharge instructions and disposition. Physician Patient Turnover Patient Signed Over To: Logan Harper Handoff Comments: Labs, IVF, re-evaluation
[2018-05-12] MEDS ORDERED: Sodium Chloride 0.9% 1,000 ML IV STA (18:43)
[2018-05-12] MEDS ORDERED: Sodium Chloride 0.9% 1,000 ML ONE (18:47)
[2018-05-12 19:55] LABS: BASO # 0.1 K/uL (0.0-0.2); BASO % 0.6 % (0.0-2.0); EOS % 0.4 % (0.0-4.0); LYMPH # 2.4 K/uL (1.0-4.3); LYMPH % 27.6 % (20.0-40.0); MEAN CELL VOLUME 90.7 fL (81.0-99.0); MEAN CORPUSCULAR HGB CONC 33.1 g/dL (33.0-37.0); MEAN PLATELET VOLUME 9.2 fL (7.2-11.7); MONO # 1.2 K/uL (0.0-0.8); MONO % 13.7 % (0.0-10.0); NEUT # 5.1 K/uL (1.8-7.0); NEUT % 57.7 % (50.0-75.0); NRBC % 1.2 % (0.0-2.0); RBC 1.79 Mil/uL (3.80-5.20); RED CELL DISTRIBUTION WIDTH 17.7 % (11.5-14.5); WHITE BLOOD COUNT 8.9 K/uL (4.8-10.8)
[2018-05-12 19:58] LABS: HEMOGLOBIN 5.4 g/dL (11.0-16.0)
[2018-05-12 19:59] LABS: ALBUMIN 2.7 g/dL (3.5-5.0); ALT/SGPT 72 U/L (9-52); AMYLASE 53 U/L (30-110); AST/SGOT 93 U/L (14-36); BLOOD UREA NITROGEN 20 mg/dL (7-17); CALCIUM 7.6 mg/dl (8.6-10.4); GFR NON-AFRICAN AMERICAN > 60; LIPASE 153 U/L (23-300)
[2018-05-12 20:08] LABS: ALBUMIN 2.5 g/dL (3.5-5.0); ALT/SGPT 67 U/L (9-52); AST/SGOT 83 U/L (14-36); BLOOD UREA NITROGEN 19 mg/dL (7-17); CALCIUM 7.4 mg/dl (8.6-10.4); GFR NON-AFRICAN AMERICAN > 60
--- NOTE | 2018-05-12 21:27 | CP.PCM.HP ---
Past Patient History - Infectious Disease Hx of Infectious Diseases: None - Tetanus Immunizations Tetanus Immunization: Unknown - Past Medical History & Family History Past Medical History?: Yes - Past Social History Smoking Status: Never Smoked - CARDIAC Hx Atrial Fibrillation: No Hx Cardia Arrhythmia: No Hx Congestive Heart Failure: No Hx Hypercholesterolemia: No Hx Hypertension: No - PULMONARY Hx Asthma: No Hx Bronchitis: No Hx Chronic Obstructive Pulmonary Disease (COPD): No Hx Emphysema: No - NEUROLOGICAL Hx Alzheimer's Disease: No Hx Dementia: No Hx Seizures: Yes Hx Transient Ischemic Attacks (TIA): Yes - HEENT Hx HEENT Problems: No - RENAL Hx Chronic Kidney Disease: No - ENDOCRINE/METABOLIC Hx Endocrine Disorders: No - HEMATOLOGICAL/ONCOLOGICAL Hx Human Immunodeficiency Virus (HIV): No - INTEGUMENTARY Hx Dermatological Problems: No - MUSCULOSKELETAL/RHEUMATOLOGICAL Hx Arthritis: Yes (r tkr w/ revisions) - GASTROINTESTINAL Hx Gall Bladder Disease: Yes (farzana) Hx Gastritis: Yes - GENITOURINARY/GYNECOLOGICAL Hx Sexually Transmitted Disorders: No - PSYCHIATRIC Hx Anxiety: Yes Hx Bipolar Disorder: Yes Hx Depression: Yes Hx Schizophrenia: Yes Hx Substance Use: No - SURGICAL HISTORY Hx Cholecystectomy: Yes - ANESTHESIA Hx Anesthesia: Yes Hx Anesthesia Reactions: No Meds Allergies/Adverse Reactions: Allergies Allergy/AdvReac Type Severity Reaction Status Date / Time No Known Allergies Allergy Verified 08/06/17 06:43 Physical Exam - Constitutional Appears: Well - Head Exam Head Exam: ATRAUMATIC, NORMAL INSPECTION, NORMOCEPHALIC - Eye Exam Eye Exam: EOMI, Normal appearance, PERRL Pupil Exam: NORMAL ACCOMODATION, PERRL - ENT Exam ENT Exam: Mucous Membranes Moist, Normal Exam - Neck Exam Neck exam: Positive for: Normal Inspection - Respiratory Exam Respiratory Exam: Decreased Breath Sounds - Cardiovascular Exam Cardiovascular Exam: REGULAR RHYTHM, +S1, +S2 - GI/Abdominal Exam GI & Abdominal Exam: Diminished Bowel Sounds, Soft - Rectal Exam Rectal Exam: Deferred Results - Vital Signs Recent Vital Signs: Last Vital Signs Temp 98.9 F 05/12/18 20:35 Pulse 110 H 05/12/18 20:35 Resp 18 05/12/18 20:35 BP 131/68 05/12/18 20:35 Pulse Ox 99 05/12/18 20:35 - Labs Result Diagrams: 05/12/18 19:50 05/12/18 19:50 Labs: Laboratory Results - last 24 hr 12/23/18 12/23/18 12/23/18 18:58 19:43 19:50 WBC 8.9 D RBC 1.79 L Hgb 5.4 L* D Hct 16.2 L MCV 90.7 D MCH 30.0 MCHC 33.1 RDW 17.7 H Plt Count 122 L MPV 9.2 Neut % (Auto) 57.7 Lymph % (Auto) 27.6 Dubois % (Auto) 13.7 H Eos % (Auto) 0.4 Baso % (Auto) 0.6 Neut # (Auto) 5.1 Lymph # (Auto) 2.4 Dubois # (Auto) 1.2 H Eos # (Auto) 0.0 Baso # (Auto) 0.1 Sodium 135 Potassium 3.3 L Chloride 105 Carbon Dioxide 21 L Anion Gap 12 BUN 20 H Creatinine 0.6 L Est GFR ( Amer) > 60 Est GFR (Non-Af Amer) > 60 Random Glucose 127 H Calcium 7.6 L Magnesium 1.8 Total Bilirubin 0.6 AST 93 H ALT 72 H Alkaline Phosphatase 131 H Total Protein 5.4 L Albumin 2.7 L Globulin 2.7 Albumin/Globulin Ratio 1.0 Amylase 53 Lipase 153 Stool Occult Blood Positive H Blood Type Antibody Screen 05/12/18 05/12/18 19:50 19:50 WBC RBC Hgb Hct MCV MCH MCHC RDW Plt Count MPV Neut % (Auto) Lymph % (Auto) Dubois % (Auto) Eos % (Auto) Baso % (Auto) Neut # (Auto) Lymph # (Auto) [place]ois # (Auto) Eos # (Auto) Baso # (Auto) Sodium 135 Potassium 3.1 L Chloride 106 Carbon Dioxide 21 L Anion Gap 11 BUN 19 H Creatinine 0.6 L Est GFR ( Amer) > 60 Est GFR (Non-Af Amer) > 60 Random Glucose 111 H Calcium 7.4 L Magnesium Total Bilirubin 0.6 AST 83 H ALT 67 H Alkaline Phosphatase 115 Total Protein 5.2 L Albumin 2.5 L Globulin 2.6 Albumin/Globulin Ratio 1.0 Amylase Lipase Stool Occult Blood Blood Type O POSITIVE Antibody Screen Negative
[2018-05-12 22:16] LABS: INR 1.4; PROTHROMBIN TIME 15.3 SECONDS (9.7-12.2)
[2018-05-13] MEDS ORDERED: Potassium Chloride 20 mEq ER Tab PO ONE
[2018-05-13] MEDS ORDERED: Pantoprazole 40 mg EC Tab PO SCH (10:00)
--- NOTE | 2018-05-13 10:09 | CP.PCM.CON ---
History of Present Illness - History of Present Illness History of Present Illness: Asked by Dr. Lincoln for a GI consultation on this patient. 62 year old female with history of bipolar disorder, seizure disorder, chronic HCV who presents to hospital following fall. She reports progressive fatigue and dizziness prior to fall with subsequent lower extremity injury. She also reports having dark colored stool for the past 3 days but denies abdominal pain, nausea, vomiting, fever/chills, weight loss, or change in bowel habits. She does admit to daily NSAID use for mouth and lower extremity related pain. No prior endoscopic evaluation. Social history: non-smoker, no ETOH use Family history: reviewed, no history of GI malignancy Review of Systems - Review of Systems Review of Systems: - All other comprehensive 12 point review of systems performed, negative - Constitutional Constitutional: Fatigue - Cardiovascular Cardiovascular: absent: Acrocyanosis, Chest Pain, Chest Pain at Rest, Chest Pain with Activity, Claudication, Diaphoresis, Dyspnea, Dyspnea on Exertion, Edema, Irregular Heart Rhythm, Pain Radiating to Arm/Neck/Jaw, Leg Edema, Leg Ulcers, Lightheadedness, Orthopnea, Palpitations, Paroxysmal Nocturnal Dyspnea, Pedal Edema, Radiating Pain, Rapid Heart Rate, Slow Heart Rate, Syncope, Other - Respiratory Respiratory: absent: Cough, Dyspnea, Hemoptysis, Dyspnea on Exertion, Wheezing, Snoring, Stridor, Pain on Inspiration, Chest Congestion, Excessive Mucous Production, Change in Mucous Color, Pain with Coughing, Other - Gastrointestinal Gastrointestinal: Melena - Musculoskeletal Musculoskeletal: absent: Abnormal Gait, Arthralgias, Atrophy, Back Pain, Deformity, Joint Swelling, Limited Range of Motion, Loss of Height, Muscle Cramps, Muscle Weakness, Myalgias, Neck Pain, Numbness, Radiating Pain into Limb, Stiffness, Tingling, Other - Neurological Neurological: Dizziness Past Patient History - Infectious Disease Hx of Infectious Diseases: None - Tetanus Immunizations Tetanus Immunization: Unknown - Past Medical History & Family History Past Medical History?: Yes - Past Social History Smoking Status: Never Smoked - CARDIAC Hx Atrial Fibrillation: No Hx Cardia Arrhythmia: No Hx Congestive Heart Failure: No Hx Hypercholesterolemia: No Hx Hypertension: No - PULMONARY Hx Asthma: No Hx Bronchitis: No Hx Chronic Obstructive Pulmonary Disease (COPD): No Hx Emphysema: No - NEUROLOGICAL Hx Alzheimer's Disease: No Hx Dementia: No Hx Seizures: Yes Hx Transient Ischemic Attacks (TIA): Yes - HEENT Hx HEENT Problems: No - RENAL Hx Chronic Kidney Disease: No - ENDOCRINE/METABOLIC Hx Endocrine Disorders: No - HEMATOLOGICAL/ONCOLOGICAL Hx Human Immunodeficiency Virus (HIV): No - INTEGUMENTARY Hx Dermatological Problems: No - MUSCULOSKELETAL/RHEUMATOLOGICAL Hx Arthritis: Yes (r tkr w/ revisions) Hx Falls: Yes - GASTROINTESTINAL Hx Gall Bladder Disease: Yes (farzana) Hx Gastritis: Yes - GENITOURINARY/GYNECOLOGICAL Hx Sexually Transmitted Disorders: No - PSYCHIATRIC Hx Anxiety: Yes Hx Bipolar Disorder: Yes Hx Depression: Yes Hx Schizophrenia: Yes Hx Substance Use: No - SURGICAL HISTORY Hx Cholecystectomy: Yes - ANESTHESIA Hx Anesthesia: Yes Hx Anesthesia Reactions: No Meds Allergies/Adverse Reactions: Allergies Allergy/AdvReac Type Severity Reaction Status Date / Time No Known Allergies Allergy Verified 08/06/17 06:43 - Medications Medications: Current Medications Benztropine Mesylate (Cogentin) 1 mg PO BID [facility] Escitalopram Oxalate (Lexapro) 5 mg PO HS [facility] Home Med (Patient's Own Medication) 1 tab PO DAILY [facility] Lamotrigine (Lamictal) 25 mg PO DAILY [facility] Pantoprazole Sodium (Protonix Inj) 40 mg IVP Q12H [facility] Quetiapine Fumarate (Seroquel) 50 mg PO HS [facility] Last Admin: 05/13/18 00:53 Dose: 50 mg Saccharomyces Boulardii (Florastor) 250 mg PO Q12 [facility] Tramadol HCl (Ultram) 50 mg PO Q6 PRN PRN Reason: Pain, severe (8-10) Physical Exam - Constitutional Appears: Non-toxic, No Acute Distress - Head Exam Head Exam: NORMAL INSPECTION - Eye Exam Eye Exam: EOMI, Normal appearance - ENT Exam ENT Exam: Mucous Membranes Moist - Respiratory Exam Respiratory Exam: Clear to Auscultation Bilateral - Cardiovascular Exam Cardiovascular Exam: REGULAR RHYTHM, +S1, +S2 - GI/Abdominal Exam GI & Abdominal Exam: Normal Bowel Sounds, Soft Additional comments: non tender to palpation in four quadrants no palpable hepato/splenomegaly - Extremities Exam Extremities exam: Positive for: normal inspection Additional comments: RLE dressing intact - Neurological Exam Neurological exam: Alert, CN II-XII Intact, Oriented x3, Reflexes Normal - Psychiatric Exam Psychiatric exam: Normal Affect, Normal Mood - Skin Skin Exam: Dry, Normal Color, Warm Additional comments: +tattoos on b/l upper extremities Results - Vital Signs Recent Vital Signs: Last Vital Signs Temp 83 F L 05/13/18 07:21 Pulse 81 05/13/18 08:47 Resp 18 05/13/18 07:21 BP 96/58 L 05/13/18 07:21 Pulse Ox 98 05/13/18 07:21 - Labs Result Diagrams: 05/12/18 19:50 05/12/18 19:50 Labs: Laboratory Results - last 24 hr 05/12/18 05/12/18 05/12/18 18:58 19:43 19:50 WBC 8.9 D RBC 1.79 L Hgb 5.4 L* D Hct 16.2 L MCV 90.7 D MCH 30.0 MCHC 33.1 RDW 17.7 H Plt Count 122 L MPV 9.2 Neut % (Auto) 57.7 Lymph % (Auto) 27.6 Benzie % (Auto) 13.7 H Eos % (Auto) 0.4 Baso % (Auto) 0.6 Neut # (Auto) 5.1 Lymph # (Auto) 2.4 Benzie # (Auto) 1.2 H Eos # (Auto) 0.0 Baso # (Auto) 0.1 PT INR APTT Sodium 135 Potassium 3.3 L Chloride 105 Carbon Dioxide 21 L Anion Gap 12 BUN 20 H Creatinine 0.6 L Est GFR ( Amer) > 60 Est GFR (Non-Af Amer) > 60 Random Glucose 127 H Calcium 7.6 L Magnesium 1.8 Total Bilirubin 0.6 AST 93 H ALT 72 H Alkaline Phosphatase 131 H Total Protein 5.4 L Albumin 2.7 L Globulin 2.7 Albumin/Globulin Ratio 1.0 Amylase 53 Lipase 153 Stool Occult Blood Positive H Blood Type Antibody Screen 05/12/18 05/12/18 05/12/18 19:50 19:50 22:04 WBC RBC Hgb Hct MCV MCH MCHC RDW Plt Count MPV Neut % (Auto) Lymph % (Auto) Benzie % (Auto) Eos % (Auto) Baso % (Auto) Neut # (Auto) Lymph # (Auto) Benzie # (Auto) Eos # (Auto) Baso # (Auto) PT 15.3 H INR 1.4 APTT 28 Sodium 135 Potassium 3.1 L Chloride 106 Carbon Dioxide 21 L Anion Gap 11 BUN 19 H Creatinine 0.6 L Est GFR ( Amer) > 60 Est GFR (Non-Af Amer) > 60 Random Glucose 111 H Calcium 7.4 L Magnesium Total Bilirubin 0.6 AST 83 H ALT 67 H Alkaline Phosphatase 115 Total Protein 5.2 L Albumin 2.5 L Globulin 2.6 Albumin/Globulin Ratio 1.0 Amylase Lipase Stool Occult Blood Blood Type O POSITIVE Antibody Screen Negative Assessment & Plan - Assessment and Plan (Free Text) Assessment: Bipolar disorder Seizure disorder Chronic HCV, transaminitis Anemia, melena Plan: - NPO - Continue to monitor H/H following PRBC transfusion (2 units given) - Continue with PPI therapy - LFTs stable, continue to monitor - Patient would benefit from additional outpatient evaluation of chronic HCV - Plan for EGD today given presentation with profound anemia in setting of chronic NSAID use to rule out peptic ulcer disease
[2018-05-13 10:15] LABS: MEAN CORPUSCULAR HEMOGLOBIN 28.7 pg (27.0-31.0); MEAN CORPUSCULAR HGB CONC 33.5 g/dL (33.0-37.0); MEAN PLATELET VOLUME 8.8 fL (7.2-11.7); RBC 2.56 Mil/uL (3.80-5.20); RED CELL DISTRIBUTION WIDTH 17.3 % (11.5-14.5); WHITE BLOOD COUNT 5.8 K/uL (4.8-10.8)
[2018-05-13] MEDS: Saccharomyces Boulardi 250 mg Cap PO SCH ×2 (10:26→21:20)
[2018-05-13] MEDS ORDERED: Propofol 10 mg/ml Inj (20 ML) ONE ×2 (10:32→10:43)
[2018-05-13] MEDS ORDERED: Midazolam 2 MG/2 ML VIAL ONE (10:32)
[2018-05-13 10:33] LABS: HEMOGLOBIN 7.4 g/dL (11.0-16.0); MEAN CELL VOLUME 85.7 fL (81.0-99.0)
[2018-05-13 10:39] LABS: BLOOD UREA NITROGEN 19 mg/dL (7-17); GFR NON-AFRICAN AMERICAN > 60
[2018-05-13 10:40] LABS: ALB/GLOB RATIO 0.9 (1.0-2.1); ALBUMIN 2.2 g/dL (3.5-5.0); ALT/SGPT 69 U/L (9-52); AST/SGOT 93 U/L (14-36); CALCIUM 7.1 mg/dl (8.6-10.4)
--- NOTE | 2018-05-13 10:46 | RAD ---
Date of service: 05/12/2018 HISTORY: anemia COMPARISON: 11/09/2017 FINDINGS: LUNGS: No active pulmonary disease. PLEURA: No significant pleural effusion identified, no pneumothorax apparent. CARDIOVASCULAR: No atherosclerotic calcification present Normal. OSSEOUS STRUCTURES: No significant abnormalities. VISUALIZED UPPER ABDOMEN: Normal. OTHER FINDINGS: None. IMPRESSION: No active disease.
[2018-05-13] MEDS ORDERED: Pantoprazole 80 MG in Sodium Chloride 0.9% 100 ML IVP SCH (11:00)
[2018-05-13] MEDS: Pantoprazole 80 MG in Sodium Chloride 0.9% 100 ML IVPB SCH ×2 (12:13→21:04)
[2018-05-13] MEDS: Octreotide 1,250 MCG in Dextrose 5% In Water 250 ML IV SCH (12:14)
[2018-05-13] MEDS: PALIPERIDONE 6 MG PO SCH (12:15)
[2018-05-13] MEDS ORDERED: Iodixanol 320 MG/ML 100 ML BOTTLE IV ONE (12:32)
--- NOTE | 2018-05-13 14:00 | CT ---
Date of service: 05/13/2018 PROCEDURE: CT Abdomen with and without intravenous contrast HISTORY: varices on EGD, chronic HCV COMPARISON: None. TECHNIQUE: Axial images of the abdomen from lung bases to iliac crest with and without intravenous contrast enhancement. Coronal and sagittal reformats generated. Oral contrast also administered. Intravenous contrast Dose: 100 cc Visipaque 320. Radiation dose: Total exam DLP = 1693.08 mGy-cm. This CT exam was performed using one or more of the following dose reduction techniques: Automated exposure control, adjustment of the mA and/or kV according to patient size, and/or use of iterative reconstruction technique. FINDINGS: LOWER THORAX: Unremarkable. LIVER: Cirrhotic liver without focal hepatic abnormality. Patent portal venous system is satisfactorily visualized without evidence portal vein thrombosis or the stigmata of portal hypertension. Small venous varicosities identified left upper quadrant. GALLBLADDER AND BILE DUCTS: Unremarkable. PANCREAS: Unremarkable. No gross lesion or ductal dilatation. SPLEEN: Splenomegaly. Orthogonal measurements 13.5 x 7.6 x 9.8. ADRENALS: Unremarkable. No mass. KIDNEYS AND URETERS: Unremarkable. No hydronephrosis. No solid mass. VASCULATURE: Unremarkable. No aortic aneurysm. No aortic atherosclerotic calcification or mural plaque present. BOWEL: Visible portions of the ascending colon display thickened and edematous wall consistent with colitis. Similar findings can be seen in the transverse and visible descending colon. APPENDIX: Normal appendix. PERITONEUM: Moderate volume abdominal ascites primarily about spleen, liver and upper peritoneal cavity. No free air. LYMPH NODES: Unremarkable. No enlarged lymph nodes. BONES: No acute fracture. OTHER FINDINGS: None. IMPRESSION: 1. Cirrhotic liver without focal hepatic abnormality. 2. Mild splenomegaly. 3. Patent portal venous system. 4. Small left upper quadrant venous varicosities. 5. Moderate volume intra-abdominal ascites. 6. Mild pancolitis.
--- NOTE | 2018-05-13 14:36 | CP.PCM.PN ---
Subjective - Date & Time of Evaluation Date of Evaluation: 05/13/18 Time of Evaluation: 08:45 - Subjective Subjective: clinically same Objective - Vital Signs/Intake and Output Vital Signs (last 24 hours): Temp Pulse Resp BP Pulse Ox 98.4 F 83 17 121/70 97 05/13/18 10:57 05/13/18 11:27 05/13/18 11:27 05/13/18 11:27 05/13/18 11:27 Intake and Output: 05/13/18 05/13/18 06:59 18:59 Intake Total 375 1150 Balance 375 1150 - Medications Medications: Current Medications Benztropine Mesylate (Cogentin) 1 mg PO BID [facility] Last Admin: 05/13/18 10:26 Dose: Not Given Escitalopram Oxalate (Lexapro) 5 mg PO HS [facility] Home Med (Patient's Own Medication) 1 tab PO DAILY [facility] Last Admin: 05/13/18 12:15 Dose: 1 tab Octreotide Acetate 1,250 mcg/ (Dextrose) 252.5 mls @ 5.05 mls/hr IV .Q24H [facility]; Protocol Last Admin: 05/13/18 12:14 Dose: 5.05 mls/hr Ceftriaxone Sodium 1 gm/ (Sodium Chloride) 100 mls @ 100 mls/hr IVPB DAILY [facility]; Protocol Last Admin: 05/13/18 12:14 Dose: 100 mls/hr Pantoprazole Sodium 80 mg/ (Sodium Chloride) 100 mls @ 10 mls/hr IVPB .Q10H [facility] Last Admin: 05/13/18 12:13 Dose: 10 mls/hr Lamotrigine (Lamictal) 25 mg PO DAILY [facility] Last Admin: 05/13/18 12:15 Dose: 25 mg Quetiapine Fumarate (Seroquel) 50 mg PO HS [facility] Last Admin: 05/13/18 00:53 Dose: 50 mg Saccharomyces Boulardii (Florastor) 250 mg PO Q12 [facility] Last Admin: 05/13/18 10:26 Dose: Not Given Tramadol HCl (Ultram) 50 mg PO Q6 PRN PRN Reason: Pain, severe (8-10) - Labs Labs: 05/13/18 10:07 05/13/18 10:07 PT 15.3 SECONDS (9.7-12.2) H 05/12/18 22:04 INR 1.4 05/12/18 22:04 APTT 28 SECONDS (21-34) 05/12/18 22:04 - Constitutional Appears: Well - Head Exam Head Exam: ATRAUMATIC, NORMAL INSPECTION, NORMOCEPHALIC - Eye Exam Eye Exam: EOMI, Normal appearance, PERRL Pupil Exam: NORMAL ACCOMODATION, PERRL - ENT Exam ENT Exam: Mucous Membranes Moist, Normal Exam - Neck Exam Neck Exam: Full ROM, Normal Inspection. absent: Lymphadenopathy - Respiratory Exam Respiratory Exam: Decreased Breath Sounds - Cardiovascular Exam Cardiovascular Exam: REGULAR RHYTHM, +S1, +S2 - GI/Abdominal Exam GI & Abdominal Exam: Soft, Diminished Bowel Sounds - Rectal Exam Rectal Exam: Deferred
[2018-05-14 07:13] LABS: BASO % 0.6 % (0.0-2.0); EOS # 0.2 K/uL (0.0-0.7); EOS % 6.4 % (0.0-4.0); HEMOGLOBIN 7.1 g/dL (11.0-16.0); LYMPH # 0.8 K/uL (1.0-4.3); LYMPH % 24.7 % (20.0-40.0); MEAN CELL VOLUME 87.3 fL (81.0-99.0); MEAN CORPUSCULAR HGB CONC 33.2 g/dL (33.0-37.0); MONO # 0.4 K/uL (0.0-0.8); MONO % 12.7 % (0.0-10.0); NEUT # 1.9 K/uL (1.8-7.0); NEUT % 55.6 % (50.0-75.0); NRBC % 0.2 % (0.0-2.0); RBC 2.44 Mil/uL (3.80-5.20); WHITE BLOOD COUNT 3.4 K/uL (4.8-10.8)
[2018-05-14 07:42] LABS: ALB/GLOB RATIO 0.9 (1.0-2.1); ALBUMIN 2.1 g/dL (3.5-5.0); ALT/SGPT 102 U/L (9-52); AST/SGOT 139 U/L (14-36); BLOOD UREA NITROGEN 12 mg/dL (7-17); GFR NON-AFRICAN AMERICAN > 60
[2018-05-14] MEDS: Pantoprazole 80 MG in Sodium Chloride 0.9% 100 ML IVPB SCH ×3 (08:05→18:06)
[2018-05-14] MEDS: Octreotide 1,250 MCG in Dextrose 5% In Water 250 ML IV SCH (11:02)
[2018-05-14] MEDS: Saccharomyces Boulardi 250 mg Cap PO SCH ×2 (11:03→22:09)
[2018-05-14] MEDS: PALIPERIDONE 6 MG PO SCH (11:03)
--- NOTE | 2018-05-14 12:59 | CP.PCM.PN ---
Subjective - Date & Time of Evaluation Date of Evaluation: 05/14/18 Time of Evaluation: 12:55 - Subjective Subjective: Patient seen and examined, resting in bed comfortably. No acute events overnight, she reports mild epigastric discomfort but otherwise denies nausea, vomiting, fever/chills. Tolerating PO clear liquids without difficulty. Review of vitals from today are normal. 12 point review of systems performed, negative aside from mentioned above. Objective - Vital Signs/Intake and Output Vital Signs (last 24 hours): Temp Pulse Resp BP Pulse Ox 98.1 F 82 20 103/67 95 05/14/18 07:15 05/14/18 07:15 05/14/18 07:15 05/14/18 07:15 05/14/18 07:15 Intake and Output: 05/14/18 05/14/18 06:59 18:59 Intake Total 91.4 Balance 91.4 - Medications Medications: Current Medications Benztropine Mesylate (Cogentin) 1 mg PO BID [facility] Last Admin: 05/14/18 11:01 Dose: 1 mg Escitalopram Oxalate (Lexapro) 5 mg PO HS [facility] Last Admin: 05/13/18 21:20 Dose: 5 mg Home Med (Patient's Own Medication) 1 tab PO DAILY [facility] Last Admin: 05/14/18 11:03 Dose: 1 tab Octreotide Acetate 1,250 mcg/ (Dextrose) 252.5 mls @ 5.05 mls/hr IV .Q24H [facility]; Protocol Last Admin: 05/14/18 11:02 Dose: Not Given Ceftriaxone Sodium 1 gm/ (Sodium Chloride) 100 mls @ 100 mls/hr IVPB DAILY [facility]; Protocol Last Admin: 05/14/18 11:01 Dose: 100 mls/hr Pantoprazole Sodium 80 mg/ (Sodium Chloride) 100 mls @ 10 mls/hr IVPB .Q10H [facility] Last Admin: 05/14/18 08:05 Dose: Not Given Lamotrigine (Lamictal) 25 mg PO DAILY [facility] Last Admin: 05/14/18 11:01 Dose: 25 mg Quetiapine Fumarate (Seroquel) 50 mg PO HS [facility] Last Admin: 05/13/18 21:20 Dose: 50 mg Saccharomyces Boulardii (Florastor) 250 mg PO Q12 [facility] Last Admin: 05/14/18 11:03 Dose: 250 mg Tramadol HCl (Ultram) 50 mg PO Q6 PRN PRN Reason: Pain, severe (8-10) Last Admin: 05/13/18 18:13 Dose: 50 mg - Labs Labs: 05/14/18 06:57 05/14/18 06:57 PT 15.3 SECONDS (9.7-12.2) H 05/12/18 22:04 INR 1.4 05/12/18 22:04 APTT 28 SECONDS (21-34) 05/12/18 22:04 - Constitutional Appears: Non-toxic, No Acute Distress - Head Exam Head Exam: NORMAL INSPECTION - Eye Exam Eye Exam: EOMI, Normal appearance - ENT Exam ENT Exam: Mucous Membranes Moist - Respiratory Exam Respiratory Exam: Clear to Ausculation Bilateral - Cardiovascular Exam Cardiovascular Exam: +S1, +S2 - GI/Abdominal Exam GI & Abdominal Exam: Soft, Normal Bowel Sounds Additional comments: non tender to palpation in four quadrants - Extremities Exam Extremities Exam: Normal Inspection - Skin Skin Exam: Dry, Intact, Normal Color, Warm Assessment and Plan - Assessment and Plan (Free Text) Assessment: Decompensated HCV cirrhosis Anemia Esophageal varices s/p band ligation therapy Bipolar disorder Seizure disorder CT liver reviewed by me showing cirrhotic liver without presence of mass lesion, +moderate abdominal ascites Plan: - Advance to full liquid diet as tolerated - H/H stable, continue to monitor and avoid over-transfusion of blood products - Continue with PPI and octreotide infusion therapy for additional 24 hours - LFTs stable, continue to monitor - Continue with antibiotic therapy to complete 5 day course - Given presence of ascites, suggest diagnostic paracentesis - Will continue to monitor patient clinical course
--- NOTE | 2018-05-14 20:22 | CP.PCM.PN ---
Subjective - Date & Time of Evaluation Date of Evaluation: 05/14/18 Time of Evaluation: 08:00 - Subjective Subjective: clinically same Objective - Vital Signs/Intake and Output Vital Signs (last 24 hours): Temp Pulse Resp BP Pulse Ox 98.0 F 89 20 116/74 96 05/14/18 15:00 05/14/18 18:00 05/14/18 15:00 05/14/18 15:00 05/14/18 15:00 - Medications Medications: Current Medications Benztropine Mesylate (Cogentin) 1 mg PO BID [facility] Last Admin: 05/14/18 18:04 Dose: 1 mg Escitalopram Oxalate (Lexapro) 5 mg PO HS [facility] Last Admin: 05/13/18 21:20 Dose: 5 mg Home Med (Patient's Own Medication) 1 tab PO DAILY [facility] Last Admin: 05/14/18 11:03 Dose: 1 tab Octreotide Acetate 1,250 mcg/ (Dextrose) 252.5 mls @ 5.05 mls/hr IV .Q24H [facility]; Protocol Last Admin: 05/14/18 11:02 Dose: Not Given Ceftriaxone Sodium 1 gm/ (Sodium Chloride) 100 mls @ 100 mls/hr IVPB DAILY [facility]; Protocol Last Admin: 05/14/18 11:01 Dose: 100 mls/hr Pantoprazole Sodium 80 mg/ (Sodium Chloride) 100 mls @ 10 mls/hr IVPB .Q10H [facility] Last Admin: 05/14/18 18:06 Dose: Not Given Lamotrigine (Lamictal) 25 mg PO DAILY [facility] Last Admin: 05/14/18 11:01 Dose: 25 mg Quetiapine Fumarate (Seroquel) 50 mg PO HS [facility] Last Admin: 05/13/18 21:20 Dose: 50 mg Saccharomyces Boulardii (Florastor) 250 mg PO Q12 [facility] Last Admin: 05/14/18 11:03 Dose: 250 mg Tramadol HCl (Ultram) 50 mg PO Q6 PRN PRN Reason: Pain, severe (8-10) Last Admin: 05/13/18 18:13 Dose: 50 mg - Labs Labs: 05/14/18 06:57 05/14/18 06:57 PT 15.3 SECONDS (9.7-12.2) H 05/12/18 22:04 INR 1.4 05/12/18 22:04 APTT 28 SECONDS (21-34) 05/12/18 22:04 - Constitutional Appears: Well - Head Exam Head Exam: ATRAUMATIC, NORMAL INSPECTION, NORMOCEPHALIC - Eye Exam Eye Exam: EOMI, Normal appearance, PERRL Pupil Exam: NORMAL ACCOMODATION, PERRL - ENT Exam ENT Exam: Mucous Membranes Moist, Normal Exam - Neck Exam Neck Exam: Full ROM, Normal Inspection. absent: Lymphadenopathy - Respiratory Exam Respiratory Exam: Decreased Breath Sounds - Cardiovascular Exam Cardiovascular Exam: REGULAR RHYTHM, +S1, +S2 - GI/Abdominal Exam GI & Abdominal Exam: Soft, Diminished Bowel Sounds - Rectal Exam Rectal Exam: Deferred
[2018-05-15] MEDS: Pantoprazole 80 MG in Sodium Chloride 0.9% 100 ML IVPB SCH ×3 (02:36→13:02)
[2018-05-15] MEDS: Saccharomyces Boulardi 250 mg Cap PO SCH ×2 (10:03→21:30)
[2018-05-15] MEDS ORDERED: Lidocaine Hydrochloride 5 ML INJ ONE (10:19)
[2018-05-15 11:37] LABS: BODY FLUID TYPE PERITONEAL/ASCITES
--- NOTE | 2018-05-15 11:37 | CP.PCM.PN ---
<LarisaKlaudia ozunamichelle - Last Filed: 05/15/18 11:40> Subjective - Date & Time of Evaluation Date of Evaluation: 05/15/18 Time of Evaluation: 08:30 - Subjective Subjective: PGY-4 GI Fellow Prog Note Pt lying in bed when seen this AM. States she is doing well and minor abd pain continues to improve. No BM in 48 hrs. Eager for paracentesis today. 5 point ROS negative other than stated above Objective - Vital Signs/Intake and Output Vital Signs (last 24 hours): Temp Pulse Resp BP Pulse Ox 97.4 F L 79 20 96/96 H 93 L 05/15/18 07:00 05/15/18 07:42 05/15/18 07:00 05/15/18 07:00 05/15/18 07:00 Intake and Output: 05/15/18 05/15/18 06:59 18:59 Intake Total 620 Balance 620 - Medications Medications: Current Medications Benztropine Mesylate (Cogentin) 1 mg PO BID [facility] Last Admin: 05/15/18 10:03 Dose: Not Given Escitalopram Oxalate (Lexapro) 5 mg PO [facility] Last Admin: 05/14/18 22:09 Dose: 5 mg Furosemide (Lasix) 40 mg PO DAILY [facility] Home Med (Patient's Own Medication) 1 tab PO DAILY [facility] Last Admin: 05/14/18 11:03 Dose: 1 tab Octreotide Acetate 1,250 mcg/ (Dextrose) 252.5 mls @ 5.05 mls/hr IV .Q24H [facility]; Protocol Last Admin: 05/14/18 11:02 Dose: Not Given Ceftriaxone Sodium 1 gm/ (Sodium Chloride) 100 mls @ 100 mls/hr IVPB DAILY [facility]; Protocol Last Admin: 05/14/18 11:01 Dose: 100 mls/hr Pantoprazole Sodium 80 mg/ (Sodium Chloride) 100 mls @ 10 mls/hr IVPB .Q10H [facility] Last Admin: 05/15/18 03:24 Dose: Not Given Lamotrigine (Lamictal) 25 mg PO DAILY [facility] Last Admin: 05/14/18 11:01 Dose: 25 mg Quetiapine Fumarate (Seroquel) 50 mg PO HS [facility] Last Admin: 05/14/18 22:09 Dose: 50 mg Saccharomyces Boulardii (Florastor) 250 mg PO Q12 [facility] Last Admin: 05/15/18 10:03 Dose: Not Given Spironolactone (Aldactone) 100 mg PO DAILY [facility] Tramadol HCl (Ultram) 50 mg PO Q6 PRN PRN Reason: Pain, severe (8-10) Last Admin: 05/14/18 22:10 Dose: 50 mg - Labs Labs: 05/14/18 06:57 05/14/18 06:57 PT 15.3 SECONDS (9.7-12.2) H 05/12/18 22:04 INR 1.4 05/12/18 22:04 APTT 28 SECONDS (21-34) 05/12/18 22:04 - Constitutional Appears: Well, No Acute Distress - Head Exam Head Exam: ATRAUMATIC, NORMAL INSPECTION - Eye Exam Eye Exam: EOMI. absent: Scleral icterus - ENT Exam ENT Exam: Mucous Membranes Moist. absent: Mucous Membranes Dry - Respiratory Exam Respiratory Exam: NORMAL BREATHING PATTERN. absent: Accessory Muscle Use - GI/Abdominal Exam GI & Abdominal Exam: Distended (mildly), Soft, Normal Bowel Sounds. absent: Bruit, Firm, Guarding, Rigid, Tenderness, Mass, Organomegaly, Pulsatile Mass, Rebound Additional comments: + flank fullness, + shifting dullness Assessment and Plan - Assessment and Plan (Free Text) Assessment: # Decompensated HCV cirrhosis: MELD-Na 14 on admission. - Esophageal varices: s/p band ligation therapy on 05/13 - Ascites: Moderate on CT and pt with reported weight gain. Not on diuretics as OP and never had paracentesis. - HCC Screen: No masses seen on triple phase CT 05/13 - HE: None apparent at this time # Anemia: Improved post-transfusion. Stable # Bipolar disorder # Seizure disorder Plan: - Paracentesis today with cell count, ascites albumin and ascites total protein - H/H stable, continue to monitor and avoid over-transfusion of blood products - Continue with PPI and octreotide infusion therapy for additional 24 hours (complete on 05/16) - LFTs stable, continue to monitor - Continue with antibiotic therapy to complete 5 day course - Soft, low Na diet - Plan to start Spironolactone 100 mg, Furosemide 40 mg daily on 05/16 - Will need f/u EGD in ~ 8 weeks - Will continue to monitor patient clinical course Pt seen and examined with Dr. Green; please see attestation for further details/changes. Camilo Pal, PGY-4 <Carlo Green - Last Filed: 05/15/18 13:14> Objective - Vital Signs/Intake and Output Vital Signs (last 24 hours): Temp Pulse Resp BP Pulse Ox 97.9 F 75 20 111/68 100 05/15/18 11:40 05/15/18 11:40 05/15/18 11:40 05/15/18 11:40 05/15/18 11:40 Intake and Output: 05/15/18 05/15/18 06:59 18:59 Intake Total 620 Balance 620 - Medications Medications: Current Medications Benztropine Mesylate (Cogentin) 1 mg PO BID [facility] Last Admin: 05/15/18 10:03 Dose: Not Given Escitalopram Oxalate (Lexapro) 5 mg PO HS [facility] Last Admin: 05/14/18 22:09 Dose: 5 mg Furosemide (Lasix) 40 mg PO DAILY [facility] Home Med (Patient's Own Medication) 1 tab PO DAILY [facility] Last Admin: 05/15/18 11:41 Dose: 1 tab Octreotide Acetate 1,250 mcg/ (Dextrose) 252.5 mls @ 5.05 mls/hr IV .Q24H [facility]; Protocol Last Admin: 05/15/18 12:45 Dose: 5.05 mls/hr Ceftriaxone Sodium 1 gm/ (Sodium Chloride) 100 mls @ 100 mls/hr IVPB DAILY [facility]; Protocol Last Admin: 05/15/18 11:40 Dose: 100 mls/hr Pantoprazole Sodium 80 mg/ (Sodium Chloride) 100 mls @ 10 mls/hr IVPB .Q10H [facility] Last Admin: 05/15/18 13:02 Dose: 10 mls/hr Lamotrigine (Lamictal) 25 mg PO DAILY [facility] Last Admin: 05/15/18 11:41 Dose: 25 mg Quetiapine Fumarate (Seroquel) 50 mg PO HS [facility] Last Admin: 05/14/18 22:09 Dose: 50 mg Saccharomyces Boulardii (Florastor) 250 mg PO Q12 [facility] Last Admin: 05/15/18 10:03 Dose: Not Given Spironolactone (Aldactone) 100 mg PO DAILY [facility] Tramadol HCl (Ultram) 50 mg PO Q6 PRN PRN Reason: Pain, severe (8-10) Last Admin: 05/14/18 22:10 Dose: 50 mg - Labs Labs: 05/14/18 06:57 05/14/18 06:57 PT 15.3 SECONDS (9.7-12.2) H 05/12/18 22:04 INR 1.4 05/12/18 22:04 APTT 28 SECONDS (21-34) 05/12/18 22:04 Attending/Attestation - Attestation I have personally seen and examined this patient.: Yes I have fully participated in the care of the patient.: Yes I have reviewed all pertinent clinical information, including history, physical exam and plan: Yes Notes (Text): 05/15/18 13:11 I have seen and examined patient with GI fellow. No acute events overnight, she denies abdominal pain, nausea, vomiting, fever/chills. Tolerating PO liquids without difficulty. s/p paracentesis today with 700 cc fluid removed. No bowel movements over past 24 hours. Decompensated HCV cirrhosis Anemia s/p EGD showing esophageal varices s/p band ligation Ascites s/p paracentesis - Low sodium soft diet as tolerated - Continue to monitor H/H - Continue with octreotide and PPI infusion therapy for additional 24 hours - Begin low dose diuretic therapy and monitor electrolytes - Follow up ascitic fluid studies - Continue with antibiotics to complete 5 day course - Patient will require repeat EGD in 2 months for variceal surveillance, will continue to monitor patient clinical course
[2018-05-15] MEDS: PALIPERIDONE 6 MG PO SCH (11:41)
--- NOTE | 2018-05-15 12:17 | PCM.SURG1 ---
Surgeon's Initial Post Op Note - Surgeon's Notes Surgeon: Modesto Gomez Bath Mixer: None Type of Anesthesia: Local Pre-Operative Diagnosis: CIrrhosis, ascites Operative Findings: US showed small amount of ascites, cirrhosis Post-Operative Diagnosis: Cirrhosis, ascites Operation Performed: US guided paracentesis Specimen/Specimens Removed: 700 cc of clear fluid Estimated Blood Loss: EBL {In ML}: 0 Blood Products Given: N/A Drains Used: No Drains Post-Op Condition: Fair Date of Surgery/Procedure: 05/15/18 Time of Surgery/Procedure: 11:30
[2018-05-15 12:23] LABS: BF GROSS APPEARANCE CLEAR (CLEAR); BODY FLUID MONO/MACROPHAGE 12 % (0-0)
[2018-05-15 12:24] LABS: BODY FLUID TOTAL COUNT 100 (0-0)
[2018-05-15] MEDS: Octreotide 1,250 MCG in Dextrose 5% In Water 250 ML IV SCH (12:45)
[2018-05-15 14:08] LABS: HEMOGLOBIN 7.2 g/dL (11.0-16.0); MEAN CELL VOLUME 88.1 fL (81.0-99.0); MEAN CORPUSCULAR HEMOGLOBIN 28.9 pg (27.0-31.0); MEAN CORPUSCULAR HGB CONC 32.8 g/dL (33.0-37.0); MEAN PLATELET VOLUME 8.5 fL (7.2-11.7); RBC 2.48 Mil/uL (3.80-5.20); RED CELL DISTRIBUTION WIDTH 18.4 % (11.5-14.5); WHITE BLOOD COUNT 2.8 K/uL (4.8-10.8)
[2018-05-15 14:44] LABS: ALB/GLOB RATIO 0.8 (1.0-2.1); ALBUMIN 2.2 g/dL (3.5-5.0); ALT/SGPT 123 U/L (9-52); AST/SGOT 156 U/L (14-36); BLOOD UREA NITROGEN 10 mg/dL (7-17); CALCIUM 6.8 mg/dl (8.6-10.4); GFR NON-AFRICAN AMERICAN > 60
--- NOTE | 2018-05-15 15:41 | CP.PCM.PN ---
Subjective - Date & Time of Evaluation Date of Evaluation: 05/15/18 Time of Evaluation: 08:30 - Subjective Subjective: clinically same Objective - Vital Signs/Intake and Output Vital Signs (last 24 hours): Temp Pulse Resp BP Pulse Ox 97.9 F 75 20 111/68 100 05/15/18 11:40 05/15/18 11:40 05/15/18 11:40 05/15/18 11:40 05/15/18 11:40 Intake and Output: 05/15/18 05/15/18 06:59 18:59 Intake Total 620 Balance 620 - Medications Medications: Current Medications Benztropine Mesylate (Cogentin) 1 mg PO BID [facility] Last Admin: 05/15/18 10:03 Dose: Not Given Escitalopram Oxalate (Lexapro) 5 mg PO HS [facility] Last Admin: 05/14/18 22:09 Dose: 5 mg Furosemide (Lasix) 40 mg PO DAILY [facility] Home Med (Patient's Own Medication) 1 tab PO DAILY [facility] Last Admin: 05/15/18 11:41 Dose: 1 tab Octreotide Acetate 1,250 mcg/ (Dextrose) 252.5 mls @ 5.05 mls/hr IV .Q24H [facility]; Protocol Last Admin: 05/15/18 12:45 Dose: 5.05 mls/hr Ceftriaxone Sodium 1 gm/ (Sodium Chloride) 100 mls @ 100 mls/hr IVPB DAILY [facility]; Protocol Last Admin: 05/15/18 11:40 Dose: 100 mls/hr Pantoprazole Sodium 80 mg/ (Sodium Chloride) 100 mls @ 10 mls/hr IVPB .Q10H [facility] Last Admin: 05/15/18 13:02 Dose: 10 mls/hr Lamotrigine (Lamictal) 25 mg PO DAILY [facility] Last Admin: 05/15/18 11:41 Dose: 25 mg Quetiapine Fumarate (Seroquel) 50 mg PO HS [facility] Last Admin: 05/14/18 22:09 Dose: 50 mg Saccharomyces Boulardii (Florastor) 250 mg PO Q12 [facility] Last Admin: 05/15/18 10:03 Dose: Not Given Spironolactone (Aldactone) 100 mg PO DAILY [facility] Tramadol HCl (Ultram) 50 mg PO Q6 PRN PRN Reason: Pain, severe (8-10) Last Admin: 05/14/18 22:10 Dose: 50 mg - Labs Labs: 05/15/18 14:00 05/15/18 14:00 PT 15.3 SECONDS (9.7-12.2) H 05/12/18 22:04 INR 1.4 05/12/18 22:04 APTT 28 SECONDS (21-34) 05/12/18 22:04 - Constitutional Appears: Well - Head Exam Head Exam: ATRAUMATIC, NORMAL INSPECTION, NORMOCEPHALIC - Eye Exam Eye Exam: EOMI, Normal appearance, PERRL Pupil Exam: NORMAL ACCOMODATION, PERRL - ENT Exam ENT Exam: Mucous Membranes Moist, Normal Exam - Neck Exam Neck Exam: Full ROM, Normal Inspection. absent: Lymphadenopathy - Respiratory Exam Respiratory Exam: Decreased Breath Sounds - Cardiovascular Exam Cardiovascular Exam: REGULAR RHYTHM, +S1, +S2 - GI/Abdominal Exam GI & Abdominal Exam: Soft, Diminished Bowel Sounds - Rectal Exam Rectal Exam: Deferred
[2018-05-16 00:25] VITALS: RESP 20
[2018-05-16 07:33] LABS: HEMOGLOBIN 7.3 g/dL (11.0-16.0); MEAN CELL VOLUME 88.3 fL (81.0-99.0); MEAN CORPUSCULAR HGB CONC 32.9 g/dL (33.0-37.0); MEAN PLATELET VOLUME 8.8 fL (7.2-11.7); RBC 2.51 Mil/uL (3.80-5.20); WHITE BLOOD COUNT 2.9 K/uL (4.8-10.8)
[2018-05-16 07:56] LABS: ALB/GLOB RATIO 0.9 (1.0-2.1); ALBUMIN 2.3 g/dL (3.5-5.0); ALT/SGPT 121 U/L (9-52); AST/SGOT 149 U/L (14-36); BLOOD UREA NITROGEN 9 mg/dL (7-17); CALCIUM 7.3 mg/dl (8.6-10.4); GFR NON-AFRICAN AMERICAN > 60
--- NOTE | 2018-05-16 08:28 | CP.PCM.PN ---
<Camilo Pal - Last Filed: 05/16/18 08:25> Subjective - Date & Time of Evaluation Date of Evaluation: 05/16/18 Time of Evaluation: 07:15 - Subjective Subjective: PGY-4 GI Fellow Prog Note Pt lying in bed when seen this AM. States she continues to feel overall better than day prior. She is tolerating soft diet and asking to be advanced. States no BM in 48 hrs, though she attributes that to not eating much solid food, d enied abd pain and constipation. 5 point ROS negative other than stated above Objective - Vital Signs/Intake and Output Vital Signs (last 24 hours): Temp Pulse Resp BP Pulse Ox 97.4 F L 89 20 96/63 L 98 05/16/18 07:07 05/16/18 07:07 05/16/18 07:07 05/16/18 07:07 05/16/18 07:07 Intake and Output: 05/16/18 05/16/18 06:59 18:59 Intake Total 350 Balance 350 - Medications Medications: Current Medications Benztropine Mesylate (Cogentin) 1 mg PO BID [facility] Last Admin: 05/15/18 17:39 Dose: 1 mg Escitalopram Oxalate (Lexapro) 5 mg PO [facility] Last Admin: 05/15/18 21:30 Dose: 5 mg Furosemide (Lasix) 40 mg PO DAILY [facility] Home Med (Patient's Own Medication) 1 tab PO DAILY [facility] Last Admin: 05/15/18 11:41 Dose: 1 tab Octreotide Acetate 1,250 mcg/ (Dextrose) 252.5 mls @ 5.05 mls/hr IV .Q24H [facility]; Protocol Last Admin: 05/15/18 12:45 Dose: 5.05 mls/hr Ceftriaxone Sodium 1 gm/ (Sodium Chloride) 100 mls @ 100 mls/hr IVPB DAILY [facility]; Protocol Last Admin: 05/15/18 11:40 Dose: 100 mls/hr Pantoprazole Sodium 80 mg/ (Sodium Chloride) 100 mls @ 10 mls/hr IVPB .Q10H [facility] Last Admin: 05/15/18 13:02 Dose: 10 mls/hr Lamotrigine (Lamictal) 25 mg PO DAILY [facility] Last Admin: 05/15/18 11:41 Dose: 25 mg Quetiapine Fumarate (Seroquel) 50 mg PO HS [facility] Last Admin: 05/15/18 21:30 Dose: 50 mg Saccharomyces Boulardii (Florastor) 250 mg PO Q12 [facility] Last Admin: 05/15/18 21:30 Dose: 250 mg Spironolactone (Aldactone) 100 mg PO DAILY [facility] Tramadol HCl (Ultram) 50 mg PO Q6 PRN PRN Reason: Pain, severe (8-10) Last Admin: 05/14/18 22:10 Dose: 50 mg - Labs Labs: 05/16/18 07:25 05/16/18 07:25 PT 15.3 SECONDS (9.7-12.2) H 05/12/18 22:04 INR 1.4 05/12/18 22:04 APTT 28 SECONDS (21-34) 05/12/18 22:04 - Constitutional Appears: Well, No Acute Distress - Head Exam Head Exam: ATRAUMATIC, NORMAL INSPECTION - Eye Exam Eye Exam: EOMI. absent: Scleral icterus - ENT Exam ENT Exam: Mucous Membranes Moist. absent: Mucous Membranes Dry - Respiratory Exam Respiratory Exam: NORMAL BREATHING PATTERN. absent: Accessory Muscle Use - GI/Abdominal Exam GI & Abdominal Exam: Soft, Normal Bowel Sounds. absent: Bruit, Distended, Firm, Guarding, Rigid, Tenderness, Mass, Organomegaly, Pulsatile Mass, Rebound Assessment and Plan - Assessment and Plan (Free Text) Assessment: # Decompensated HCV cirrhosis: MELD-Na 14 on admission. - Esophageal varices: Large, non-bleeding. s/p band ligation therapy on 05/13 - Ascites: Moderate on CT and pt with reported weight gain. Not on diuretics as OP and never had paracentesis. - HCC Screen: No masses seen on triple phase CT 05/13 - HE: None apparent at this time # Anemia: Improved post-transfusion. Stable # Bipolar disorder # Seizure disorder Plan: - Paracentesis with 700 cc removed, SBP negative on 05/15 --- Await ascites albumin and ascites total protein, can be f/u as outpatient - Continue with PPI and octreotide infusion therapy completing this afternoon - PO PPI x 8 weeks - Continue with antibiotic therapy to complete 5 day course - Cont Spironolactone 100 mg, Furosemide 40 mg daily; started 05/16 - Low Na diet - Will need f/u EGD in ~ 8 weeks - If continues to tolerate diet, can plan on DC later today after completing infusions Pt seen and examined with Dr. Green; please see attestation for further deta ils/changes. Camilo Pal, PGY-4 <Carlo Green - Last Filed: 05/16/18 09:38> Objective - Vital Signs/Intake and Output Vital Signs (last 24 hours): Temp Pulse Resp BP Pulse Ox 97.4 F L 87 20 96/63 L 98 05/16/18 07:07 05/16/18 07:50 05/16/18 07:07 05/16/18 07:07 05/16/18 07:07 Intake and Output: 05/16/18 05/16/18 06:59 18:59 Intake Total 350 Balance 350 - Medications Medications: Current Medications Benztropine Mesylate (Cogentin) 1 mg PO BID [facility] Last Admin: 05/15/18 17:39 Dose: 1 mg Escitalopram Oxalate (Lexapro) 5 mg PO HS [facility] Last Admin: 05/15/18 21:30 Dose: 5 mg Furosemide (Lasix) 40 mg PO DAILY [facility] Home Med (Patient's Own Medication) 1 tab PO DAILY [facility] Last Admin: 05/15/18 11:41 Dose: 1 tab Ceftriaxone Sodium 1 gm/ (Sodium Chloride) 100 mls @ 100 mls/hr IVPB DAILY [facility]; Protocol Last Admin: 05/15/18 11:40 Dose: 100 mls/hr Lamotrigine (Lamictal) 25 mg PO DAILY [facility] Last Admin: 05/15/18 11:41 Dose: 25 mg Pantoprazole Sodium (Protonix Ec Tab) 40 mg PO DAILY [facility] Quetiapine Fumarate (Seroquel) 50 mg PO HS [facility] Last Admin: 05/15/18 21:30 Dose: 50 mg Saccharomyces Boulardii (Florastor) 250 mg PO Q12 [facility] Last Admin: 05/15/18 21:30 Dose: 250 mg Spironolactone (Aldactone) 100 mg PO DAILY [facility] Tramadol HCl (Ultram) 50 mg PO Q6 PRN PRN Reason: Pain, severe (8-10) Last Admin: 05/14/18 22:10 Dose: 50 mg - Labs Labs: 05/16/18 07:25 05/16/18 07:25 PT 15.3 SECONDS (9.7-12.2) H 12/23/18 22:04 INR 1.4 05/12/18 22:04 APTT 28 SECONDS (21-34) 05/12/18 22:04 Attending/Attestation - Attestation I have personally seen and examined this patient.: Yes I have fully participated in the care of the patient.: Yes I have reviewed all pertinent clinical information, including history, physical exam and plan: Yes Notes (Text): 05/16/18 09:35 I have seen and examined patient with GI fellow. No acute events overnight, she is seen resting in bed comfortably. She denies abdominal pain, nausea, vomiting, fever/chills. No bowel movements over past 48 hours. Tolerating PO diet without difficulty. Decompensated HCV cirrhosis Ascites, s/p paracentesis - no presence of SBP on ascitic fluid analysis Anemia s/p EGD showing large esophageal varices s/p band ligation - Low sodium diet as tolerated - May discontinue octreotide and PPI infusion therapy - Begin once daily PPI - Continue with diuretic therapy, monitor electrolytes - Continue antibiotic therapy for 2 additional days - H/H stable, continue to monitor - From GI standpoint ok to discharge home with subsequent outpatient follow up. She will require repeat EGD for variceal surveillance within 2 months. Will sign off case, please reconsult as necessary, thank you.
[2018-05-16] MEDS: Saccharomyces Boulardi 250 mg Cap PO SCH ×2 (10:06→21:57)
[2018-05-16] MEDS: Pantoprazole 40 mg EC Tab PO SCH (10:06)
[2018-05-16] MEDS: PALIPERIDONE 6 MG PO SCH (10:08)
--- NOTE | 2018-05-16 14:06 | CP.PCM.PN ---
Subjective - Date & Time of Evaluation Date of Evaluation: 05/16/18 Time of Evaluation: 08:30 - Subjective Subjective: clinically same Objective - Vital Signs/Intake and Output Vital Signs (last 24 hours): Temp Pulse Resp BP Pulse Ox 97.4 F L 95 H 20 109/76 98 05/16/18 07:07 05/16/18 12:00 05/16/18 07:07 05/16/18 11:56 05/16/18 07:07 Intake and Output: 05/16/18 05/16/18 06:59 18:59 Intake Total 350 Balance 350 - Medications Medications: Current Medications Benztropine Mesylate (Cogentin) 1 mg PO BID [facility] Last Admin: 05/16/18 10:07 Dose: 1 mg Escitalopram Oxalate (Lexapro) 5 mg PO HS [facility] Last Admin: 05/15/18 21:30 Dose: 5 mg Furosemide (Lasix) 40 mg PO DAILY [facility] Last Admin: 05/16/18 10:21 Dose: 40 mg Home Med (Patient's Own Medication) 1 tab PO DAILY [facility] Last Admin: 05/16/18 10:08 Dose: 1 tab Ceftriaxone Sodium 1 gm/ (Sodium Chloride) 100 mls @ 100 mls/hr IVPB DAILY [facility]; Protocol Last Admin: 05/16/18 10:08 Dose: 100 mls/hr Lamotrigine (Lamictal) 25 mg PO DAILY [facility] Last Admin: 05/16/18 10:06 Dose: 25 mg Pantoprazole Sodium (Protonix Ec Tab) 40 mg PO DAILY [facility] Last Admin: 05/16/18 10:06 Dose: 40 mg Quetiapine Fumarate (Seroquel) 50 mg PO HS [facility] Last Admin: 05/15/18 21:30 Dose: 50 mg Saccharomyces Boulardii (Florastor) 250 mg PO Q12 [facility] Last Admin: 05/16/18 10:06 Dose: 250 mg Spironolactone (Aldactone) 100 mg PO DAILY [facility] Last Admin: 05/16/18 11:58 Dose: 100 mg Tramadol HCl (Ultram) 50 mg PO Q6 PRN PRN Reason: Pain, severe (8-10) Last Admin: 05/14/18 22:10 Dose: 50 mg - Labs Labs: 05/16/18 07:25 05/16/18 07:25 PT 15.3 SECONDS (9.7-12.2) H 05/12/18 22:04 INR 1.4 05/12/18 22:04 APTT 28 SECONDS (21-34) 05/12/18 22:04 - Constitutional Appears: Well - Head Exam Head Exam: ATRAUMATIC, NORMAL INSPECTION, NORMOCEPHALIC - Eye Exam Eye Exam: EOMI, Normal appearance, PERRL Pupil Exam: NORMAL ACCOMODATION, PERRL - ENT Exam ENT Exam: Mucous Membranes Moist, Normal Exam - Neck Exam Neck Exam: Full ROM, Normal Inspection. absent: Lymphadenopathy - Respiratory Exam Respiratory Exam: Decreased Breath Sounds - Cardiovascular Exam Cardiovascular Exam: REGULAR RHYTHM, +S1, +S2 - GI/Abdominal Exam GI & Abdominal Exam: Soft, Diminished Bowel Sounds - Rectal Exam Rectal Exam: Deferred
--- NOTE | 2018-05-16 14:34 | US ---
Date of Procedure: 05/15/2018 PROCEDURE: Ultrasound-guided paracentesis, CPT 73627 Medications: 7 cc 1% Lidocaine HISTORY: Ascites, abdominal pain, cirrhosis TECHNIQUE: Following informed consent , the patient was placed supine on the stretcher and the site was marked. A limited abdominal ultrasound was performed that showed a small amount of intra-abdominal fluid. Procedural time out was called and the Pt's abdomen was marked and prepped and draped in the usual sterile fashion. Ultrasound-guided paracentesis performed. A total of 700 cc of straw colored fluid was removed without complication. Fluid specimen was sent for culture, sensitivity, cytology and chemistries. IMPRESSION: Ultrasound-guided paracentesis.
[2018-05-17 00:23] VITALS: O2SAT 95
[2018-05-17 07:53] LABS: MEAN CELL VOLUME 86.6 fL (81.0-99.0); MEAN CORPUSCULAR HEMOGLOBIN 28.8 pg (27.0-31.0); MEAN CORPUSCULAR HGB CONC 33.3 g/dL (33.0-37.0); MEAN PLATELET VOLUME 8.4 fL (7.2-11.7); RBC 2.45 Mil/uL (3.80-5.20); RED CELL DISTRIBUTION WIDTH 18.1 % (11.5-14.5); WHITE BLOOD COUNT 2.6 K/uL (4.8-10.8)
[2018-05-17 08:11] VITALS: PULSE 74; TEMP 98
[2018-05-17 08:20] LABS: ALB/GLOB RATIO 0.9 (1.0-2.1); ALBUMIN 2.3 g/dL (3.5-5.0); ALT/SGPT 106 U/L (9-52); AST/SGOT 113 U/L (14-36); BLOOD UREA NITROGEN 8 mg/dL (7-17); CALCIUM 7.1 mg/dl (8.6-10.4); GFR NON-AFRICAN AMERICAN > 60
[2018-05-17] MEDS ORDERED: Potassium Chloride 20 mEq ER Tab PO ONE (10:00)
[2018-05-17] MEDS: PALIPERIDONE 6 MG PO SCH (10:31)
[2018-05-17] MEDS: Saccharomyces Boulardi 250 mg Cap PO SCH (10:32)
[2018-05-17] MEDS: Pantoprazole 40 mg EC Tab PO SCH (10:32)
[2018-05-17 10:33] VITALS: BP 96/73
--- NOTE | 2018-05-17 12:32 | CP.PCM.PN ---
Subjective - Date & Time of Evaluation Date of Evaluation: 05/17/18 Time of Evaluation: 12:32 - Subjective Subjective: PATIENT SEEN AND EXAMINED AT THE BEDSIDE Objective - Vital Signs/Intake and Output Vital Signs (last 24 hours): Temp Pulse Resp BP Pulse Ox 98 F 74 20 96/73 L 95 05/17/18 08:00 05/17/18 08:00 05/17/18 08:00 05/17/18 10:31 05/17/18 08:00 - Medications Medications: Current Medications Benztropine Mesylate (Cogentin) 1 mg PO BID [facility] Last Admin: 05/17/18 10:31 Dose: 1 mg Escitalopram Oxalate (Lexapro) 5 mg PO HS [facility] Last Admin: 05/16/18 21:57 Dose: 5 mg Ferrous Sulfate (Feosol) 325 mg PO TID [facility] Last Admin: 05/17/18 10:32 Dose: 325 mg Folic Acid (Folic Acid) 1 mg PO DAILY [facility] Last Admin: 05/17/18 10:32 Dose: 1 mg Furosemide (Lasix) 40 mg PO DAILY [facility] Last Admin: 05/17/18 10:31 Dose: Not Given Home Med (Patient's Own Medication) 1 tab PO DAILY [facility] Last Admin: 05/17/18 10:31 Dose: 1 tab Ceftriaxone Sodium 1 gm/ (Sodium Chloride) 100 mls @ 100 mls/hr IVPB DAILY [facility]; Protocol Last Admin: 05/17/18 10:33 Dose: 100 mls/hr Lamotrigine (Lamictal) 25 mg PO DAILY [facility] Last Admin: 05/17/18 10:32 Dose: 25 mg Pantoprazole Sodium (Protonix Ec Tab) 40 mg PO DAILY [facility] Last Admin: 05/17/18 10:32 Dose: 40 mg Potassium Chloride (K-Dur 20 Meq Er Tab) 40 meq PO DAILY [facility] Quetiapine Fumarate (Seroquel) 50 mg PO HS [facility] Last Admin: 05/16/18 21:57 Dose: 50 mg Saccharomyces Boulardii (Florastor) 250 mg PO Q12 [facility] Last Admin: 05/17/18 10:32 Dose: 250 mg Spironolactone (Aldactone) 100 mg PO DAILY [facility] Last Admin: 05/17/18 10:31 Dose: 100 mg Tramadol HCl (Ultram) 50 mg PO Q6 PRN PRN Reason: Pain, severe (8-10) Last Admin: 05/14/18 22:10 Dose: 50 mg - Labs Labs: 05/17/18 07:48 05/17/18 07:48 PT 15.3 SECONDS (9.7-12.2) H 05/12/18 22:04 INR 1.4 05/12/18 22:04 APTT 28 SECONDS (21-34) 05/12/18 22:04 Assessment and Plan - Assessment and Plan (Free Text) Assessment: FOLLOW UP WITH DR Austin SORIANO IN HIS OFFICE -----CALL FOR APPOINTMENT FOLLOW UP WITH DR CUMMINS IN HIS OFFICE -----CALL FOR APPOINTMENT ADDRESS YOUR FOLLOW UP EGD ( NEED TO BE REPEAT IN 8 WEEKS) AT YOUR VISIT [facility] HOME MEDICATION NEW PRESCRIPTION GIVEN PROTONIX 40 MG BY MOUTH DAILY FOR 8 WEEKS FOLIC ACID 1 MG BY MOUTN DAILY IRON TAB 325 MG BY MOUTH DAILY ALDACTONE 50 MG PO DAILY LASIX 20 MG PO DAILY ACTIVITY TOLERATED CALL DR Austin SORIANO OR DR CUMMINS OR GO TO THE EMERGENCY ROOM IF SYMPTOM RETURN OR WORSENING Follow up with PMD AND Return to ED if feel worse.
[2018-05-17] MEDS ORDERED: Potassium Chloride 20 mEq ER Tab PO SCH (14:00)
--- NOTE | 2018-05-23 17:40 | PQF ---
PROVIDER RESPONSE TEXT: Gi bleeding secondary to bleeding fro upper stomach area/eosphageal varices REVIEWER QUERY TEXT: Clarification of Clinical Diagnostic Findings Please clarify documentation or clinical relevance for the clinical / diagnostic findings or whether those are insignificant or unable to be further specified. The patient's Clinical Indicators include: LINDA, CLARIFY (IF KNOW) THE ETIOLOGY OF GI BLEEDING AND ANEMIA PATIENT WITH ANEMIA, GI BLEEDING ( melena) chronic Hepatitis C , CIRRHOSIS , ASCITES EGD FINDING ESOPHAGEAL VARICES, GASTRITIS PARACENTESIS DONE BANDING OF VARICES ALSO DONE BLOOD TRANSFUSION , Query created by: Stephanie Neves on 05/22/2018 7:13 PM Electronically signed by: Surendra VAZQUEZ 05/23/2018 5:37 PM
== END 2018-05-17 15:11 | disposition home or self-care (01) | DRG 432 ==
LOC: C.ER 16:45 → C.9E 20:47 → C.5S 21:31
PROVIDERS: ADMIT Internal Medicine Nephrology; ATTEND Internal Medicine Nephrology
PROC: 30233N1 Transfusion of Nonautologous Red Blood Cells into Peripheral Vein, Percutaneous Approach (ICD-10-PCS; 2018-05-12)
PROC: 0DB68ZX Excision of Stomach, Via Natural or Artificial Opening Endoscopic, Diagnostic (ICD-10-PCS; 2018-05-13)
PROC: 06L38CZ Occlusion of Esophageal Vein with Extraluminal Device, Via Natural or Artificial Opening Endoscopic (ICD-10-PCS; principal; 2018-05-13 10:30)
PROC: 0W9G3ZZ Drainage of Peritoneal Cavity, Percutaneous Approach (ICD-10-PCS; 2018-05-15)
PROC: BW40ZZZ Ultrasonography of Abdomen (ICD-10-PCS; 2018-05-15)
DX: K74.69 Other cirrhosis of liver (principal); I85.11 Secondary esophageal varices with bleeding; R18.8 Other ascites; S93.401A Sprain of unspecified ligament of right ankle, initial encounter; D50.0 Iron deficiency anemia secondary to blood loss (chronic); B18.2 Chronic viral hepatitis C; K29.50 Unspecified chronic gastritis without bleeding; R00.0 Tachycardia, unspecified; F20.9 Schizophrenia, unspecified; G40.909 Epilepsy, unspecified, not intractable, without status epilepticus; F31.9 Bipolar disorder, unspecified; F60.9 Personality disorder, unspecified; Z96.651 Presence of right artificial knee joint; X50.1XXA Overexertion from prolonged static or awkward postures, initial encounter; Z86.73 Personal history of transient ischemic attack (TIA), and cerebral infarction without residual deficits; Z90.49 Acquired absence of other specified parts of digestive tract